=== PATIENT | male | born 1945 | race African-American/Black ===

== ENCOUNTER 2016-05-09 17:01 | Inpatient (IN) | payer MEDICARE, OTHER ==
[~2016-05-09] VITALS: Ht 180.3 cm; Wt 72.1 kg
[~2016-05-09 17:01] MED LIST: ATOR40TA68 PO; FERR325C PO; FOLI-49 PO; RISP4TAB38 PO; SYN2 PO; TAMS0.4C2 PO
[2016-05-09] MEDS ORDERED: IMIPENEM-CILAST 500MG IV (PMX) 100 ML IVPB STA (17:34)
[2016-05-09] MEDS ORDERED: SODIUM CHLORIDE 0.9% 1L BAG IV* STA (17:34)
--- NOTE | 2016-05-09 17:40 | ERA ---
ER Documentation Chief Complaint Date/Time DATE: 05/09/16 TIME: 17:35 Chief Complaint HPI Patient is a 70-year-old male who is brought here for fever and elevated [facility] count [facility]. Patient himself says he is fine and he does not know why he is here. He is more concerned about his [place] food which was left at the [facility]. He denies any chest pain, coughing, congestion, rhinorrhea, sore throat, or otalgia. He denies any abdominal pain, nausea, vomiting, diarrhea, dysuria, or hematuria. He says that he knows he had a fever because he poured sweat earlier but that he feels fine from that. He says he also had a lot of urine come out his Blackmon bag. Remainder of the systems are negative. ROS All systems reviewed and are negative except as per history of present illness. Medications Home Meds Reported Medications Acetaminophen* (Tylenol*) 325 Mg Tablet, 650 MG PO Q6H Y for MILD PAIN LEVEL 1-3 , TAB FOR FEVER>101 05/09/16 Ondansetron Hcl* (Zofran*) 4 Mg Tablet, 4 MG PO Q4H Y for NAUSEA AND OR VOMITING , TAB 05/09/16 Hydrocodone/Acetaminophen ([place] 5-325 Tablet) 1 Each Tablet, 1 EACH PO Q4H, TAB 05/09/16 Levothyroxine Sodium* (Synthroid*) 175 Mcg Tablet, 175 MCG PO BEFORE BREAKFAST, #30 TAB 05/09/16 Olanzapine* (Zyprexa*) 5 Mg Tablet, 5 MG PO BID, #30 TAB 05/09/16 Pantoprazole* (Protonix*) 40 Mg Tablet.dr, 40 MG PO QAM, TAB 05/09/16 Divalproex Sodium* (Depakote*) 500 Mg Tablet.dr, 500 MG PO BID, #60 TAB 05/09/16 Multivitamin with Minerals (Multivitamins with Minerals) 1 Each Tablet, 1 EACH PO DAILY, TAB 05/09/16 Amoxicillin/Potassium Clav (Amox-Clav 500-125 mg Tablet) 500-125 mg Tab, 1 TAB PO TID for 20 Days, TAB 05/09/16 Sulfamethoxazole-Trimethoprim* (Bactrim* DS) 800-160 Mg Tab, 1 TAB PO BID, #20 TAB 05/09/16 Tamsulosin Hcl* (Tamsulosin Hcl*) 0.4 Mg Cap.er.24h, 0.4 MG PO BID, CAP 08/19/13 Ferrous Sulfate (Iron) 325 Mg Capsr, 325 MG PO DAILY 08/19/13 Discontinued Reported Medications Levothyroxine Sodium* (Synthroid*) 200 Mcg Tablet, 200 MCG PO AC BREAKFAST, TAB 08/19/13 Risperidone* (Risperdal*) 4 Mg Tablet, 4 MG PO HS, TAB 08/19/13 Folic Acid* (Folic Acid*) 1 Mg Tablet, 1 MG PO DAILY, TAB 08/19/13 Atorvastatin* (Atorvastatin*) 40 Mg Tablet, 40 MG PO HS, TAB 08/19/13 Allergies Allergies: Coded Allergies: lithium (Unverified Allergy, Unknown, 05/09/16) PMhx/Soc History of Surgery: No Anesthesia Reaction: No Hx Neurological Disorder: No Hx Respiratory Disorders: No Hx Cardiac Disorders: No Hx Psychiatric Problems: No Hx Miscellaneous Medical Probl: No Hx Alcohol Use: No Hx Substance Use: No Hx Tobacco Use: No Physical Exam Vitals Vital Signs Date Time Temp Pulse Resp B/P Pulse Ox O2 Delivery O2 Flow Rate FiO2 05/09/16 18:10 99.7 97 17 121/58 100 Room Air 05/09/16 18:00 99.7 102 17 104/62 98 Physical Exam Const: [] Well-developed well-nourished -Samoan male sitting on the bed in no acute distress. He seems to have some tangential thinking. Head: Atraumatic normocephalic Eyes: Normal Conjunctiva ENT: Normal External Ears, Nose and Mouth. Neck: Full range of motion..~ No meningismus. Resp: Clear to auscultation bilaterally Cardio: Regular rate and rhythm, no murmurs Abd: Soft, non tender, non distended. Normal bowel sounds, no masses, rebound , or guarding Skin: No petechiae or rashes Back: No midline or flank tenderness Ext: No cyanosis, or edema Neur: Awake and alert, oriented to himself and to place but not to month or year, moves all extremities equally although generally weak, grossly nonfocal Psych: Normal Mood and Affect, very pleasant Result Diagram: 05/09/16 1803 05/09/161802 Results 24 hrs Laboratory Tests Test 05/09/16 18:03 05/09/16 18:35 White Blood Count 15.510^3/ul Red Blood Count 4.4410^6/ul Hemoglobin 10.9g/dl Hematocrit 36.5% Mean Corpuscular Volume 82.2fl Mean Corpuscular Hemoglobin 24.5pg Mean Corpuscular Hemoglobin Concent 29.9g/dl Red Cell Distribution Width 16.8% Platelet Count 43377^3/UL Mean Platelet Volume 10.5fl Neutrophils % 83.0% Lymphocytes % 10.3% Monocytes % 6.3% Eosinophils % 0.0% Basophils % 0.1% Nucleated Red Blood Cells % 0.0/100WBC Neutrophils # 12.810^3/ul Lymphocytes # 1.610^3/ul Monocytes # 1.010^3/ul Eosinophils # 0.010^3/ul Basophils # 0.010^3/ul Nucleated Red Blood Cells # 0.010^3/ul Prothrombin Time 15.8Sec Prothrombin Time Ratio 1.2 INR International Normalized Ratio 1.25 Activated Partial Thromboplast Time 34.5Sec Sodium Level 138mmol/L Potassium Level 4.3mmol/L Chloride Level 97mmol/L Carbon Dioxide Level 28mmol/L Anion Gap 17 Blood Urea Nitrogen 30mg/dl Creatinine 1.71mg/dl Glucose Level 117mg/dl Lactic Acid Level 1.4mmol/L Calcium Level 10.0mg/dl Total Bilirubin 0.2mg/dl Direct Bilirubin 0.00mg/dl Indirect Bilirubin 0.2mg/dl Aspartate Amino Transf (AST/SGOT) 38IU/L Alanine Aminotransferase (ALT/SGPT) 35IU/L Alkaline Phosphatase 117IU/L Troponin I < 0.012ng/ml Total Protein 9.5g/dl Albumin 3.9g/dl Globulin 5.60g/dl Albumin/Globulin Ratio 0.69 Urine Color LT. YELLOW Urine Clarity CLOUDY Urine pH 6.0 Urine Specific [place] 1.015 Urine Ketones NEGATIVE Urine Nitrite POSITIVE Urine Bilirubin NEGATIVE Urine Urobilinogen 0.2 E.U./dL Urine Leukocyte Esterase 2+ Urine Microscopic RBC 5-10/HPF Urine Microscopic WBC >200/HPF Urine Squamous Epithelial Cells RARE Urine Bacteria MANY Urine Hemoglobin 1+ Urine Glucose NEGATIVE% Urine Total Protein 1+ Current Medications Medications (Trade) Dose Ordered Sig/Ramirez Route PRN Reason Start Time Stop Time Status Last Admin Dose Admin Sodium Chloride 2170 ml 2,170 ml BOLUS OVER 2 HOURS STAT IV* 05/09/16 17:34 05/09/16 17:36 DC 05/09/16 18:10 Imipenem/ Cilastatin Sodium (Primaxin 500 Mg/ 100 ml (Pmx)) 100 ml @ 100 mls/hr ONCE STAT IVPB 05/09/16 17:34 05/09/16 18:33 DC 05/09/16 18:59 Procedures/MDM Differential includes but is not limited to leukocytosis of unclear etiology, urinary tract infection, sepsis, pneumonia EKG: Rate/Rhythm: Normal Sinus Rhythm at 90 bpm without any evidence of acute ischemia, arrhythmia, or ectopy noted, no old EKG available for comparison QRS, ST, T-waves: No changes consistent w/ acute ischemia Impression: No evidence of ischemia or arrhythmia Chest x-ray reveals no evidence for acute cardiopulmonary process CT of abdomen and pelvis shows right hydronephrosis and right perinephric stranding consistent with possible pyelonephritis, no other acute findings noted per the radiologist 192: Patient remains hemodynamically stable. I spoke with his primary care physician to have him admitted to the hospital for pyelonephritis. Departure Diagnosis: Primary Impression: Pyelonephritis Additional Impressions: Leukocytosis Qualified Code: D72.825 - Bandemia Urinary retention due to benign prostatic hyperplasia Condition: ANÍBAL Apodaca May 09, 2016 17:40
[2016-05-09 18:10] VITALS: TEMP 99.7
[2016-05-09 18:25] LABS: ADD SCAN DIFF NO
[2016-05-09 18:30] LABS: BASOPHILS % 0.1 % (0.0-2.0); HEMATOCRIT 36.5 % (42.0-52.0); HEMOGLOBIN 10.9 g/dl (14.0-18.0); LYMPHOCYTES # 1.6 10^3/ul (0.8-2.9); LYMPHOCYTES % 10.3 % (15.0-51.0); MEAN CORPUSCULAR HEMOGLOBIN 24.5 pg (29.0-33.0); MEAN CORPUSCULAR HGB CONC 29.9 g/dl (32.0-37.0); MEAN CORPUSCULAR VOLUME 82.2 fl (82.0-101.0); MEAN PLATELET VOLUME 10.5 fl (7.4-10.4); MONOCYTES % 6.3 % (0.0-11.0); NEUTROPHIL # 12.8 10^3/ul (1.6-7.5); PLATELET COUNT 352 10^3/UL (140-415); RED BLOOD COUNT 4.44 10^6/ul (4.70-6.10); RED CELL DISTRIBUTION WIDTH 16.8 % (11.5-14.5); WHITE BLOOD COUNT 15.5 10^3/ul (4.8-10.8)
[2016-05-09 18:40] LABS: ALBUMIN 3.9 g/dl (3.3-4.9)
[2016-05-09 18:41] LABS: CHLORIDE 97 mmol/L (97-110); POTASSIUM 4.3 mmol/L (3.5-5.1); PT RATIO 1.2; SODIUM 138 mmol/L (135-144)
[2016-05-09 18:42] LABS: PARTIAL THROMBOPLASTIN TIME 34.5 Sec (25.0-35.0)
[2016-05-09 18:43] LABS: ANION GAP 17 (8-16); ASPARTATE AMINO TRANSFERASE 38 IU/L (15-46); BILIRUBIN,INDIRECT 0.2 mg/dl (0-1.1); BILIRUBIN,TOTAL 0.2 mg/dl (0.2-1.3); CARBON DIOXIDE 28 mmol/L (21-31); CREATININE 1.71 mg/dl (0.61-1.24)
[2016-05-09 18:44] LABS: ALANINE AMINOTRANSFERASE 35 IU/L (13-69); ALBUMIN/GLOBULIN RATIO 0.69; ALKALINE PHOSPHATASE 117 IU/L (42-121); BLOOD UREA NITROGEN 30 mg/dl (7-20); GLUCOSE 117 mg/dl (70-220); TOTAL PROTEIN 9.5 g/dl (6.1-8.1)
[2016-05-09] MEDS ORDERED: AMOX1TAB9 PO (18:53)
[2016-05-09] MEDS ORDERED: BACTDS PO (18:53)
[2016-05-09] MEDS ORDERED: MULT-105 PO (18:54)
[2016-05-09] MEDS ORDERED: DIVA500T7 PO (18:55)
[2016-05-09 18:56] LABS: ADD UMIC YES; URINE BILIRUBIN (Dip) NEGATIVE (NEGATIVE); URINE BLOOD (Dip) 1+ (NEGATIVE); URINE COLOR LT. YELLOW (YELLOW); URINE GLUCOSE (Dip) NEGATIVE (NEGATIVE); URINE KETONES (Dip) NEGATIVE (NEGATIVE); URINE LEUKOCYTE ESTERASE (Dip) 2+ (NEGATIVE); URINE NITRITE (Dip) POSITIVE (NEGATIVE); URINE TOTAL PROTEIN (Dip) 1+ (NEGATIVE); URINE UROBILINOGEN (Dip) 0.2 E.U./dL (0.1-1.0)
[2016-05-09] MEDS ORDERED: PANT40TA3 PO (18:56)
[2016-05-09] MEDS ORDERED: LEVO175T2 PO (18:57)
[2016-05-09] MEDS ORDERED: OLAN5TAB5 PO (18:57)
--- NOTE | 2016-05-09 18:57 | RADRPT ---
PROCEDURE: XR Chest. CLINICAL INDICATION: Possible sepsis. TECHNIQUE: PA erect view of the chest was obtained. COMPARISON: None. FINDINGS: The cardiomediastinal silhouette is within normal limits. The lungs are clear. There is no evidenc e for pleural effusion, pneumothorax or pulmonary vascular congestion. The osseous structures are i ntact with no evidence for acute abnormality. RPTAT:HJJR IMPRESSION: No evidence for acute intrathoracic pathology. Physician Radha Date Time Electronically viewed and signed by Physician Radha on 05/09/2016 18:57 JR/
[2016-05-09] MEDS ORDERED: HYDR-906 PO (18:58)
[2016-05-09] MEDS ORDERED: ONDA4TAB8 PO (18:58)
[2016-05-09] MEDS ORDERED: ACET325T33 PO (19:00)
[2016-05-09 19:03] LABS: TROPONIN-I < 0.012 ng/ml (0.00-0.12)
[2016-05-09 19:08] LABS: BACTERIA,URINE MANY; SQUAMOUS EPITHELIAL CELL,UR RARE
--- NOTE | 2016-05-09 19:10 | RADRPT ---
PROCEDURE: CT Abdomen and Pelvis without contrast. CLINICAL INDICATION: Fever. White cell count. TECHNIQUE: CT scan of the abdomen and pelvis was performed on a multidetector slice CT scanner. No intravenous contrast material was utilized. Sagittal and coronal reformatted images were obtained fr om the axial source images. Images were reviewed on a high-resolution PACS workstation. Exam CTDlvol = 7 mGy and DLP = 391 Gy-cm. One of the following 3 dose reduction techniques were used: Automated exposure control; adjustment of the mA and/or kV according to patient size; or use of iterative zachary nstruction technique. COMPARISON: None. FINDINGS: There is asymmetric right greater left perinephric stranding. There is mild right hydronephrosis an d diffuse hydroureter without a obstructing calculus. There is no left-sided hydronephrosis, calcul us or hydroureter. There is a Blackmon catheter within urinary bladder with likely related intraluminal gas. The bladder contents are mildly dense suggesting other hemorrhage or infection/positive. Wal ls of the urinary bladder and prostate gland are not well defined. There is no obstruction or ileus. The probable appendix is visualized and is normal in appearance. There is no evidence for appendicitis.. There is proximal sigmoid colon diverticulosis without evid ence for diverticulitis. There is minimal pelvic free fluid. The liver is overall normal in size. No intrahepatic lesions are identified. The gallbladder is norm al in appearance. There is no definite biliary ductal dilation. Pancreas is normal in appearance. Th e spleen is unremarkable.. There are no adrenal masses. The aorta is normal caliber. Atheroscleroti c vascular calcifications are present.. Uterus unremarkable. The ovaries are not well characterized. Limited evaluation lung bases is unremarkable. There are degenerative changes of the lumbar spine. IMPRESSION: 1. Right perinephric stranding. Mild right hydronephrosis and diffuse hydroureter without obstructi ng calculus. No calculus within urinary bladder. Relatively hyperdense bladder contents. Findings are suggestive of a passed calculus with possible hemorrhage within urinary bladder. Other conside rations include a pyelonephritis with infection/possible in the right renal collecting system the ur inary bladder. A cystitis cannot be excluded. 2. Probable appendix normal in appearance. 3. Sigmoid colon diverticulosis without focal changes to suggest acute diverticulitis. 4. Minimal pelvic free fluid. RPTAT: HMVK .Rei Martinez MD, MD Date Time Electronically viewed and signed by .Rei Martinez MD, MD on 05/09/2016 19:09 .K/
[2016-05-09 19:26] LABS: INR 1.25; PROTIME 15.8 Sec (12.2-14.2)
[2016-05-09] MEDS ORDERED: ONDANSETRON 4 MG INJ IV PRN ×2 (19:30→23:30)
[2016-05-09] MEDS ORDERED: ACETAMINOPHEN 325 MG TAB PO PRN ×2 (19:30→23:30)
[2016-05-09 21:35] VITALS: Ht 180.3 cm; Wt 72.1 kg
[2016-05-09 21:45] VITALS: BP 118/55; RESP 18
[2016-05-09] MEDS ORDERED: GUAIFENESIN/CODEINE 5ML CUP PO PRN (22:30)
[2016-05-09] MEDS ORDERED: ZOLPIDEM 5 MG TAB PO PRN (23:30)
[2016-05-09] MEDS ORDERED: NACL 0.9% 3 ML SYG IV SCH (23:30)
[2016-05-09] MEDS ORDERED: morphine 2 MG INJ IV PRN (23:30)
[2016-05-09] MEDS ORDERED: DOCUSATE SODIUM 100 MG CAP PO PRN (23:30)
[2016-05-09] MEDS ORDERED: MAGNESIUM HYDROXIDE 30ML CUP PO PRN (23:30)
[2016-05-09] MEDS: SOD CHLORIDE 0.9% 1,000 ML IV SCH (23:44)
[2016-05-10] MEDS: IMIPENEM-CILAST 500MG IV (PMX) 100 ML IV SCH ×3 (05:21→22:15)
[2016-05-10] MEDS: PANTOPRAZOLE (EC) 40 MG TAB PO SCH (05:21)
[2016-05-10 05:52] LABS: ADD SCAN DIFF NO
[2016-05-10 06:10] LABS: BASOPHILS % 0.1 % (0.0-2.0); EOSINOPHILS % 0.2 % (0.0-7.0); HEMATOCRIT 31.1 % (42.0-52.0); HEMOGLOBIN 9.2 g/dl (14.0-18.0); LYMPHOCYTES # 1.2 10^3/ul (0.8-2.9); LYMPHOCYTES % 11.8 % (15.0-51.0); MEAN CORPUSCULAR HEMOGLOBIN 25.1 pg (29.0-33.0); MEAN CORPUSCULAR HGB CONC 29.6 g/dl (32.0-37.0); MEAN PLATELET VOLUME 11.1 fl (7.4-10.4); MONOCYTE # 0.9 10^3/ul (0.3-0.9); MONOCYTES % 8.6 % (0.0-11.0); NEUTROPHIL # 8.2 10^3/ul (1.6-7.5); NEUTROPHILS % 78.9 % (39.0-77.0); RED BLOOD COUNT 3.66 10^6/ul (4.70-6.10); RED CELL DISTRIBUTION WIDTH 17.2 % (11.5-14.5); WHITE BLOOD COUNT 10.4 10^3/ul (4.8-10.8)
[2016-05-10 06:22] LABS: PLATELET COUNT 278 10^3/UL (140-415)
[2016-05-10 06:23] LABS: ALBUMIN 2.8 g/dl (3.3-4.9)
[2016-05-10 06:24] LABS: POTASSIUM 4.3 mmol/L (3.5-5.1)
[2016-05-10 06:26] LABS: ALBUMIN/GLOBULIN RATIO 0.62; CREATININE 1.3 mg/dl (0.61-1.24); TOTAL PROTEIN 7.3 g/dl (6.1-8.1)
[2016-05-10 06:27] LABS: CALCIUM 8.5 mg/dl (8.4-10.2); MAGNESIUM 2.3 mg/dl (1.7-2.5); PHOSPHORUS 3.4 mg/dl (2.5-4.9)
[2016-05-10 06:52] LABS: THYROID STIMULATING HORMONE 0.062 MIU/L (0.465-4.680)
[2016-05-10] MEDS ORDERED: LEVOTHYROXINE 175 MCG TAB PO SCH (07:00)
[2016-05-10 08:12] VITALS: BP 117/63; RESP 18
[2016-05-10] MEDS: OLANZAPINE 5 MG TAB PO SCH ×2 (08:58→20:58)
[2016-05-10] MEDS: HEPARIN 5,000 UNIT/0.5 ML VIAL SC SCH ×2 (09:07→21:00)
[2016-05-10] MEDS: DIVALPROEX (EC) 500 MG TAB PO SCH ×2 (09:25→20:57)
[2016-05-10] MEDS: SOD CHLORIDE 0.9% 1,000 ML IV SCH ×2 (11:32→13:30)
--- NOTE | 2016-05-10 16:21 | CONS ---
DATE OF ADMISSION: 05/09/2016 DATE OF CONSULTATION: 05/10/2016 TYPE OF CONSULTATION: Infectious Disease. REASON FOR CONSULTATION: Antibiotic management. HISTORY OF PRESENT ILLNESS: Florentino Haas is a 70-year-old black male with a number of problems, w ho was brought in from the from a senior care with fever and elevated white count. He denies chest pain, coughing, congestion. Denies abdominal pain. He knows he had a fever because he had sweat e arlier. His past problems include: 1. Hypothyroidism. 2. Hyperlipidemia. 3. Blackmon catheter for urinary retention. 4. Depression. 5. ALLERGY TO LITHIUM. On admission, his white count was 15.5, H and H of 10.9 and 36.5, platelet count 352,000. BUN and c reatinine 30/1.71, glucose 117. PAST MEDICAL HISTORY: Operations as outlined. FAMILY HISTORY: Noncontributory. SOCIAL HISTORY: Does not smoke, drink or abuse drugs. ALLERGIES: NONE TO PENICILLIN, SULFA OR FOODS. MEDICATIONS: Per chart. REVIEW OF SYSTEMS: Noncontributory. PHYSICAL EXAMINATION: GENERAL: The patient is a well-developed, well-nourished black male who is awake, responsive, in no acute distress. VITAL SIGNS: Stable. He is afebrile. SKIN: Without generalized rash. HEENT: Within normal limits. NECK: Supple. LYMPH NODES: None palpable. CHEST: Decreased breath sounds at the bases. HEART: Without murmur or gallop. ABDOMEN: Soft, nontender, without organosplenomegaly or masses. EXTREMITIES: Without cyanosis, clubbing, or edema. RECTAL AND GENITAL: Deferred. NEUROLOGICAL: No focal neurological abnormalities. HOSPITAL COURSE: His white count today dropped from 15.5 to 10.4. BUN and creatinine is 25/1.3. C hest x-ray: No evidence of acute intrathoracic pathology. CT scan of the abdomen and pelvis shows right perinephric stranding, mild right hydroureter and diffuse hydroureter with obstructing calculu s, relatively hyperdense bladder contents suggestive of passed calculus. His urine grew out greater than 10 to the 5th gram-negative rods. Wound culture of the right buttock and left buttock are pen ding. IMPRESSION AND PLAN: The patient was started on imipenem for broad spectrum antibiotic therapy. Hi s MRSA screen was done and urine culture and blood cultures were done, so we will await final result s of his Gram stain and for pyelonephritis and for urinary tract infection. I will dictate my findi ngs to Dr. Tate. Dictated By: PATRICK CLEMONS MD, JD/ROLANDO Conf#: [id number] DID#: [id number]
--- NOTE | 2016-05-10 18:24 | HP ---
DATE OF ADMISSION: 05/09/2016 REASON FOR ADMISSION: Urinary tract infection, pyelonephritis, acute renal failure, dehydration, mu ltiple perirectal abscesses, early sepsis. HISTORY OF PRESENT ILLNESS: The patient is a very unfortunate 70-year-old -Mongolian male w ith a history of COPD, urinary retention, BPH, multiple perirectal abscesses, anemia, gastroesophage al reflux disease, hypothyroidism, psychiatric disorder, who currently resides at [facility]. He was previously admitted under my care to [facility] fo r almost the same. The patient was noted to have increasing leukocytosis, and he was recently start ed on antibiotics. Unfortunately, the patient also was noted to be more psychotic, with may be rel ated to the above infectious process. It was decided to send the patient for evaluation. In the E R, the patient was febrile at 99.7, white count was elevated at 15.5, and he had elevated BUN and cr eatinine of 30 and 1.71. Urine was remarkably positive at greater than 200 WBCs and positive nitrat es and leukocyte esterase was seen. He was also noted to have multiple ____ rectal abscesses. The patient has seen Dr. Jona Espinoza, the urologist, on an outpatient basis, and at that time it was recommended for him to keep the Blackmon, as the patient has been refusing prostate surgery and also, h e was recommended by Dr. Villareal, the colorectal surgeon, to follow up and [facility] for further care. In e meantime, Sitz baths were recommended and local wound care. Unfortunately, the patient still has quite a lot of problems regarding his urinary and rectal issues. The patient overall is somewhat ps ychotic, does not understand the patient's condition, refused previous surgeries or testing, not lindsey y compliant. The patient otherwise denies any chest pain or shortness of breath, denies any fever o r chills, denies any abdominal pain. He is requesting to smoke. The patient was admitted. PAST MEDICAL HISTORY: Includes: 1. COPD. 2. Perirectal abscesses. 3. Muscle weakness. 4. Hypothyroidism. 5. Anemia. 6. Nicotine dependency. 7. Psychiatric disorder. ALLERGIES: LITHIUM. MEDICATIONS: Include the followin. Flomax 0.4 ____. 2. ____daily. 3. Tylenol p.r.n. 4. Depakote 500 b.i.d. 5. [place] 5/325 q. 4 p.r.n. 6. Zyprexa 5 b.i.d. 7. Zofran p.r.n. 8. Protonix 40 mg daily. 9. Synthroid 175 mcg daily. 10. Multivitamin 1 tab daily. CODE STATUS: I reviewed his advance directive. It stated that he is DNR with selective treatment, okay to transfer to hospital if no comfort can be made. FAMILY HISTORY: Unknown. SOCIAL HISTORY: Tobacco, smokes actively. Alcohol, IV drug abuse: Denies. PHYSICAL EXAMINATION: VITAL SIGNS: Temperature 98.8, pulse is 77, respirations 18, blood pressure 117/66, oxygen saturat ion 98% on room air. GENERAL: The patient is in no acute distress, pale, decreased dentition. CARDIOVASCULAR: S1 and S2. LUNGS: Faint wheezing. ABDOMEN: Soft, nontender. EXTREMITIES: No cyanosis, clubbing or edema. : Blackmon to gravity. The patient does have multiple draining abscesses with pus draining from his perirectal area. LABORATORIES: White count 10.4, improved; hemoglobin 9.2, hematocrit 31, platelet count is 278, neut rophils 79%, lymphocytes 12%. Chemistry: Sodium 138, potassium 4.3, chloride 107, bicarbonate 22 , BUN is 75, creatinine was 0.3, glucose of 115. Albumin 2.8, TSH is low at 0.062. UA shows positi ve nitrites, positive leukocyte esterase, WBC ____ at 200. Total protein +1. Hemoglobin +1. Iron 1.25. Urine culture already shows gram negative rods, ____ 100,000. Wound culture is pending. Chest x-ray shows the following : No evidence of acute intrathoracic pathology. There is a CT scan of the abdomen and pelvis which shows the following: Right perinephric strandin g, mild right hydronephrosis and diffuse hydroureter without obstructive calculus. No calculus was seen in the urinary bladder. Relatively hypodense bladder contents. Finding is suggestive of past calculus with possible hemorrhoids within the urinary bladder. Other considerations include a pyelo nephritis with infection possible in the right renal collecting system. In the urinary bladder, cys titis cannot be excluded, with probable appendix normal in appearance. Sigmoid colon: Diverticulos is without focal changes to suggest acute diverticulitis. Minimal pelvic free fluid. EKG shows normal sinus rhythm at 87 beats per minute. ASSESSMENT AND PLAN: This is a very unfortunate 70-year-old -Mongolian male with a history of psychiatric disorder, urinary retention, benign prostatic hypertrophy, multiple microabscesses, an emia, and chronic obstructive pulmonary disease who presents with pyelonephritis, urinary tract infe ction, early sepsis, also multiple infected draining perirectal abscesses. 1. Pyelonephritis. Continue imipenem. Follow up urine culture results. White count is already im proving. I appreciate ID input. 2. Perirectal abscesses, appear to be draining pus. Follow up with cultures, adjust antibiotics as needed. Colorectal surgeon will be consulted. 3. Urinary retention. We will consult Dr. Espinoza for further recommendations as the patient wants to go in an assisted living facility, which may be difficult with the Blackmon. 4. Psychiatric disorder. Continue Depakote and Zyprexa. 5. Chronic obstructive pulmonary disease, compensated. 6. Acute renal failure. The patient will be hydrated with IV fluids. Monitor urine output. 7. Hypothyroidism, now with low TSH. Will decrease dose of Synthroid 175 to 125. Follow up TSH le guilherme in 2 to 3 weeks. 8. Anemia. This may be from blood loss, as previously he had gross hematuria. May need to limit b lood thinners. Followup H and H. Transfusion will be given as needed. 9. The patient will be placed on DVT prophylaxis with SCDs and GI prophylaxis with Protonix. We will follow. Dictated By: CHRISTINE MALDONADO/ROLANDO Conf#: [id number] DID#: [id number]
[2016-05-10 19:29] VITALS: BP 97/53; RESP 20
[2016-05-10] MEDS: TAMSULOSIN (SR) 0.4 MG CAP PO SCH (20:58)
[2016-05-10 21:00] VITALS: BP 119/57; PULSE 80; RESP 16
--- NOTE | 2016-05-10 21:47 | CONS ---
DATE OF ADMISSION: 05/09/2016 DATE OF CONSULTATION: 05/10/2016 REQUESTING PHYSICIAN: Dr. Christine Calderon Dear Christine: Thank you for asking me to see Mr. Haas in urological consultation. HISTORY OF PRESENT ILLNESS: As you know, he is a 70-year-old male who is well know n to us from his prior admission to [facility]. At that time, he was admitted with perirectal abscesses that were extending to the right hemipelvis. Also at that time, he did have an enlarged prostate with urinary retention and severe right hydronephrosis. The patient refused to h ave any surgery on his perirectal abscesses and he just only wanted it to drain by itself. Attempts were made, at the time, to remove his Blackmon catheter and see if he does void on his own and that wa s not successful. Therefore, the Blackmon catheter was put back in. He since was seen in the office 1 time. The long-term brought him to the office and I instructed them to keep the Blackmon catheter in and change it every month or earlier if it is obstructed. The patient does need to have a Blackmon catheter because of the retention, and also because if he has the retention, the urine is backing up into his right kidney. Apparently, the patient was brought here to [facility] be cause of again urinary tract infection, pyelonephritis, acute renal failure, early sepsis, and perir ectal abscesses. The patient does have psychiatric problems and he is on psychiatric medications. MEDICATIONS: Include: 1. Benzonatate 100 mg 3 times a day. 2. Benztropine 1 mg 2 times a day. 3. Depakote 250 mg 2 times a day. 4. Flomax 0.4 mg daily. 5. Levothyroxine 200 mcg every day. 6. Seroquel 25 mg 2 times a day. 7. Trazodone 50 mg daily. 8. Zyprexa 5 mg 2 times a day. SOCIAL HISTORY: He is a smoker. He denies any drug or alcohol abuse. PHYSICAL EXAMINATION: GENERAL: Reveals an elderly male. He weighs 72.1 kg. He is 71 inches tall. VITAL SIGNS: His temperature is 98.8, pulse is 87, respiration 18, blood pressure 117/63. ABDOMEN: Soft. There is no abdominal mass palpable or tenderness at the present. He does have an indwelling Blackmon catheter that is draining clear urine. GENITALIA: External genitalia are otherwise normal. Rectal. The patient lay on his side and they still have bandages on the periscrotal, perianal area and is still draining. One could see the drainage on his bed sheet from these abscesses. LABORATORY DATA: CBC shows a white count of 15.5 on admission, today is 10.4; hemoglobin 10.9, toda y is 9.2; hematocrit 31.1. The BUN is 25, creatinine 1.30, sodium 138, potassium 4.3, chloride 107, CO2 of 23. PT is 15.8, INR 1.25. Urine culture showing 100,000 colonies per mL of gram-negative r ods. The sensitivity is pending. IMPRESSION: Urinary retention and an enlarged prostate, but most likely his urinary retention is se condary to his rectal problem with abscesses, also side effect of the psychiatric medication that he does have and also the enlarged prostate. Because of the urinary retention, his urine is backing u p to his right kidney. Therefore, he will have worse pyelonephritis should he have any retention. PLAN: Therefore, recommendation is to keep the Blackmon catheter in, treat any symptomatic urinary tra ct infection, and while he is in the hospital, we may try to see if he could urinate on his own. Th erefore, I will start him on Flomax 1 capsule daily and, in a few days, we will remove the Blackmon and see if he does urinate. Dictated By: UCHE PEÑA MD BB/NTS Conf#: [id number] DID#: [id number] CC: AV CALDERON MD; CHRISTINE CALDERON MD;*[facility]*
[2016-05-11] MEDS: SOD CHLORIDE 0.9% 1,000 ML IV SCH ×2 (03:51→12:32)
[2016-05-11 05:45] LABS: ADD SCAN DIFF NO
[2016-05-11 05:57] LABS: BASOPHILS % 0.2 % (0.0-2.0); EOSINOPHILS % 0.4 % (0.0-7.0); HEMATOCRIT 30.6 % (42.0-52.0); HEMOGLOBIN 9.2 g/dl (14.0-18.0); LYMPHOCYTES # 1.7 10^3/ul (0.8-2.9); LYMPHOCYTES % 18.5 % (15.0-51.0); MEAN CORPUSCULAR HEMOGLOBIN 24.9 pg (29.0-33.0); MEAN CORPUSCULAR HGB CONC 30.1 g/dl (32.0-37.0); MEAN CORPUSCULAR VOLUME 82.9 fl (82.0-101.0); MEAN PLATELET VOLUME 9.9 fl (7.4-10.4); MONOCYTE # 0.9 10^3/ul (0.3-0.9); MONOCYTES % 9.2 % (0.0-11.0); NEUTROPHIL # 6.6 10^3/ul (1.6-7.5); NEUTROPHILS % 71.2 % (39.0-77.0); PLATELET COUNT 349 10^3/UL (140-415); RED BLOOD COUNT 3.69 10^6/ul (4.70-6.10); RED CELL DISTRIBUTION WIDTH 16.7 % (11.5-14.5); WHITE BLOOD COUNT 9.3 10^3/ul (4.8-10.8)
[2016-05-11 06:01] LABS: POTASSIUM 4.5 mmol/L (3.5-5.1)
[2016-05-11 06:04] LABS: CREATININE 1.09 mg/dl (0.61-1.24)
[2016-05-11 06:05] LABS: CALCIUM 8.8 mg/dl (8.4-10.2)
[2016-05-11 06:17] LABS: PHOSPHORUS 3.7 mg/dl (2.5-4.9)
[2016-05-11] MEDS: PANTOPRAZOLE (EC) 40 MG TAB PO SCH (06:17)
[2016-05-11] MEDS: IMIPENEM-CILAST 500MG IV (PMX) 100 ML IV SCH ×3 (06:17→21:29)
[2016-05-11] MEDS: LEVOTHYROXINE 125 MCG TAB PO SCH (06:18)
[2016-05-11 07:49] VITALS: BP 115/56; RESP 22
[2016-05-11] MEDS: OLANZAPINE 5 MG TAB PO SCH ×2 (10:02→20:57)
[2016-05-11] MEDS: DIVALPROEX (EC) 500 MG TAB PO SCH ×2 (10:02→20:57)
[2016-05-11] MEDS: HEPARIN 5,000 UNIT/0.5 ML VIAL SC SCH ×2 (10:04→20:57)
--- NOTE | 2016-05-11 14:52 | PN ---
DATE: 05/11/2016 SUBJECTIVE: Patient seen. I spoke with Dr. Villareal, the colorectal surgeon who recommended to refer the patient to [facility]. I spoke with another surgeon, who stated that for him the best would be to see a colorectal surgeon. I appreciate Dr. Espinoza's urology input noted recommendation. There is a plan to attempt to remove the Blackmon and monitor post void residual. The patient is responding to the antibiotics management. His white count now normalized. Patient overall is feeling better and he is afebrile. PHYSICAL EXAMINATION: VITAL SIGNS: Temperature 98.6, pulse 61, respirations 22, blood pressure 115/56 , saturation 97% on room air. GENERAL: The patient in no acute distress. The patient is pale, decreased dentition. CARDIOVASCULAR: S1, S2 regular rate. LUNGS: Clear. ABDOMEN: Soft, nontender. EXTREMITIES: No clubbing, cyanosis, or edema. GENITOURINARY: Blackmon to gravity. LABORATORY DATA: White count 9.3, hemoglobin 9.2, hematocrit 31, platelet count 349, neutrophils 71%, lymphocytes 19%. Chemistry: Sodium 141, potassium 4.5, chloride 108, bicarbonate 26, BUN 16, creatinine 1.09, glucose of 103. UA was remarkably positive on admission with +2 leukocyte esterase, nitrites positive, WBC greater than 200. Urine culture shows E. coli ESBL sensitive to imipenem, cefepime, amikacin and nitrofurantoin. Wound culture also shows gram- negative rods. Repeat urine culture yesterday also shows gram-negative rods, but less than 10 to the 4th. The patient is responding to the antibiotics. MEDICATIONS: 1. Synthroid 125 mcg daily dose was decreased. 2. Flomax 0.4 at bedtime. 3. Heparin 5000 q.12h. 4. Depakote 500 b.i.d. 5. Zyprexa 5 mg b.i.d. 6. Protonix 40 mg daily. 7. Imipenem 500 IV q.8h. 8. Zofran p.r.n. 9. Tylenol p.r.n. 10. Drums p.r.n. 11. Morphine p.r.n. 12. ____ 13. Milk of magnesia p.r.n. 11. Ambien p.r.n. 12. Currently on normal saline at 80 mL an hour. 13. Robitussin p.r.n. as well. ASSESSMENT AND PLAN: This is a 70-year-old -[place] male with history of psychiatric disorder, urinary retention, BPH, multiple perirectal microabscesses, anemia, COPD, who presented with pyelonephritis, UTI, early sepsis, also multiple infected draining perirectal abscesses. 1. Pyelonephritis responding with antibiotics with imipenem. Continue current antibiotics. Attempt to remove Blackmon per Dr. Espinoza. White count is now normal. 2. Perirectal abscess. Followup wound culture. Continue antibiotics. Definitely needs a colorectal surgeon. Difficulty obtaining a surgeon here. I will refer him to [facility] as an outpatient basis. 3. Urinary retention. Again attempt to remove Blackmon. Follow up post void residual. Continue Flomax. 4. Hypothyroidism with low TSH. I reduced the dose of Synthroid from 175 to 125. 5. Acute renal failure, resolved with hydration. Hep-Lock IV fluids. Encourage patient to eat more, and encourage hydration. 6. Anemia. H and H remains stable. Monitor p.r.n. transfusion. Patient's urine appears to be clear. There is no gross hematuria. 7. Continue deep vein thrombosis prophylaxis and gastrointestinal prophylaxis. 8. Psychiatric disorder. Continue Depakote and Zyprexa. Keep patient comfortable. We will follow. Will ask briefcase sewer to assist with placement as may be an issue. We will follow. Dictated By: CHRISTINE MALDONADO/ROLANDO Conf#: [id number] DID#: [id number] MTDD
--- NOTE | 2016-05-11 15:48 | PN ---
DATE: 05/11/2016 INFECTIOUS DISEASE PROGRESS NOTE SUBJECTIVE: No events overnight. The patient is awake, lying comfortably in bed. Denies pain. No fevers. WBC today 9.3. No shift, no bands. BUN 16, creatinine 1.09. MICROBIOLOGY: Urine culture growing E. coli ESBL. Bilateral wound cultures of buttocks growing gra m-negative rods. ANTIMICROBIALS: The patient is on Imipenem, day #2. PHYSICAL EXAMINATION: GENERAL: Well-developed, elderly, -[place] man, who is alert, in no distress. HEENT: Head atraumatic, normocephalic. Sclerae anicteric. Buccal mucosa dry. NECK: Supple. CHEST: Chest rise is symmetrical. Breath sounds clear. HEART: S1, S2. ABDOMEN: Soft, bowel tones present. EXTREMITIES: Without cyanosis. ASSESSMENT: 1. Acute pyelonephritis with Escherichia coli extended-spectrum beta-lactamase urinary tract infect ion. 2. Significant urinary retention, status post Blackmon catheter. 3. Hyperlipidemia. 4. Hypothyroidism. PLAN: The patient remains stable, on appropriate antimicrobials, which we are going to continue. U melissa on the case. Await final cultures. Dictated By: KAITLIN CARLOS FELT MACHINE MECHANIC for PATRICK MCLEOD/ROLANDO Conf#: [id number] DID#: [id number]
--- NOTE | 2016-05-11 17:49 | PN ---
DATE: 05/11/2016 CHIEF COMPLAINT: Urinary retention, urinary tract infection and the patient does also have perirect al abscesses. SUBJECTIVE: The patient himself has stated that he is feeling better, his pain is much less and the Blackmon catheter is draining well. OBJECTIVE VITAL SIGNS: His temperature is 98.6, his pulse is 61, the blood pressure 115/56, the respiration i s 22. ABDOMEN: Soft. There is no mass palpable. GENITOURINARY: External genitalia is normal. He does have an indwelling Blackmon catheter that is cathy ining clear urine. LABORATORY DATA: His CBC shows a white count of 9.3, hemoglobin 9.2, hematocrit 30.6; platelet coun t 349,000. BUN is 16, creatinine 1.09. Electrolytes are normal. The urine culture shows gram-nega tive rods. On admission, his urine culture also did show a urinary tract infection with ESBL E coli . The patient is on tamsulosin and on Primaxin. IMPRESSION: Urinary retention, urinary tract infection and perirectal abscess. PLAN: To give him another chance to remove the Blackmon catheter and see if he does urinate on his own . Therefore, we will remove the Blackmon catheter at 6:00 a.m. in the morning. Every time he voids, w e will do a bladder scan to check his postvoid residual and do a straight catheterization for postvo id residual over 300 or a bladder scan of over 500 if he does not urinate. In the meantime, contin ue the antibiotic and the tamsulosin. Dictated By: UCHE MCCABE/ROLANDO Conf#: [id number] DID#: [id number]
--- NOTE | 2016-05-11 20:30 | CONS ---
DATE OF ADMISSION: 05/09/2016 DATE OF CONSULTATION: TYPE OF CONSULTATION: Gastroenterology. REFERRING PHYSICIAN: Dr. Manjit Tate HISTORY OF PRESENT ILLNESS: A 70-year-old male with history of COPD, BPH, multiple perirect al abscesses, hypothyroidism, psychiatric disorder was admitted to the hospital for increasing white cell count. The patient was evaluated in the ER. His temperature was 99. WBC was 55. BUN was 30 . Diagnosis of pyelonephritis entertained and was admitted for further management. The patient als o has a rectal abscess and was seen by Dr. Villareal, the sports betting manager, and advised the patient being fol lowed at [facility]. The patient is also somewhat psychotic. He had refused prostate surgery. PAST MEDICAL HISTORY: COPD, perirectal abscess, hypothyroidism, anemia, nicotine dependency and psy chiatric disorder. ALLERGIES: LITHIUM. MEDICATIONS: All his medications reviewed. CODE STATUS: HE IS A FULL CODE. FAMILY HISTORY: Unknown. SOCIAL HISTORY: Smokes tobacco regularly. No alcohol, IV drug abuse. PHYSICAL EXAMINATION: GENERAL: Alert, awake, not in distress. VITAL SIGNS: Stable. ABDOMEN: Benign. LUNGS: Clear. EXTREMITIES: No edema. CENTRAL NERVOUS SYSTEM: Grossly within normal limits. RECTAL: Deferred at this point. The patient refused at this point, but as per the chart, he has mu ltiple draining abscesses. CAT scan of the abdomen and pelvis done suggestive of pyelonephritis, and maybe he passed a calculus . IMPRESSION: 1. Multiple perirectal abscesses. 2. Pyelonephritis. 3. Urinary retention. 4. Psychiatric disorder. 5. Chronic obstructive pulmonary disease. 6. Hypothyroidism. 7. Anemia. PLAN: Continue antibiotic. I would add Flagyl to the present regimen, and hopefully patient can go to [facility] for further workup and followup. Dictated By: KEELEY CUEVAS/ROLANDO Conf#: [id number] DID#: [id number]
[2016-05-11 20:34] VITALS: BP 97/52; RESP 20
[2016-05-11] MEDS: TAMSULOSIN (SR) 0.4 MG CAP PO SCH (20:57)
[2016-05-12] MEDS: PANTOPRAZOLE (EC) 40 MG TAB PO SCH (06:26)
[2016-05-12] MEDS: LEVOTHYROXINE 125 MCG TAB PO SCH (06:26)
[2016-05-12] MEDS: IMIPENEM-CILAST 500MG IV (PMX) 100 ML IV SCH ×3 (06:26→21:17)
[2016-05-12 07:00] VITALS: BP 91/52; RESP 20
[2016-05-12] MEDS: OLANZAPINE 5 MG TAB PO SCH ×2 (08:12→21:17)
[2016-05-12] MEDS: DIVALPROEX (EC) 500 MG TAB PO SCH ×2 (08:12→21:16)
[2016-05-12] MEDS: HEPARIN 5,000 UNIT/0.5 ML VIAL SC SCH ×2 (09:00→21:00)
[2016-05-12 10:45] LABS: ADD SCAN DIFF NO
[2016-05-12 10:56] LABS: BASOPHILS % 0.1 % (0.0-2.0); EOSINOPHILS # 0.1 10^3/ul (0.0-0.5); EOSINOPHILS % 0.8 % (0.0-7.0); HEMATOCRIT 33.5 % (42.0-52.0); HEMOGLOBIN 10.3 g/dl (14.0-18.0); LYMPHOCYTES # 2.3 10^3/ul (0.8-2.9); LYMPHOCYTES % 21.7 % (15.0-51.0); MEAN CORPUSCULAR HEMOGLOBIN 25.4 pg (29.0-33.0); MEAN CORPUSCULAR HGB CONC 30.7 g/dl (32.0-37.0); MEAN CORPUSCULAR VOLUME 82.7 fl (82.0-101.0); MONOCYTE # 0.9 10^3/ul (0.3-0.9); MONOCYTES % 8.9 % (0.0-11.0); NEUTROPHIL # 7.1 10^3/ul (1.6-7.5); PLATELET COUNT 420 10^3/UL (140-415); RED BLOOD COUNT 4.05 10^6/ul (4.70-6.10); RED CELL DISTRIBUTION WIDTH 16.7 % (11.5-14.5); WHITE BLOOD COUNT 10.4 10^3/ul (4.8-10.8)
[2016-05-12 11:09] LABS: POTASSIUM 4.1 mmol/L (3.5-5.1)
[2016-05-12 11:11] LABS: CREATININE 1.19 mg/dl (0.61-1.24); PHOSPHORUS 3.5 mg/dl (2.5-4.9)
[2016-05-12 11:12] LABS: CALCIUM 9.7 mg/dl (8.4-10.2)
--- NOTE | 2016-05-12 14:58 | CONS ---
Date/Time of Note Date/Time of Note DATE: 05/12/16 TIME: 14:56 Assessment/Plan Assessment/Plan Chief Complaint/Hosp Course SUBJECTIVE: No events overnight. The patient is awake, lying comfortably in bed. Denies pain. No fevers. MICROBIOLOGY: Urine culture growing E. coli ESBL. Bilateral wound cultures of buttocks growing E coli ESBL. ANTIMICROBIALS: The patient is on Imipenem, day #3. PHYSICAL EXAMINATION: GENERAL: Well-developed, elderly, -[place] man, who is alert, in no distress. HEENT: Head atraumatic, normocephalic. Sclerae anicteric. Buccal mucosa dry. NECK: Supple. CHEST: Chest rise is symmetrical. Breath sounds clear. HEART: S1, S2. ABDOMEN: Soft, bowel tones present. EXTREMITIES: Without cyanosis. ASSESSMENT: 1. Acute pyelonephritis with Escherichia coli extended-spectrum beta-lactamase urinary tract infection. 2. Urinary retention, status post Blackmon catheter. 3. Hyperlipidemia. 4. Hypothyroidism. PLAN: The patient remains stable, on appropriate antimicrobials, which we are going to continue. Urology on the case. DW staff Problems: Consultation Date/Type/Reason Admit Date/Time May 09, 2016 at 19:32 Initial Consult Date Type of Consultation: ID Exam/Review of Systems Vital Signs Vitals Vital Signs Date Time Temp Pulse Resp B/P Pulse Ox O2 Delivery O2 Flow Rate FiO2 05/12/16 07:00 97.8 96 20 91/52 98 05/10/16 21:00 Room Air Intake and Output 05/11/16 05/11/16 05/12/16 15:00 23:00 07:00 Intake Total 700 ml 920 ml 520 ml Output Total 1400 ml 250 ml Balance 700 ml -480 ml 270 ml Results Result Diagram: 05/12/16 1007 05/12/16 1007 Results 24 hrs Laboratory Tests Test 05/12/16 10:07 White Blood Count 10.4 Red Blood Count 4.05 L Hemoglobin 10.3 L Hematocrit 33.5 L Mean Corpuscular Volume 82.7 Mean Corpuscular Hemoglobin 25.4 L Mean Corpuscular Hemoglobin Concent 30.7 L Red Cell Distribution Width 16.7 H Platelet Count 420 #H Mean Platelet Volume 10.0 Neutrophils % 68.0 Lymphocytes % 21.7 Monocytes % 8.9 Eosinophils % 0.8 Basophils % 0.1 Nucleated Red Blood Cells % 0.0 Neutrophils # 7.1 Lymphocytes # 2.3 Monocytes # 0.9 Eosinophils # 0.1 Basophils # 0.0 Nucleated Red Blood Cells # 0.0 Sodium Level 143 Potassium Level 4.1 Chloride Level 107 Carbon Dioxide Level 27 Anion Gap 13 Blood Urea Nitrogen 15 Creatinine 1.19 Glucose Level 111 Calcium Level 9.7 Phosphorus Level 3.5 Magnesium Level 2.0 Medications Medications Current Medications Guaifenesin/ Codeine Phosphate (Robitussin Ac Liquid Cup) 5 ml Q4H PRN PO cough ; Start 05/09/16 at 22:30 Ondansetron HCl (Zofran Inj) 4 mg Q6H PRN IV NAUSEA AND/OR VOMITING; Start at 23:30 Acetaminophen (Tylenol Tab) 650 mg Q6H PRN PO PAIN LEVEL 1-3 OR FEVER; Start at 23:30 Acetaminophen/ Hydrocodone Bitart ([place] (5/325)) 1 tab Q6H PRN PO MODERATE PAIN LEVEL 4-6; Start 05/09/16 at 23:30 Morphine Sulfate (morphine) 2 mg Q4H PRN IV SEVERE PAIN LEVEL 7-10 Last administered on 05/10/16 02:45; Admin Dose 2 MG; Start 05/09/16 at 23:30 Docusate Sodium (Colace) 100 mg Q12H PRN PO CONSTIPATION; Start 05/09/16 at 23: 30 Magnesium Hydroxide (Milk Of Mag) 30 ml DAILY PRN PO CONSTIPATION; Start at 23:30 Zolpidem Tartrate (Ambien) 5 mg QHS PRN PO SLEEP; Start 05/09/16 at 23:30 Pantoprazole (Protonix Tab) 40 mg DAILY@06 PO Last administered on 05/12/16 06 :26; Admin Dose 40 MG; Start 05/10/16 at 06:00 Heparin Sodium (Porcine) 5000 unit 5,000 unit Q12 SC Last administered on 09:07; Admin Dose 5,000 UNIT; Start 05/10/16 at 09:00 Imipenem/ Cilastatin Sodium (Primaxin 500 Mg/ 100 ml (Pmx)) 100 ml @ 100 mls/ hr Q8 IV Last administered on 05/12/16 06:26; Admin Dose 100 MLS/HR; Start at 06:00 Divalproex Sodium (Depakote) 500 mg BID PO Last administered on 05/12/16 08:12 ; Admin Dose 500 MG; Start 05/10/16 at 09:00 Olanzapine (Zyprexa) 5 mg BID PO Last administered on 05/12/16 08:12; Admin Dose 5 MG; Start 05/10/16 at 09:00 Tamsulosin HCl (Flomax) 0.4 mg HS PO Last administered on 05/11/16 20:57; Admin Dose 0.4 MG; Start 05/10/16 at 21:00 KAITLIN CARLOS NP May 12, 2016 14:58
--- NOTE | 2016-05-12 15:55 | PN ---
DATE: 05/12/2016 SUBJECTIVE: The patient seen, unfortunately Blackmon was removed this morning and patient is having di fficulty voiding. Blackmon to be reinserted by Dr. Espinoza. Case discussed with director case management garth clark. The patient's cultures from the perirectal abscesses and urine culture all show ESBL E scherichia coli sensitive to imipenem. PHYSICAL EXAMINATION: VITAL SIGNS: Temperature 97.8, pulse 96, respirations 20, blood pressure 91/52, saturation 98% on r oom air. GENERAL: The patient is in no acute distress. The patient is pale. CARDIOVASCULAR: S1 and S2, regular rate. LUNGS: Clear. ABDOMEN: Soft, nontender. EXTREMITIES: No clubbing, cyanosis, or edema. LABORATORIES: White count is 10.4, normal hemoglobin 10.3, hematocrit 34, platelet count 420, neutr ophils 68%, lymphocytes 22%. Chemistry: Sodium 143, potassium 4.1, chloride 107, bicarbonate 27, B UN is 15, creatinine 1.19, glucose of 111. Again, all cultures showed ESBL Escherichia coli, both i n the urine and wound. MEDICATIONS: 1. Synthroid 125 mcg daily. 2. Flomax 0.4 at bedtime. 3. Heparin 5000 q.12h. 4. Depakote 500 b.i.d. 5. Zyprexa 5 b.i.d. 6. Protonix 40 mg daily. 7. Imipenem 500 IV q.8h. 8. Zofran p.r.n. 9. Tylenol p.r.n. 10. [place] p.r.n. 11. Morphine p.r.n. 12. Colace p.r.n. 13. Milk of magnesia p.r.n. 14. Ambien. 15. Robitussin with codeine p.r.n. ASSESSMENT AND PLAN: This is a 70-year-old -Chinese man with history of psychiatric disorde r, urinary retention, BPH, multiple perirectal microabscesses, anemia, COPD, who presented with pyel onephritis, UTI, early sepsis, and multiple infected draining perirectal abscesses. 1. Pyelonephritis with urinary retention. Blackmon to be replaced back in. In the meantime, he will need a Blackmon catheter upon discharge. 2. Perirectal abscesses infected. Continue imipenem. Outpatient followup at [facility] with colorectal s urgeon. 3. Hypothyroidism. Continue Synthroid 125 mcg daily. Followup TSH in a few weeks. 4. Acute renal failure, back to baseline. Observe. Encourage hydration. 5. Anemia. H and H remain stable. Currently no need for transfusion. Observe. 6. Psychiatric disorder. Continue Depakote and Zyprexa. 7. Continue deep vein thrombosis prophylaxis and gastrointestinal prophylaxis. 8. Appreciate GI input. Sometimes perirectal abscess may be a sign of GI problems such as Crohn's disease, etc. Flagyl was recommended to be added per Dr. [place]. We will follow. principal product manager to assist with placement. Dictated By: CHRISTINE MALDONADO/ROLANDO Conf#: [id number] DID#: [id number]
[2016-05-12] MEDS: metroNIDAZOLE 500 MG TAB PO SCH ×2 (16:29→21:16)
[2016-05-12 19:15] VITALS: BP 98/52; RESP 16
--- NOTE | 2016-05-12 19:16 | CONS ---
Date/Time of Note Date/Time of Note DATE: 05/12/16 TIME: 19:15 Assessment/Plan Assessment/Plan Additional Assessment/Plan IMPRESSION: 1. Multiple perirectal abscesses. 2. Pyelonephritis. 3. Urinary retention. 4. Psychiatric disorder. 5. Chronic obstructive pulmonary disease. 6. Hypothyroidism. 7. Anemia. Plan Continue present care Patient declined rectal examination. If he agrees we will proceed with colonoscopy to rule out IBD. Other costa I will send IBD serology and stool for calprotectin. Consultation Date/Type/Reason Admit Date/Time May 09, 2016 at 19:32 Initial Consult Date Type of Consultation: ID [id number] HR Interval Summary Free Text/Dictation Patient states his rectal pain and abscess improves with Jacuzzi Constitutional: improved, no complaints Exam/Review of Systems Vital Signs Vitals Vital Signs Date Time Temp Pulse Resp B/P Pulse Ox O2 Delivery O2 Flow Rate FiO2 05/12/16 07:00 97.8 96 20 91/52 98 05/10/16 21:00 Room Air Intake and Output 05/11/16 05/11/16 05/12/16 15:00 23:00 07:00 Intake Total 700 ml 920 ml 520 ml Output Total 1400 ml 250 ml Balance 700 ml -480 ml 270 ml Exam Constitutional: alert, oriented, well developed Psych: nl mood/affect, no complaints Head: atraumatic, normocephalic Eyes: EOMI, PERRL, nl conjunctiva, nl lids, nl sclera ENMT: nl external ears & nose, nl lips & teeth, nl nasal mucosa & septum Neck: non-tender, supple Respiratory: clear to auscultation, normal air movement Cardiovascular: nl pulses, regular rate and rhythm Gastrointestinal: nl liver, spleen, non-tender, soft Musculoskeletal: nl extremities to inspection, nl gait and stance Extremities: normal pulses Neurological: BUILDING CARPENTER II-XII intact, nl mental status, nl speech, nl strength Skin: nl turgor, No rash or lesions Lymph: nl lymph nodes Results Result Diagram: 05/12/16 1007 05/12/16 1007 Results 24 hrs Laboratory Tests Test 05/12/16 10:07 White Blood Count 10.4 Red Blood Count 4.05 L Hemoglobin 10.3 L Hematocrit 33.5 L Mean Corpuscular Volume 82.7 Mean Corpuscular Hemoglobin 25.4 L Mean Corpuscular Hemoglobin Concent 30.7 L Red Cell Distribution Width 16.7 H Platelet Count 420 #H Mean Platelet Volume 10.0 Neutrophils % 68.0 Lymphocytes % 21.7 Monocytes % 8.9 Eosinophils % 0.8 Basophils % 0.1 Nucleated Red Blood Cells % 0.0 Neutrophils # 7.1 Lymphocytes # 2.3 Monocytes # 0.9 Eosinophils # 0.1 Basophils # 0.0 Nucleated Red Blood Cells # 0.0 Sodium Level 143 Potassium Level 4.1 Chloride Level 107 Carbon Dioxide Level 27 Anion Gap 13 Blood Urea Nitrogen 15 Creatinine 1.19 Glucose Level 111 Calcium Level 9.7 Phosphorus Level 3.5 Magnesium Level 2.0 Medications Medications Current Medications Guaifenesin/ Codeine Phosphate (Robitussin Ac Liquid Cup) 5 ml Q4H PRN PO cough ; Start 05/09/16 at 22:30 Ondansetron HCl (Zofran Inj) 4 mg Q6H PRN IV NAUSEA AND/OR VOMITING; Start at 23:30 Acetaminophen (Tylenol Tab) 650 mg Q6H PRN PO PAIN LEVEL 1-3 OR FEVER; Start at 23:30 Acetaminophen/ Hydrocodone Bitart ([place] (5/325)) 1 tab Q6H PRN PO MODERATE PAIN LEVEL 4-6; Start 05/09/16 at 23:30 Morphine Sulfate (morphine) 2 mg Q4H PRN IV SEVERE PAIN LEVEL 7-10 Last administered on 05/10/16 02:45; Admin Dose 2 MG; Start 05/09/16 at 23:30 Docusate Sodium (Colace) 100 mg Q12H PRN PO CONSTIPATION; Start 05/09/16 at 23: 30 Magnesium Hydroxide (Milk Of Mag) 30 ml DAILY PRN PO CONSTIPATION; Start at 23:30 Zolpidem Tartrate (Ambien) 5 mg QHS PRN PO SLEEP; Start 05/09/16 at 23:30 Pantoprazole (Protonix Tab) 40 mg DAILY@06 PO Last administered on 05/12/16 06 :26; Admin Dose 40 MG; Start 05/10/16 at 06:00 Heparin Sodium (Porcine) 5000 unit 5,000 unit Q12 SC Last administered on 09:07; Admin Dose 5,000 UNIT; Start 05/10/16 at 09:00 Imipenem/ Cilastatin Sodium (Primaxin 500 Mg/ 100 ml (Pmx)) 100 ml @ 100 mls/ hr Q8 IV Last administered on 05/12/16 15:32; Admin Dose 100 MLS/HR; Start at 06:00 Divalproex Sodium (Depakote) 500 mg BID PO Last administered on 05/12/16 08:12 ; Admin Dose 500 MG; Start 05/10/16 at 09:00 Olanzapine (Zyprexa) 5 mg BID PO Last administered on 05/12/16 08:12; Admin Dose 5 MG; Start 05/10/16 at 09:00 Tamsulosin HCl (Flomax) 0.4 mg HS PO Last administered on 05/11/16 20:57; Admin Dose 0.4 MG; Start 05/10/16 at 21:00 Metronidazole (Flagyl) 500 mg Q8 PO Last administered on 05/12/16 16:29; Admin Dose 500 MG; Start 05/12/16 at 15:30 KEELEY GUERRA MD May 12, 2016 19:16
[2016-05-12] MEDS: TAMSULOSIN (SR) 0.4 MG CAP PO SCH (21:17)
[2016-05-13] MEDS: HYDROCODONE/APAP (5/325) TAB PO PRN (04:47)
[2016-05-13] MEDS: IMIPENEM-CILAST 500MG IV (PMX) 100 ML IV SCH ×3 (06:20→21:47)
[2016-05-13] MEDS: PANTOPRAZOLE (EC) 40 MG TAB PO SCH (06:20)
[2016-05-13] MEDS: LEVOTHYROXINE 125 MCG TAB PO SCH (06:20)
[2016-05-13] MEDS: metroNIDAZOLE 500 MG TAB PO SCH ×3 (06:46→21:47)
--- NOTE | 2016-05-13 07:50 | PN ---
DATE: 05/12/2016 SUBJECTIVE: Urinary retention. The patient had an indwelling Blackmon catheter that was removed this morning; however, patient urinated once around 9 a.m. 100 mL. His postvoid residual then was 97; ho wever, he has not voided since after that. His is comfortable. He does not feel the urge to urinat e. However, the bladder scan showed that he has over 400 mL; in fact about 500 mL of urine. OBJECTIVE VITAL SIGNS: His temperature is 98.0. Pulse is 73, respirations 16, and blood pressure is 98/52. ABDOMEN: Soft. Bladder was distended The nurse had tried to catheterize, do an in and out cath on him and met some resistance and was not be able to catheterize him or even insert the Blackmon. So, they called me back. I have seen the pat dmfrandy earlier in the day, but then I had to come back around 2:33 p.m. Then I did insert a 16-Georgian coude catheter. A regular 16 catheter would not go in and I had to insert a 16-Georgian coude cathete r and that drained the urine well and 497 mL drained. LABORATORY DATA: CBC shows a white count of 10.4, hemoglobin 10.3, hematocrit 33.5, platelet count 420,000. BUN is 15, creatinine 1.19, sodium 143, potassium 4.1, chloride 107, CO2 of 27. Urine cul ture again is showing less than 10,000 colonies per mL of E. coli ESBL. PLAN: To keep the Blackmon catheter in. He is already on Primaxin and continue that. He is also on t amsulosin. We shall continue that in case we have to try again to remove the catheter and see if he voids. Dictated By: UCHE MCCABE/ROLANDO Conf#: [id number] DID#: [id number]
[2016-05-13 08:07] VITALS: BP 96/52; RESP 20
[2016-05-13] MEDS: DIVALPROEX (EC) 500 MG TAB PO SCH ×2 (08:34→21:48)
[2016-05-13] MEDS: OLANZAPINE 5 MG TAB PO SCH ×2 (08:34→21:47)
[2016-05-13] MEDS: HEPARIN 5,000 UNIT/0.5 ML VIAL SC SCH (08:34)
--- NOTE | 2016-05-13 16:03 | PN ---
DATE: 05/13/2016 The patient is status post Blackmon placement, as the patient had urinary retention after attempt to re move the Blackmon. The patient is resting comfortably at bedside. No acute events overnight. PHYSICAL EXAMINATION: VITAL SIGNS: Temperature is 98.4, pulse ox 65, respirations 20, blood pressure 96/52, saturations 9 7%. GENERAL: The patient in no acute distress. The patient is pale. CARDIOVASCULAR: S1, S2, regular rate. LUNGS: Clear. ABDOMEN: Soft, nontender. EXTREMITIES: No clubbing, cyanosis, or edema. GENITOURINARY: Blackmon to gravity has multiple perirectal abscesses. LABORATORY: No new labs today. Labs yesterday were reviewed. White count was 10.4, hemoglobin was 10.3. Basic metabolic panel was normal. All cultures, including wound, and urine cultures all nj w ESBL Escherichia coli sensitive to the current antibiotics with imipenem. CURRENT MEDICATIONS: Include: 1. Flagyl 500 q. 8h. 2. Synthroid 125 mcg daily. 3. Flomax 0.4 at bedtime. 4. Heparin 5000 subcutaneous q.12. 5. Patient refused Depakote 500 b.i.d. 6. Zyprexa 5 mg b.i.d. 7. Protonix 40 mg daily. 8. Imipenem 500 q.8. 9. Zofran p.r.n. 10. Tylenol p.r.n. 11. [place] p.r.n. 12. Morphine p.r.n. 13. Colace p.r.n. 14. Milk of Magnesia p.r.n. 15. Ambien p.r.n. 16. Robitussin p.r.n. ASSESSMENT AND PLAN: This is a 70-year-old -Finnish male with a history of psychiatric diso rder, urinary retention, BPH, multiple terence-rectal microabscesses, anemia, and COPD, who presented w ith pyelonephritis, UTI, early sepsis and multiple infected terence-rectal abscesses. 1. Pyelonephritis with urinary retention. Blackmon is back in place. Continue imipenem. Continue Fl omax. 2. Perirectal abscesses, infected. Continue imipenem. Follow up with the colorectal surgeon at [facility]. 3. Hypothyroidism. Continue Synthroid. Follow up TSH. I did reduce the patient's Synthroid dose, as the patient had a low TSH. 4. Acute renal failure. Resolved. Observe. 5. Anemia. H and H remain stable. No need for transfusion. 6. Psychiatric disorder. Continue Depakote and Zyprexa. 7. Patient refusing heparin, so maybe will try oral Xarelto for DVT prophylaxis. 8. Appreciate GI's input, who recommended to add Flagyl to his antibiotic regimen. 9. Awaiting placement to a [facility] facility, as the patient needs a lot of care. Physical therapy as well will be consulted for strengthening and to monitor his gait. We will follow. Dictated By: CHRISTINE MALDONADO/ROLANDO Conf#: [id number] DID#: [id number]
[2016-05-13] MEDS: RIVAROXABAN 10 MG TABLET PO SCH (18:12)
--- NOTE | 2016-05-13 19:35 | CONS ---
Date/Time of Note Date/Time of Note DATE: 05/13/16 TIME: 19:34 Assessment/Plan Assessment/Plan Chief Complaint/Hosp Course SUBJECTIVE: No events overnight. No fevers. MICROBIOLOGY: Urine culture growing E. coli ESBL. Bilateral wound cultures of buttocks growing E coli ESBL. ANTIMICROBIALS: The patient is on Imipenem, day #4. PHYSICAL EXAMINATION: GENERAL: Well-developed, elderly, -Fijian man, who is alert, in no distress. HEENT: Head atraumatic, normocephalic. Sclerae anicteric. Buccal mucosa dry. NECK: Supple. CHEST: Chest rise is symmetrical. Breath sounds clear. HEART: S1, S2. ABDOMEN: Soft, bowel tones present. EXTREMITIES: Without cyanosis. ASSESSMENT: 1. Acute pyelonephritis with Escherichia coli extended-spectrum beta-lactamase urinary tract infection. 2. Urinary retention, status post Blackmon catheter. 3. Hyperlipidemia. 4. Hypothyroidism. PLAN: The patient remains stable, on appropriate antimicrobials, which we are going to continue for total of 2 weeks. Urology on the case. [facility] staff Problems: Consultation Date/Type/Reason Admit Date/Time May 09, 2016 at 19:32 Type of Consultation: ID Exam/Review of Systems Vital Signs Vitals Vital Signs Date Time Temp Pulse Resp B/P Pulse Ox O2 Delivery O2 Flow Rate FiO2 05/13/16 08:07 98.4 65 20 96/52 97 05/10/16 21:00 Room Air Intake and Output 05/12/16 05/12/16 05/13/16 15:00 23:00 07:00 Intake Total 100 ml 400 ml Output Total 100 ml 1900 ml Balance -100 ml 100 ml -1500 ml Results Result Diagram: 05/12/16 1007 05/12/16 1007 Medications Medications Current Medications Guaifenesin/ Codeine Phosphate (Robitussin Ac Liquid Cup) 5 ml Q4H PRN PO cough ; Start 05/09/16 at 22:30 Ondansetron HCl (Zofran Inj) 4 mg Q6H PRN IV NAUSEA AND/OR VOMITING; Start at 23:30 Acetaminophen (Tylenol Tab) 650 mg Q6H PRN PO PAIN LEVEL 1-3 OR FEVER; Start at 23:30 Acetaminophen/ Hydrocodone Bitart ([place] (5/325)) 1 tab Q6H PRN PO MODERATE PAIN LEVEL 4-6 Last administered on 05/13/16 04:47; Admin Dose 1 TAB; Start at 23:30 Morphine Sulfate (morphine) 2 mg Q4H PRN IV SEVERE PAIN LEVEL 7-10 Last administered on 05/10/16 02:45; Admin Dose 2 MG; Start 05/09/16 at 23:30 Docusate Sodium (Colace) 100 mg Q12H PRN PO CONSTIPATION; Start 05/09/16 at 23: 30 Magnesium Hydroxide (Milk Of Mag) 30 ml DAILY PRN PO CONSTIPATION; Start at 23:30 Zolpidem Tartrate (Ambien) 5 mg QHS PRN PO SLEEP; Start 05/09/16 at 23:30 Pantoprazole 40 mg 40 mg DAILY@06 PO Last administered on 05/13/16 06:20; Admin Dose 40 MG; Start 05/10/16 at 06:00 Imipenem/ Cilastatin Sodium (Primaxin 500 Mg/ 100 ml (Pmx)) 100 ml @ 100 mls/ hr Q8 IV Last administered on 05/13/16 14:14; Admin Dose 100 MLS/HR; Start at 06:00 Divalproex Sodium (Depakote) 500 mg BID PO Last administered on 05/13/16 08:34 ; Admin Dose 500 MG; Start 05/10/16 at 09:00 Olanzapine (Zyprexa) 5 mg BID PO Last administered on 05/13/16 08:34; Admin Dose 5 MG; Start 05/10/16 at 09:00 Tamsulosin HCl (Flomax) 0.4 mg HS PO Last administered on 05/12/16 21:17; Admin Dose 0.4 MG; Start 05/10/16 at 21:00 Metronidazole (Flagyl) 500 mg Q8 PO Last administered on 05/13/16 14:14; Admin Dose 500 MG; Start 05/12/16 at 15:30 KAITLIN CARLOS NP May 13, 2016 19:35
--- NOTE | 2016-05-13 20:00 | CONS ---
Date/Time of Note Date/Time of Note DATE: 05/13/16 TIME: 19:59 Assessment/Plan Assessment/Plan Additional Assessment/Plan IMPRESSION: 1. Multiple perirectal abscesses. 2. Pyelonephritis. 3. Urinary retention. 4. Psychiatric disorder. 5. Chronic obstructive pulmonary disease. 6. Hypothyroidism. 7. Anemia. Plan Continue present care Patient declined rectal examination. If he agrees we will proceed with colonoscopy to rule out IBD. Other costa I will send IBD serology and stool for calprotectin. Consultation Date/Type/Reason Admit Date/Time May 09, 2016 at 19:32 Type of Consultation: ID [id number] HR Interval Summary Constitutional: improved, no complaints Exam/Review of Systems Vital Signs Vitals Vital Signs Date Time Temp Pulse Resp B/P Pulse Ox O2 Delivery O2 Flow Rate FiO2 05/13/16 08:07 98.4 65 20 96/52 97 05/10/16 21:00 Room Air Intake and Output 05/12/16 05/12/16 05/13/16 15:00 23:00 07:00 Intake Total 100 ml 400 ml Output Total 100 ml 1900 ml Balance -100 ml 100 ml -1500 ml Exam Constitutional: alert, oriented, well developed Psych: nl mood/affect, no complaints Head: atraumatic, normocephalic Eyes: EOMI, PERRL, nl conjunctiva, nl lids, nl sclera ENMT: nl external ears & nose, nl lips & teeth, nl nasal mucosa & septum Neck: non-tender, supple Respiratory: clear to auscultation, normal air movement Cardiovascular: nl pulses, regular rate and rhythm Gastrointestinal: nl liver, spleen, non-tender, soft Musculoskeletal: nl extremities to inspection, nl gait and stance Extremities: normal pulses 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, nl mental status, nl speech, nl strength Skin: nl turgor, No rash or lesions Lymph: nl lymph nodes Results Result Diagram: 05/12/16 1007 05/12/16 1007 Medications Medications Current Medications Guaifenesin/ Codeine Phosphate (Robitussin Ac Liquid Cup) 5 ml Q4H PRN PO cough ; Start 05/09/16 at 22:30 Ondansetron HCl (Zofran Inj) 4 mg Q6H PRN IV NAUSEA AND/OR VOMITING; Start at 23:30 Acetaminophen (Tylenol Tab) 650 mg Q6H PRN PO PAIN LEVEL 1-3 OR FEVER; Start at 23:30 Acetaminophen/ Hydrocodone Bitart ([place] (5/325)) 1 tab Q6H PRN PO MODERATE PAIN LEVEL 4-6 Last administered on 05/13/16 04:47; Admin Dose 1 TAB; Start at 23:30 Morphine Sulfate (morphine) 2 mg Q4H PRN IV SEVERE PAIN LEVEL 7-10 Last administered on 05/10/16 02:45; Admin Dose 2 MG; Start 05/09/16 at 23:30 Docusate Sodium (Colace) 100 mg Q12H PRN PO CONSTIPATION; Start 05/09/16 at 23: 30 Magnesium Hydroxide (Milk Of Mag) 30 ml DAILY PRN PO CONSTIPATION; Start at 23:30 Zolpidem Tartrate (Ambien) 5 mg QHS PRN PO SLEEP; Start 05/09/16 at 23:30 Pantoprazole 40 mg 40 mg DAILY@06 PO Last administered on 05/13/16 06:20; Admin Dose 40 MG; Start 05/10/16 at 06:00 Imipenem/ Cilastatin Sodium (Primaxin 500 Mg/ 100 ml (Pmx)) 100 ml @ 100 mls/ hr Q8 IV Last administered on 05/13/16 14:14; Admin Dose 100 MLS/HR; Start at 06:00 Divalproex Sodium (Depakote) 500 mg BID PO Last administered on 05/13/16 08:34 ; Admin Dose 500 MG; Start 05/10/16 at 09:00 Olanzapine (Zyprexa) 5 mg BID PO Last administered on 05/13/16 08:34; Admin Dose 5 MG; Start 05/10/16 at 09:00 Tamsulosin HCl (Flomax) 0.4 mg HS PO Last administered on 05/12/16 21:17; Admin Dose 0.4 MG; Start 05/10/16 at 21:00 Metronidazole (Flagyl) 500 mg Q8 PO Last administered on 05/13/16 14:14; Admin Dose 500 MG; Start 05/12/16 at 15:30 KEELEY GUERRA MD May 13, 2016 20:00
[2016-05-13 20:09] VITALS: BP 106/55; RESP 20
[2016-05-13] MEDS: TAMSULOSIN (SR) 0.4 MG CAP PO SCH (21:47)
--- NOTE | 2016-05-14 02:40 | PN ---
DATE: 05/13/2016 SUBJECTIVE: Urinary retention. Patient unable to urinate on his own and had some hematuria yesterd ay after the nurse tried to catheterize him, so I had to put a Blackmon catheter for him myself and the patient now is comfortable. SOCIAL HISTORY: He states that he is happy that his nephew from [place] came and visited him. PHYSICAL EXAMINATION: VITAL SIGNS: Temperature is 98.4. The blood pressure 96/52. The pulse is 65, respiration 20. ABDOMEN: Soft. Blackmon catheter is draining clear urine. Urine culture showing E. coli ESBL. IMPRESSION: Urinary retention and urinary tract infection. PLAN: To keep the Blackmon catheter in and continue his antibiotic. Dictated By: UCHE MCCABE/ROLANDO Conf#: [id number] DID#: [id number]
[2016-05-14] MEDS: metroNIDAZOLE 500 MG TAB PO SCH ×3 (06:11→21:26)
[2016-05-14] MEDS: IMIPENEM-CILAST 500MG IV (PMX) 100 ML IV SCH ×3 (06:11→21:26)
[2016-05-14] MEDS: LEVOTHYROXINE 125 MCG TAB PO SCH (06:11)
[2016-05-14] MEDS: PANTOPRAZOLE (EC) 40 MG TAB PO SCH (06:11)
[2016-05-14 06:23] LABS: ADD SCAN DIFF NO
[2016-05-14 06:40] LABS: BASOPHILS % 0.2 % (0.0-2.0); EOSINOPHILS # 0.3 10^3/ul (0.0-0.5); EOSINOPHILS % 3.1 % (0.0-7.0); HEMATOCRIT 32.3 % (42.0-52.0); HEMOGLOBIN 9.5 g/dl (14.0-18.0); LYMPHOCYTES # 1.8 10^3/ul (0.8-2.9); LYMPHOCYTES % 22.4 % (15.0-51.0); MEAN CORPUSCULAR HEMOGLOBIN 24.5 pg (29.0-33.0); MEAN CORPUSCULAR HGB CONC 29.4 g/dl (32.0-37.0); MEAN CORPUSCULAR VOLUME 83.5 fl (82.0-101.0); MEAN PLATELET VOLUME 9.9 fl (7.4-10.4); MONOCYTE # 0.7 10^3/ul (0.3-0.9); MONOCYTES % 8.8 % (0.0-11.0); NEUTROPHIL # 5.3 10^3/ul (1.6-7.5); NEUTROPHILS % 65.3 % (39.0-77.0); PLATELET COUNT 446 10^3/UL (140-415); RED BLOOD COUNT 3.87 10^6/ul (4.70-6.10); WHITE BLOOD COUNT 8.2 10^3/ul (4.8-10.8)
[2016-05-14 06:54] LABS: POTASSIUM 4.2 mmol/L (3.5-5.1)
[2016-05-14 06:57] LABS: CALCIUM 9.4 mg/dl (8.4-10.2); CREATININE 1.17 mg/dl (0.61-1.24)
[2016-05-14 07:45] LABS: MAGNESIUM 1.9 mg/dl (1.7-2.5); PHOSPHORUS 3.8 mg/dl (2.5-4.9)
[2016-05-14 08:23] VITALS: BP 99/57; RESP 18
[2016-05-14] MEDS: DIVALPROEX (EC) 500 MG TAB PO SCH ×2 (09:20→21:26)
[2016-05-14] MEDS: OLANZAPINE 5 MG TAB PO SCH ×2 (09:20→21:26)
--- NOTE | 2016-05-14 15:38 | PN ---
DATE: 05/14/2016 SUBJECTIVE: Urinary retention. The patient has an indwelling Blackmon catheter that is draining clear urine. He did have hematuria yesterday and that has cleared. The patient also does have a perirec jean-claude abscess and that is draining and has had a dressing covering it. OBJECTIVE VITAL SIGNS: His temperature is 97.8, blood pressure 99/57, pulse 69, respiration 18. ABDOMEN: Soft. The Blackmon catheter again is draining clear urine today. The urine culture shows he has ESBL UTI and he is on Primaxin. LABORATORY DATA: The CBC shows a white count of 8.2, hemoglobin 9.5, hematocrit 32.3. BUN is 16, c reatinine 1.17. Electrolytes are normal. IMPRESSION: Urinary retention. PLAN: Prior attempts to remove the Blackmon catheter to see if he does urinate on his own were not suc cessful. Therefore, we shall leave the Blackmon catheter in. Dictated By: UCHE MCCABE/ROLANDO Conf#: [id number] DID#: [id number]
--- NOTE | 2016-05-14 15:47 | PN ---
DATE: 05/14/2016 Patient seen resting in bed comfortably with no complaints. PHYSICAL EXAMINATION: VITAL SIGNS: Temperature 97.8, pulse 60, respirations 18, blood pressure 99/57, saturation is 97%. GENERAL: The patient is in no acute distress. The patient is pale. HEENT: Decreased dentition. CARDIOVASCULAR: S1, S2, regular rate. LUNGS: Clear. ABDOMEN: Soft, nontender. EXTREMITIES: No clubbing, cyanosis, or edema. LABORATORY DATA: Dated today, sodium is 142, potassium 4.2, chloride 104, bicarbonate 27, BUN 16, c reatinine 1.17, glucose of 98. White count 8.2, hemoglobin 9.5, hematocrit 32, platelet count of 44 6, neutrophils 65%, 22%. UA was positive on admission for ESBL E. coli and wound culture was also positive for ESBL E. coli sensitive to imipenem. CURRENT MEDICATIONS: Include: 1. Xarelto 10 mg with dinner for DVT prophylaxis as he refused heparin. 2. Flagyl 500 p.o. q. 8 hours. 3. Synthroid 125 mcg daily. 4. Flomax 0.5 at bedtime. 5. Depakote 500 b.i.d. 6. Zyprexa 5 mg b.i.d. 7. Protonix 40 mg daily. 8. Imipenem 500 IV q.8h. 9. Zofran p.r.n. 10. Tylenol p.r.n. 11. [place] p.r.n. 12. Morphine p.r.n. 13. Colace p.r.n. 14. Milk of magnesia p.r.n. 15. Ambien p.r.n. 16. Robitussin p.r.n. ASSESSMENT AND PLAN: This is a 70-year-old -Tuvaluan male with history of psychiatric disord er, urinary retention, BPH, multiple perirectal abscesses, anemia, COPD, presented with pyelonephrit is, UTI, early sepsis, multiple infected perirectal abscesses. 1. Pyelonephritis with urinary retention responding to antibiotic management. Will repeat UA and u rine culture. Blackmon to be kept as patient has urinary retention unfortunately. 2. Benign prostatic hypertrophy. Continue Flomax. Continue Blackmon for now, patient definitely will benefit from TURP. 3. Multiple perirectal abscesses. Will need to see a colorectal surgeon. Continue antibiotic greg gement for now. Continue wound care. 4. Hypothyroidism. Continue Synthroid. Dose was reduced. Follow up TSH level in a few weeks. 5. Acute renal failure, resolved. 6. Anemia. No need for transfusion. 7. Psychiatric disorder. Continue Depakote and Zyprexa. 8. Continue Xarelto for DVT prophylaxis. Continue Protonix for gastrointestinal prophylaxis. 9. Physical therapy to evaluate gait safety. 10. Awaiting placement to senior care facility. Dictated By: CHRISTINE MALDONADO/ROLANDO Conf#: [id number] DID#: [id number]
--- NOTE | 2016-05-14 16:47 | CONS ---
Date/Time of Note Date/Time of Note DATE: 05/14/16 TIME: 16:46 Assessment/Plan Assessment/Plan Additional Assessment/Plan Assessment/Plan Assessment/Plan Additional Assessment/Plan IMPRESSION: 1. Multiple perirectal abscesses. 2. Pyelonephritis. 3. Urinary retention. 4. Psychiatric disorder. 5. Chronic obstructive pulmonary disease. 6. Hypothyroidism. 7. Anemia. Plan Continue present care Patient declined rectal examination. IBD serology Consultation Date/Type/Reason Admit Date/Time May 09, 2016 at 19:32 Type of Consultation: ID [id number] HR Interval Summary Constitutional: improved, no complaints Exam/Review of Systems Vital Signs Vitals Vital Signs Date Time Temp Pulse Resp B/P Pulse Ox O2 Delivery O2 Flow Rate FiO2 05/14/16 08:23 97.8 69 18 99/57 97 05/10/16 21:00 Room Air Intake and Output 05/13/16 05/13/16 05/14/16 15:00 23:00 07:00 Intake Total 200 ml 100 ml 900 ml Output Total 750 ml Balance 200 ml 100 ml 150 ml Exam Constitutional: alert, oriented, well developed Psych: nl mood/affect, no complaints Head: atraumatic, normocephalic Eyes: EOMI, PERRL, nl conjunctiva, nl lids, nl sclera ENMT: nl external ears & nose, nl lips & teeth, nl nasal mucosa & septum Neck: non-tender, supple Respiratory: clear to auscultation, normal air movement Cardiovascular: nl pulses, regular rate and rhythm Gastrointestinal: nl liver, spleen, non-tender, soft Musculoskeletal: nl extremities to inspection, nl gait and stance Extremities: normal pulses 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, nl mental status, nl speech, nl strength Skin: nl turgor, No rash or lesions Lymph: nl lymph nodes Results Result Diagram: 05/14/16 0455 05/14/16 0455 Results 24 hrs Laboratory Tests Test 05/14/16 04:55 White Blood Count 8.2 # Red Blood Count 3.87 L Hemoglobin 9.5 L Hematocrit 32.3 L Mean Corpuscular Volume 83.5 Mean Corpuscular Hemoglobin 24.5 L Mean Corpuscular Hemoglobin Concent 29.4 L Red Cell Distribution Width 17.0 H Platelet Count 446 H Mean Platelet Volume 9.9 Neutrophils % 65.3 Lymphocytes % 22.4 Monocytes % 8.8 Eosinophils % 3.1 Basophils % 0.2 Nucleated Red Blood Cells % 0.0 Neutrophils # 5.3 Lymphocytes # 1.8 Monocytes # 0.7 Eosinophils # 0.3 Basophils # 0.0 Nucleated Red Blood Cells # 0.0 Sodium Level 142 Potassium Level 4.2 Chloride Level 104 Carbon Dioxide Level 27 Anion Gap 15 Blood Urea Nitrogen 16 Creatinine 1.17 Glucose Level 98 Calcium Level 9.4 Phosphorus Level 3.8 Magnesium Level 1.9 Medications Medications Current Medications Guaifenesin/ Codeine Phosphate (Robitussin Ac Liquid Cup) 5 ml Q4H PRN PO cough ; Start 05/09/16 at 22:30 Ondansetron HCl (Zofran Inj) 4 mg Q6H PRN IV NAUSEA AND/OR VOMITING; Start at 23:30 Acetaminophen (Tylenol Tab) 650 mg Q6H PRN PO PAIN LEVEL 1-3 OR FEVER; Start at 23:30 Acetaminophen/ Hydrocodone Bitart ([place] (5/325)) 1 tab Q6H PRN PO MODERATE PAIN LEVEL 4-6 Last administered on 05/13/16 04:47; Admin Dose 1 TAB; Start at 23:30 Morphine Sulfate (morphine) 2 mg Q4H PRN IV SEVERE PAIN LEVEL 7-10 Last administered on 05/10/16 02:45; Admin Dose 2 MG; Start 05/09/16 at 23:30 Docusate Sodium (Colace) 100 mg Q12H PRN PO CONSTIPATION; Start 05/09/16 at 23: 30 Magnesium Hydroxide (Milk Of Mag) 30 ml DAILY PRN PO CONSTIPATION; Start at 23:30 Zolpidem Tartrate (Ambien) 5 mg QHS PRN PO SLEEP; Start 05/09/16 at 23:30 Pantoprazole 40 mg 40 mg DAILY@06 PO Last administered on 05/14/16 06:11; Admin Dose 40 MG; Start 05/10/16 at 06:00 Imipenem/ Cilastatin Sodium (Primaxin 500 Mg/ 100 ml (Pmx)) 100 ml @ 100 mls/ hr Q8 IV Last administered on 05/14/16 14:48; Admin Dose 100 MLS/HR; Start at 06:00 Divalproex Sodium (Depakote) 500 mg BID PO Last administered on 05/14/16 09:20 ; Admin Dose 500 MG; Start 05/10/16 at 09:00 Olanzapine (Zyprexa) 5 mg BID PO Last administered on 05/14/16 09:20; Admin Dose 5 MG; Start 05/10/16 at 09:00 Tamsulosin HCl (Flomax) 0.4 mg HS PO Last administered on 05/13/16 21:47; Admin Dose 0.4 MG; Start 05/10/16 at 21:00 Metronidazole (Flagyl) 500 mg Q8 PO Last administered on 05/14/16 14:48; Admin Dose 500 MG; Start 05/12/16 at 15:30 KEELEY GUERRA MD May 14, 2016 16:47
[2016-05-14] MEDS: RIVAROXABAN 10 MG TABLET PO SCH (17:23)
--- NOTE | 2016-05-14 17:30 | CONS ---
Date/Time of Note Date/Time of Note DATE: 05/14/16 TIME: 17:29 Assessment/Plan Assessment/Plan Chief Complaint/Hosp Course SUBJECTIVE: No events overnight. No fevers. MICROBIOLOGY: Urine culture growing E. coli ESBL. Bilateral wound cultures of buttocks growing E coli ESBL. ANTIMICROBIALS: The patient is on Imipenem, day #5. PHYSICAL EXAMINATION: GENERAL: Well-developed, elderly, -Lao man, who is alert, in no distress. HEENT: Head atraumatic, normocephalic. Sclerae anicteric. Buccal mucosa dry. NECK: Supple. CHEST: Chest rise is symmetrical. Breath sounds clear. HEART: S1, S2. ABDOMEN: Soft, bowel tones present. EXTREMITIES: Without cyanosis. ASSESSMENT: 1. Acute pyelonephritis with Escherichia coli extended-spectrum beta-lactamase urinary tract infection. 2. Urinary retention, status post Blackmon catheter. 3. Hyperlipidemia. 4. Hypothyroidism. PLAN: The patient remains stable, continue abx for total of 2 weeks. F/u urology rec-s. [facility] staff Problems: Consultation Date/Type/Reason Admit Date/Time May 09, 2016 at 19:32 Type of Consultation: ID Exam/Review of Systems Vital Signs Vitals Vital Signs Date Time Temp Pulse Resp B/P Pulse Ox O2 Delivery O2 Flow Rate FiO2 05/14/16 08:23 97.8 69 18 99/57 97 05/10/16 21:00 Room Air Intake and Output 05/13/16 05/13/16 05/14/16 15:00 23:00 07:00 Intake Total 200 ml 100 ml 900 ml Output Total 750 ml Balance 200 ml 100 ml 150 ml Results Result Diagram: 05/14/16 0455 05/14/16 0455 Results 24 hrs Laboratory Tests Test 05/14/16 04:55 White Blood Count 8.2 # Red Blood Count 3.87 L Hemoglobin 9.5 L Hematocrit 32.3 L Mean Corpuscular Volume 83.5 Mean Corpuscular Hemoglobin 24.5 L Mean Corpuscular Hemoglobin Concent 29.4 L Red Cell Distribution Width 17.0 H Platelet Count 446 H Mean Platelet Volume 9.9 Neutrophils % 65.3 Lymphocytes % 22.4 Monocytes % 8.8 Eosinophils % 3.1 Basophils % 0.2 Nucleated Red Blood Cells % 0.0 Neutrophils # 5.3 Lymphocytes # 1.8 Monocytes # 0.7 Eosinophils # 0.3 Basophils # 0.0 Nucleated Red Blood Cells # 0.0 Sodium Level 142 Potassium Level 4.2 Chloride Level 104 Carbon Dioxide Level 27 Anion Gap 15 Blood Urea Nitrogen 16 Creatinine 1.17 Glucose Level 98 Calcium Level 9.4 Phosphorus Level 3.8 Magnesium Level 1.9 Medications Medications Current Medications Guaifenesin/ Codeine Phosphate (Robitussin Ac Liquid Cup) 5 ml Q4H PRN PO cough ; Start 05/09/16 at 22:30 Ondansetron HCl (Zofran Inj) 4 mg Q6H PRN IV NAUSEA AND/OR VOMITING; Start at 23:30 Acetaminophen (Tylenol Tab) 650 mg Q6H PRN PO PAIN LEVEL 1-3 OR FEVER; Start at 23:30 Acetaminophen/ Hydrocodone Bitart ([place] (5/325)) 1 tab Q6H PRN PO MODERATE PAIN LEVEL 4-6 Last administered on 05/13/16 04:47; Admin Dose 1 TAB; Start at 23:30 Morphine Sulfate (morphine) 2 mg Q4H PRN IV SEVERE PAIN LEVEL 7-10 Last administered on 05/10/16 02:45; Admin Dose 2 MG; Start 05/09/16 at 23:30 Docusate Sodium (Colace) 100 mg Q12H PRN PO CONSTIPATION; Start 05/09/16 at 23: 30 Magnesium Hydroxide (Milk Of Mag) 30 ml DAILY PRN PO CONSTIPATION; Start at 23:30 Zolpidem Tartrate (Ambien) 5 mg QHS PRN PO SLEEP; Start 05/09/16 at 23:30 Pantoprazole 40 mg 40 mg DAILY@06 PO Last administered on 05/14/16 06:11; Admin Dose 40 MG; Start 05/10/16 at 06:00 Imipenem/ Cilastatin Sodium (Primaxin 500 Mg/ 100 ml (Pmx)) 100 ml @ 100 mls/ hr Q8 IV Last administered on 05/14/16 14:48; Admin Dose 100 MLS/HR; Start at 06:00 Divalproex Sodium (Depakote) 500 mg BID PO Last administered on 05/14/16 09:20 ; Admin Dose 500 MG; Start 05/10/16 at 09:00 Olanzapine (Zyprexa) 5 mg BID PO Last administered on 05/14/16 09:20; Admin Dose 5 MG; Start 05/10/16 at 09:00 Tamsulosin HCl (Flomax) 0.4 mg HS PO Last administered on 05/13/16 21:47; Admin Dose 0.4 MG; Start 05/10/16 at 21:00 Metronidazole (Flagyl) 500 mg Q8 PO Last administered on 05/14/16 14:48; Admin Dose 500 MG; Start 05/12/16 at 15:30 KAITLIN CARLOS NP May 14, 2016 17:30
[2016-05-14 20:00] VITALS: BP 93/66; RESP 20
[2016-05-14] MEDS: TAMSULOSIN (SR) 0.4 MG CAP PO SCH (21:26)
[2016-05-15] MEDS: metroNIDAZOLE 500 MG TAB PO SCH ×3 (06:03→21:51)
[2016-05-15] MEDS: IMIPENEM-CILAST 500MG IV (PMX) 100 ML IV SCH ×2 (06:03→13:54)
[2016-05-15] MEDS: PANTOPRAZOLE (EC) 40 MG TAB PO SCH (06:03)
[2016-05-15] MEDS: LEVOTHYROXINE 125 MCG TAB PO SCH (06:06)
[2016-05-15 06:44] LABS: ADD UMIC YES; URINE BILIRUBIN (Dip) NEGATIVE (NEGATIVE); URINE BLOOD (Dip) NEGATIVE (NEGATIVE); URINE COLOR LT. YELLOW (YELLOW); URINE GLUCOSE (Dip) NEGATIVE (NEGATIVE); URINE KETONES (Dip) NEGATIVE (NEGATIVE); URINE LEUKOCYTE ESTERASE (Dip) 1+ (NEGATIVE); URINE NITRITE (Dip) NEGATIVE (NEGATIVE); URINE TOTAL PROTEIN (Dip) NEGATIVE (NEGATIVE); URINE UROBILINOGEN (Dip) 1.0 E.U./dL (0.1-1.0)
[2016-05-15 07:28] LABS: BACTERIA,URINE FEW; URINE RBCS 0-2 /HPF (0)
[2016-05-15 08:01] VITALS: BP 108/53; RESP 20
[2016-05-15] MEDS: DIVALPROEX (EC) 500 MG TAB PO SCH ×2 (08:45→21:51)
[2016-05-15] MEDS: OLANZAPINE 5 MG TAB PO SCH ×2 (08:45→21:51)
--- NOTE | 2016-05-15 13:58 | CONS ---
Date/Time of Note Date/Time of Note DATE: 05/15/16 TIME: 13:57 Assessment/Plan Assessment/Plan Chief Complaint/Hosp Course SUBJECTIVE: No events overnight. No fevers. Alert, feels good, no n/v/d MICROBIOLOGY: Urine culture growing E. coli ESBL. Bilateral wound cultures of buttocks growing E coli ESBL. ANTIMICROBIALS: Imipenem, day # 6 PHYSICAL EXAMINATION: GENERAL: Well-developed, elderly, -[place]ian man, who is alert, in no distress. HEENT: Head atraumatic, normocephalic. Sclerae anicteric. Buccal mucosa dry. NECK: Supple. CHEST: Chest rise is symmetrical. Breath sounds clear. HEART: S1, S2. ABDOMEN: Soft, bowel tones present. EXTREMITIES: Without cyanosis. ASSESSMENT: 1. Acute pyelonephritis with Escherichia coli extended-spectrum beta-lactamase urinary tract infection. 2. Urinary retention, status post Blackmon catheter. 3. Hyperlipidemia. 4. Hypothyroidism. PLAN: The patient remains stable, will change Merrem to Invanz, continue abx for total of 2 weeks. F/u urology rec-s. [facility] staff Problems: Consultation Date/Type/Reason Admit Date/Time May 09, 2016 at 19:32 Type of Consultation: ID Exam/Review of Systems Vital Signs Vitals Vital Signs Date Time Temp Pulse Resp B/P Pulse Ox O2 Delivery O2 Flow Rate FiO2 05/15/16 08:01 98.8 77 20 108/53 99 Intake and Output 05/14/16 05/14/16 05/15/16 15:00 23:00 07:00 Intake Total 1040 ml 120 ml Output Total 1200 ml 900 ml Balance -160 ml -780 ml Results Result Diagram: 05/14/16 0455 05/14/16 0455 Results 24 hrs Laboratory Tests Test 05/14/16 18:24 Urine Color LT. YELLOW Urine Clarity CLEAR Urine pH 7.5 Urine Specific [place] 1.010 Urine Ketones NEGATIVE Urine Nitrite NEGATIVE Urine Bilirubin NEGATIVE Urine Urobilinogen 1.0 E.U./dL Urine Leukocyte Esterase 1+ H Urine Microscopic RBC 0-2 Urine Microscopic WBC 10-25 Urine Epithelial Cells FEW Urine Bacteria FEW Urine Hemoglobin NEGATIVE Urine Glucose NEGATIVE Urine Total Protein NEGATIVE Medications Medications Current Medications Guaifenesin/ Codeine Phosphate (Robitussin Ac Liquid Cup) 5 ml Q4H PRN PO cough ; Start 05/09/16 at 22:30 Ondansetron HCl (Zofran Inj) 4 mg Q6H PRN IV NAUSEA AND/OR VOMITING; Start at 23:30 Acetaminophen (Tylenol Tab) 650 mg Q6H PRN PO PAIN LEVEL 1-3 OR FEVER; Start at 23:30 Acetaminophen/ Hydrocodone Bitart ([place] (5/325)) 1 tab Q6H PRN PO MODERATE PAIN LEVEL 4-6 Last administered on 05/13/16 04:47; Admin Dose 1 TAB; Start at 23:30 Morphine Sulfate (morphine) 2 mg Q4H PRN IV SEVERE PAIN LEVEL 7-10 Last administered on 05/10/16 02:45; Admin Dose 2 MG; Start 05/09/16 at 23:30 Docusate Sodium (Colace) 100 mg Q12H PRN PO CONSTIPATION; Start 05/09/16 at 23: 30 Magnesium Hydroxide (Milk Of Mag) 30 ml DAILY PRN PO CONSTIPATION; Start at 23:30 Zolpidem Tartrate (Ambien) 5 mg QHS PRN PO SLEEP; Start 05/09/16 at 23:30 Pantoprazole 40 mg 40 mg DAILY@06 PO Last administered on 05/15/16 06:03; Admin Dose 40 MG; Start 05/10/16 at 06:00 Imipenem/ Cilastatin Sodium (Primaxin 500 Mg/ 100 ml (Pmx)) 100 ml @ 100 mls/ hr Q8 IV Last administered on 05/15/16 13:54; Admin Dose 100 MLS/HR; Start at 06:00 Divalproex Sodium (Depakote) 500 mg BID PO Last administered on 05/15/16 08:45 ; Admin Dose 500 MG; Start 05/10/16 at 09:00 Olanzapine (Zyprexa) 5 mg BID PO Last administered on 05/15/16 08:45; Admin Dose 5 MG; Start 05/10/16 at 09:00 Tamsulosin HCl (Flomax) 0.4 mg HS PO Last administered on 05/14/16 21:26; Admin Dose 0.4 MG; Start 05/10/16 at 21:00 Metronidazole (Flagyl) 500 mg Q8 PO Last administered on 4/3/17at 13:54; Admin Dose 500 MG; Start 05/12/16 at 15:30 KAITLIN CARLOS NP May 15, 2016 13:58
[2016-05-15] MEDS: ERTAPENEM SODIUM 1 GM in SOD CHLORIDE 0.9% 100 ML IVPB SCH (15:30)
--- NOTE | 2016-05-15 17:07 | PN ---
DATE: 05/15/2016 The patient seen, unfortunately is refusing physical therapy. He thinks that sitz baths and warm ba th will cure his perirectal abscesses. Also his appetite is not very good. I did ask the surgical consultant Dr. Daniel Rvias to see him as well to make further recommendations regarding treatment plan of his perirectal abscesses. Noted wound care recommendations as discussed with the nursing s [facility]. PHYSICAL EXAMINATION: VITAL SIGNS: Temperature 98.8, pulse is 77, respirations 20, blood pressure 108/52, saturation 99%. GENERAL: The patient is in no acute distress. HEENT: Normocephalic, atraumatic. The patient is pale. CARDIOVASCULAR: S1 and S2. Regular rate. LUNGS: Clear. ABDOMEN: Soft, nontender. EXTREMITIES: No clubbing, cyanosis or edema. GENITOURINARY: Blackmon to gravity. LABORATORY DATA: Labs on 05/14 were all reviewed. Basic metabolic panel normal. Hemoglobin was lo w at 9.5 with platelet count trending up at 446. Repeat urinalysis did show +1 leukocyte esterase w ith WBCs only 10 to 25, so UA is better. MEDICATIONS: 1. Ertapenem 1 gram q.24 hours. 2. Xarelto 10 mg with dinner for DVT prophylaxis. He is mostly in bed. 3. Flagyl 500 q.8 hours. 4. Synthroid 125 mcg with breakfast. 5. Flomax 0.4 at bedtime. 6. Depakote 500 b.i.d. 7. Zyprexa 5 mg b.i.d. 8. Protonix 40 mg daily. 9. Zofran p.r.n. 10. Tylenol p.r.n. 11. [place] p.r.n. 12. Morphine p.r.n. 13. Colace p.r.n. 14. Milk of magnesia p.r.n. 15. Ambien p.r.n. 16. Robitussin p.r.n. ASSESSMENT AND PLAN: This is a 70-year-old male with history of psychiatric disord er, urinary retention, benign prostatic hypertrophy, multiple perirectal abscesses, anemia, chronic obstructive pulmonary disease who presented with pyelonephritis, urinary tract infection, early seps is, multiple infected perirectal abscesses. 1. Pyelonephritis with urinary retention. Blackmon to gravity. Currently on antibiotics. Urine does look better. We will follow. 2. Benign prostatic hypertrophy. Continue Flomax. Blackmon to gravity. The patient would likely akiko efit from TURP. He failed attempt to remove as he continues to have retention. 3. Multiple perirectal abscesses. I consulted the surgeon, Dr. Rivas. Will follow with his zachary mmendations. Continue wound care as recommended. Continue above antibiotics. 4. Hypothyroidism, on Synthroid. Follow up TSH in a few weeks. 5. Acute renal failure, resolved. 6. Psychiatric disorder, on Depakote and Zyprexa. 7. Generalized weakness, refusing physical therapy. 8. Continue Xarelto for DVT prophylaxis at 10 mg daily. 9. Continue Protonix for GI prophylaxis. 10. Placement at a senior living facility will be needed. business analyst manager is aware. We will follow . Dictated By: CHRISTINE MALDONADO/ROLANDO Conf#: [id number] DID#: [id number]
[2016-05-15] MEDS: RIVAROXABAN 10 MG TABLET PO SCH (17:55)
[2016-05-15 19:44] VITALS: BP 137/63; RESP 16
[2016-05-15] MEDS: TAMSULOSIN (SR) 0.4 MG CAP PO SCH (21:51)
--- NOTE | 2016-05-16 04:02 | CONS ---
DATE OF ADMISSION: 05/09/2016 DATE OF CONSULTATION: 05/15/2016 TYPE OF CONSULTATION: Surgical. REFERRING PHYSICIAN: Dr. Manjit Tate. CHIEF COMPLAINT: 1. Perianal abscesses. 2. Pyelonephritis. 3. Urinary retention, BPH, status post Blackmon. HISTORY OF PRESENT ILLNESS: Florentino Haas is a 70-year-old male with multiple significant comorbid ities who is a resident at [facility] and was admitted to [facility] with increasing leukocytosis at 15.5 and fever at 99.7 and increased BUN and creat inine with positive UA and multiple rectal perianal abscesses. He also had urinary retention and a Blackmon was placed. Surgical consult is obtained for further evaluation and treatment. PAST MEDICAL HISTORY: 1. Perianal abscesses. 2. COPD. 3. Muscle weakness. 4. Hypothyroidism. 5. Anemia. 6. Pyelonephritis. 7. Nicotine dependency. 8. Psychiatric disorder. 9. Leukocytosis. 10. Possible sepsis. 11. Coagulopathy, iatrogenic. 12. Urinary retention. 13. Benign prostatic hypertrophy. 14. Acute renal failure. 15. Anemia. PAST SURGICAL HISTORY: Denies. MEDICATIONS: As per MAR. SOCIAL HISTORY: Smokes tobacco actively. Denies alcohol or drug use. FAMILY HISTORY: Noncontributory. REVIEW OF SYSTEMS: No current fevers or chills. No nausea, vomiting. No abdominal pain. No chest pain or shortness of breath. No visual or neurologic changes. Blackmon in place. The patient is ref using surgical intervention and initially was refusing rectal exam as well. PHYSICAL EXAMINATION VITAL SIGNS: Temperature 97.7, pulse 84, blood pressure 137/62, saturating 100%. GENERAL: No acute distress, pleasant, and interactive. HEENT: Pupils equal, reactive. No scleral icterus. Mucous membranes are moist appearing. DENTAL: Missing some teeth. NECK: Supple, no crepitus, no JVD. PULMONARY: Normal respiratory effort. CARDIAC: S1, S2 present. ABDOMEN: Soft, nontender. EXTREMITIES: No edema. VASCULAR: Cap refill less than 2 seconds. GENITOURINARY: Blackmon in place. RECTAL: Indurated perianal region with fluctuance and purulent discharge bilaterally. Rectal exam without any fluctuance or induration or tenderness within the canal. VASCULAR: Cap refill less than 2 seconds. NEUROLOGICAL: Alert, oriented, moves all 4 extremities grossly. SKIN: No rashes. No jaundice. Perianal induration and abscesses. LABORATORY AND RADIOGRAPHIC: As per chart. ASSESSMENT AND PLAN: Florentino Haas is a 70-year-old male with multiple significant comorbidities. 1. Perianal abscesses of unknown etiology. The patient reports that has been going on for a long t karthik and he is refusing any surgical intervention. He only wants Sitz baths at this time, which I co ncur with. Continue antibiotics and local care. The patient advised about his risks of not drainin g the abscesses sufficiently and he does not want to proceed with surgery. In the meantime, rule ou t IBD as a source per. 2. Urinary retention with benign prostatic hypertrophy, status post Blackmon and Flomax. Urology foll owing. 3. Pyelonephritis, status post antibiotics. 4. Leukocytosis with possible sepsis, improving with pyelonephritis and perianal abscesses. Treatm ent as above. 5. Anemia without evidence of acute blood loss, continue monitoring. 6. Hypoalbuminemia is multifactorial; however, will benefit from nutritional optimization. 7. Acute renal failure has improved, probably secondary to dehydration. Continue judicious fluid m anagement and avoid nephrotoxic agents. 8. Hypothyroidism. Continue medical management. 9. Psychiatric disorder, on medications. Continue medical optimization. Thank you very much for consulting me in this patient's care. Dictated By: SHARMILA NUGENT/ROLANDO Conf#: [id number] DID#: [id number]
[2016-05-16] MEDS: metroNIDAZOLE 500 MG TAB PO SCH ×3 (06:05→22:02)
[2016-05-16] MEDS: LEVOTHYROXINE 125 MCG TAB PO SCH (06:05)
[2016-05-16] MEDS: PANTOPRAZOLE (EC) 40 MG TAB PO SCH (06:05)
[2016-05-16 07:29] VITALS: BP 98/58; RESP 18
[2016-05-16] MEDS: DIVALPROEX (EC) 500 MG TAB PO SCH ×2 (10:00→22:02)
[2016-05-16] MEDS: OLANZAPINE 5 MG TAB PO SCH ×2 (10:00→22:02)
--- NOTE | 2016-05-16 12:47 | CONS ---
Date/Time of Note Date/Time of Note DATE: 05/16/16 TIME: 12:46 Assessment/Plan Assessment/Plan Chief Complaint/Hosp Course SUBJECTIVE: No events overnight. No fevers. Alert, feels good, no n/v/d MICROBIOLOGY: Urine culture growing E. coli ESBL. Bilateral wound cultures of buttocks growing E coli ESBL. ANTIMICROBIALS: Invanz==> abx day #7 PHYSICAL EXAMINATION: GENERAL: Well-developed, elderly, -[place] man, who is alert, in no distress. HEENT: Head atraumatic, normocephalic. Sclerae anicteric. Buccal mucosa dry. NECK: Supple. CHEST: Chest rise is symmetrical. Breath sounds clear. HEART: S1, S2. ABDOMEN: Soft, bowel tones present. EXTREMITIES: Without cyanosis. ASSESSMENT: 1. Acute pyelonephritis with Escherichia coli extended-spectrum beta-lactamase urinary tract infection. 2. Urinary retention, status post Blackmon catheter. 3. Hyperlipidemia. 4. Hypothyroidism. PLAN: The patient remains stable, continue Invanz for 7 more days. F/u urology rec-s. ASHLEY staff Problems: Consultation Date/Type/Reason Admit Date/Time May 09, 2016 at 19:32 Type of Consultation: ID Exam/Review of Systems Vital Signs Vitals Vital Signs Date Time Temp Pulse Resp B/P Pulse Ox O2 Delivery O2 Flow Rate FiO2 05/16/16 07:29 98.2 71 18 98/58 98 05/16/16 02:19 21 Intake and Output 05/15/16 05/15/16 05/16/16 15:00 23:00 07:00 Intake Total 110 ml 580 ml 680 ml Output Total 800 ml 700 ml Balance 110 ml -220 ml -20 ml Results Result Diagram: 05/14/16 0455 05/14/16 0455 Medications Medications Current Medications Guaifenesin/ Codeine Phosphate (Robitussin Ac Liquid Cup) 5 ml Q4H PRN PO cough ; Start 05/09/16 at 22:30 Ondansetron HCl (Zofran Inj) 4 mg Q6H PRN IV NAUSEA AND/OR VOMITING; Start at 23:30 Acetaminophen (Tylenol Tab) 650 mg Q6H PRN PO PAIN LEVEL 1-3 OR FEVER; Start at 23:30 Acetaminophen/ Hydrocodone Bitart ([place] (5/325)) 1 tab Q6H PRN PO MODERATE PAIN LEVEL 4-6 Last administered on 05/13/16 04:47; Admin Dose 1 TAB; Start at 23:30 Morphine Sulfate (morphine) 2 mg Q4H PRN IV SEVERE PAIN LEVEL 7-10 Last administered on 05/10/16 02:45; Admin Dose 2 MG; Start 05/09/16 at 23:30 Docusate Sodium (Colace) 100 mg Q12H PRN PO CONSTIPATION; Start 05/09/16 at 23: 30 Magnesium Hydroxide (Milk Of Mag) 30 ml DAILY PRN PO CONSTIPATION; Start at 23:30 Zolpidem Tartrate (Ambien) 5 mg QHS PRN PO SLEEP; Start 05/09/16 at 23:30 Pantoprazole (Protonix Tab) 40 mg DAILY@06 PO Last administered on 05/16/16 06: 05; Admin Dose 40 MG; Start 05/10/16 at 06:00 Divalproex Sodium (Depakote) 500 mg BID PO Last administered on 05/16/16 10:00 ; Admin Dose 500 MG; Start 05/10/16 at 09:00 Olanzapine (Zyprexa) 5 mg BID PO Last administered on 05/16/16 10:00; Admin Dose 5 MG; Start 05/10/16 at 09:00 Tamsulosin HCl (Flomax) 0.4 mg HS PO Last administered on 05/15/16 21:51; Admin Dose 0.4 MG; Start 05/10/16 at 21:00 Metronidazole 500 mg 500 mg Q8 PO Last administered on 05/16/16 06:05; Admin Dose 500 MG; Start 05/12/16 at 15:30 Ertapenem/Sodium Chloride (Invanz/NS) 100 ml @ 200 mls/hr Q24H IVPB Last administered on 05/15/16 15:30; Admin Dose 200 MLS/HR; Start 05/15/16 at 14:00 KAITLIN CARLOS NP May 16, 2016 12:47
[2016-05-16] MEDS: ERTAPENEM SODIUM 1 GM in SOD CHLORIDE 0.9% 100 ML IVPB SCH (13:45)
--- NOTE | 2016-05-16 17:02 | PN ---
DATE: 05/16/2016 SUBJECTIVE: Urinary tract infection with E. coli ESBL and urinary retention, failed attempt to fina ve the Blackmon before and see if he does urinate on his own. In addition, the patient does have a per irectal abscess and he is still draining from it. OBJECTIVE: VITAL SIGNS: His temperature is 98.2, pulse is 71, respirations 18, blood pressure 98/58. ABDOMEN: Soft. GENITOURINARY: The Blackmon catheter that he has is draining clear urine. LABORATORY DATA: His CBC shows a white count of 8.2, hemoglobin 9.5, hematocrit 32.3. The latest B UN is 16, creatinine 1.17. Repeated urine culture on 05/14/2016 showed no growth after 24 hours, bu t 2 prior urine cultures did show E. coli ESBL. IMPRESSION: Urinary retention and urinary tract infection. PLAN: To continue him on ertapenem and tamsulosin and also keep the Blackmon catheter in. At a later date, we may try again after the infection is resolved, maybe we will try to remove the Blackmon cathet er and see if he is able to urinate. Dictated By: UCHE MCCABE/ROLANDO Conf#: [id number] DID#: [id number]
--- NOTE | 2016-05-16 17:27 | PN ---
Date/Time of Note Date/Time of Note DATE: 05/16/16 TIME: 17:25 Assessment/Plan Lines/Catheters IV Catheter Type (from Rust): Saline Lock Blackmon in Place (from Rust): Yes Assessment/Plan Chief Complaint/Hosp Course 1. Perianal abscesses of unknown etiology. The patient reports that has been going on for a long time and he is refusing any surgical intervention. He only wants Sitz baths at this time, which I concur with. -Sitz baths -Antibiotics -Local care. -Debridement recommended but pt refusing -Needs eventual colonoscopy 2. Urinary retention with benign prostatic hypertrophy, status post Blackmon and Flomax. Urology following. 3. Pyelonephritis, status post antibiotics. 4. Leukocytosis with possible sepsis, improving with pyelonephritis and perianal abscesses. Treatment as above. 5. Anemia without evidence of acute blood loss, continue monitoring. 6. Hypoalbuminemia is multifactorial; however, will benefit from nutritional optimization. 7. Acute renal failure has improved, probably secondary to dehydration. Continue judicious fluid management and avoid nephrotoxic agents. 8. Hypothyroidism. Continue medical management. 9. Psychiatric disorder, on medications. Continue medical optimization. Thank you Problems: Subjective 24 Hr Interval Summary No fevers or chills. No nausea vomiting. Minimal buttock pain. No headache. No visual changes. No dysuria however has a Blackmon. No abdominal pain. Still refusing surgery. No cough. No seizure. No rashes. Exam/Review of Systems Vital Signs Vitals Vital Signs Date Time Temp Pulse Resp B/P Pulse Ox O2 Delivery O2 Flow Rate FiO2 05/16/16 07:29 98.2 71 18 98/58 98 05/16/16 02:19 21 Intake and Output 05/15/16 05/15/16 05/16/16 15:00 23:00 07:00 Intake Total 110 ml 580 ml 680 ml Output Total 800 ml 700 ml Balance 110 ml -220 ml -20 ml Exam Free Text/Dictation GENERAL: No acute distress, pleasant, and interactive. HEENT: Pupils equal, reactive. No scleral icterus. Mucous membranes are moist appearing. DENTAL: Missing some teeth. NECK: Supple, no crepitus, no JVD. PULMONARY: Normal respiratory effort. CARDIAC: S1, S2 present. ABDOMEN: Soft, nontender. EXTREMITIES: No edema. VASCULAR: Cap refill less than 2 seconds. GENITOURINARY: Blackmon in place. RECTAL: Indurated perianal region with fluctuance and purulent discharge bilaterally. Rectal exam without any fluctuance or induration or tenderness within the canal. VASCULAR: Cap refill less than 2 seconds. NEUROLOGICAL: Alert, oriented, moves all 4 extremities grossly. SKIN: No rashes. No jaundice. Perianal induration and abscesses. Results Result Diagram: 05/14/16 0455 05/14/16 0455 SHARMILA CANSECO MD May 16, 2016 17:27
[2016-05-16] MEDS: RIVAROXABAN 10 MG TABLET PO SCH (17:43)
--- NOTE | 2016-05-16 18:11 | PN ---
DATE: 05/16/2016 The patient was seen by Dr. Dainel Rivas, the surgical garment assembler, who recommended an incision and drainage of perirectal abscess. Unfortunately, the patient refused and requesting only Sitz baths. Otherwise, no acute events. The patient states that he wants to go back home to [place] to s ee his mother. Case discussed with case management regarding placement. The patient is refusing an y surgical options for now. In addition, he does have urinary retention and Blackmon is in place. PHYSICAL EXAMINATION: VITAL SIGNS: Blood pressure 98.2, afebrile, pulse 71, respirations 18, blood pressure 98/58, satura tion 98% on 2 liters. GENERAL: The patient is in no acute distress. HEENT: Normocephalic, atraumatic. The patient is pale. CARDIOVASCULAR: S1 and S2, regular rate. LUNGS: Clear. ABDOMEN: Soft, nontender. EXTREMITIES: No clubbing, cyanosis, or edema. GENITOURINARY: Blackmon to gravity. LABORATORY DATA: No new labs today. Repeat urine culture on 05/14/2016 is negative. MEDICATIONS: 1. Ertapenem 1 gram q.24 hours. 2. Xarelto 10 mg with dinner for DVT prophylaxis. 3. Flagyl 500 q.8 hours. 4. Synthroid 125 mcg before breakfast. 5. Flomax 0.4 at bedtime. 6. Depakote 500 b.i.d. 7. Zyprexa 5 mg ____ 8. Protonix 40 mg daily. 9. Zofran p.r.n. 10. Tylenol p.r.n. 11. [place] p.r.n. 12. Morphine p.r.n. 13. Colace p.r.n. 14. Milk of magnesia p.r.n. 15. Ambien p.r.n. 16. Robitussin p.r.n. ASSESSMENT AND PLAN: This is an unfortunate 70-year-old -[place] male with history of psych iatric disorder, urinary retention, benign prostatic hypertrophy, multiple perirectal abscesses, chr onic obstructive pulmonary disease, who presented with pyelonephritis, urinary tract infection, bev y sepsis, multiple infected perirectal abscesses. 1. Pyelonephritis with urinary retention. The infection is under control with antibiotics. Repeat cultures are negative. Would continue ertapenem and duration per ID. 2. Multiple perirectal abscesses. The patient is refusing incision and drainage. Continue wound c are and antibiotic management, Sitz baths as well. Dr. Washington, the GI specialist, is seeing the pat ient to rule out possible inflammatory bowel disease causing fistulas. Serology are pending. 3. Hypothyroidism, on Synthroid. Follow up TSH. 4. Acute renal failure, resolved with IV fluid hydration. 5. Encouraging to eat more. 6. Psychiatric disorder, extensive, on Depakote and Zyprexa. 7. Generalized weakness. Physical therapy, but unfortunately is refusing it. 8. Continue Xarelto for deep venous thrombosis prophylaxis. 9. Continue Protonix for gastrointestinal prophylaxis. 10. [facility] as he will need to continue with current antibio tics and wound care to his rectal area. We will follow. Dictated By: CHRISTINE MALDONADO/ROLANDO Conf#: [id number] DID#: [id number]
--- NOTE | 2016-05-16 19:16 | CONS ---
Date/Time of Note Date/Time of Note DATE: 05/16/16 TIME: 19:15 Assessment/Plan Assessment/Plan Additional Assessment/Plan Additional Assessment/Plan IMPRESSION: 1. Multiple perirectal abscesses. 2. Pyelonephritis. 3. Urinary retention. 4. Psychiatric disorder. 5. Chronic obstructive pulmonary disease. 6. Hypothyroidism. 7. Anemia. Plan Continue present care Patient declined rectal examination. IBD serology colonoscopy if pt agrees Consultation Date/Type/Reason Admit Date/Time May 09, 2016 at 19:32 Type of Consultation: ID [id number] HR Interval Summary Constitutional: no complaints Exam/Review of Systems Vital Signs Vitals Vital Signs Date Time Temp Pulse Resp B/P Pulse Ox O2 Delivery O2 Flow Rate FiO2 05/16/16 07:29 98.2 71 18 98/58 98 05/16/16 02:19 21 Intake and Output 05/15/16 05/15/16 05/16/16 15:00 23:00 07:00 Intake Total 110 ml 580 ml 680 ml Output Total 800 ml 700 ml Balance 110 ml -220 ml -20 ml Exam Constitutional: alert, oriented, well developed Psych: nl mood/affect, no complaints Head: atraumatic, normocephalic Eyes: EOMI, PERRL, nl conjunctiva, nl lids, nl sclera ENMT: nl external ears & nose, nl lips & teeth, nl nasal mucosa & septum Neck: non-tender, supple Respiratory: clear to auscultation, normal air movement Cardiovascular: nl pulses, regular rate and rhythm Gastrointestinal: nl liver, spleen, non-tender, soft Musculoskeletal: nl extremities to inspection, nl gait and stance Extremities: normal pulses Neurological: COATING AND BAKING OPERATOR II-XII intact, nl mental status, nl speech, nl strength Skin: nl turgor, No rash or lesions Lymph: nl lymph nodes Results Result Diagram: 05/14/16 0455 05/14/16 0455 Medications Medications Current Medications Guaifenesin/ Codeine Phosphate (Robitussin Ac Liquid Cup) 5 ml Q4H PRN PO cough ; Start 05/09/16 at 22:30 Ondansetron HCl (Zofran Inj) 4 mg Q6H PRN IV NAUSEA AND/OR VOMITING; Start at 23:30 Acetaminophen (Tylenol Tab) 650 mg Q6H PRN PO PAIN LEVEL 1-3 OR FEVER; Start at 23:30 Acetaminophen/ Hydrocodone Bitart ([place] (5/325)) 1 tab Q6H PRN PO MODERATE PAIN LEVEL 4-6 Last administered on 05/13/16 04:47; Admin Dose 1 TAB; Start at 23:30 Morphine Sulfate (morphine) 2 mg Q4H PRN IV SEVERE PAIN LEVEL 7-10 Last administered on 05/10/16 02:45; Admin Dose 2 MG; Start 05/09/16 at 23:30 Docusate Sodium (Colace) 100 mg Q12H PRN PO CONSTIPATION; Start 05/09/16 at 23: 30 Magnesium Hydroxide (Milk Of Mag) 30 ml DAILY PRN PO CONSTIPATION; Start at 23:30 Zolpidem Tartrate (Ambien) 5 mg QHS PRN PO SLEEP; Start 05/09/16 at 23:30 Pantoprazole (Protonix Tab) 40 mg DAILY@06 PO Last administered on 05/16/16 06: 05; Admin Dose 40 MG; Start 05/10/16 at 06:00 Divalproex Sodium (Depakote) 500 mg BID PO Last administered on 05/16/16 10:00 ; Admin Dose 500 MG; Start 05/10/16 at 09:00 Olanzapine (Zyprexa) 5 mg BID PO Last administered on 05/16/16 10:00; Admin Dose 5 MG; Start 05/10/16 at 09:00 Tamsulosin HCl (Flomax) 0.4 mg HS PO Last administered on 05/15/16 21:51; Admin Dose 0.4 MG; Start 05/10/16 at 21:00 Metronidazole 500 mg 500 mg Q8 PO Last administered on 05/16/16 14:59; Admin Dose 500 MG; Start 05/12/16 at 15:30 Ertapenem/Sodium Chloride (Invanz/NS) 100 ml @ 200 mls/hr Q24H IVPB Last administered on 05/16/16 13:45; Admin Dose 200 MLS/HR; Start 05/15/16 at 14:00 KEELEY GUERRA MD May 16, 2016 19:16
[2016-05-16 20:52] VITALS: BP 143/64; RESP 18
[2016-05-16] MEDS: TAMSULOSIN (SR) 0.4 MG CAP PO SCH (22:02)
[2016-05-17 06:18] LABS: ADD SCAN DIFF NO
[2016-05-17] MEDS: PANTOPRAZOLE (EC) 40 MG TAB PO SCH (06:22)
[2016-05-17] MEDS: metroNIDAZOLE 500 MG TAB PO SCH ×3 (06:22→21:48)
[2016-05-17] MEDS: LEVOTHYROXINE 125 MCG TAB PO SCH (06:22)
[2016-05-17 06:25] LABS: BASOPHILS % 0.5 % (0.0-2.0); EOSINOPHILS # 0.5 10^3/ul (0.0-0.5); EOSINOPHILS % 6.2 % (0.0-7.0); HEMATOCRIT 33.2 % (42.0-52.0); HEMOGLOBIN 10.3 g/dl (14.0-18.0); LYMPHOCYTES % 37.7 % (15.0-51.0); MEAN CORPUSCULAR HEMOGLOBIN 25.6 pg (29.0-33.0); MEAN CORPUSCULAR VOLUME 82.6 fl (82.0-101.0); MEAN PLATELET VOLUME 9.1 fl (7.4-10.4); MONOCYTE # 0.8 10^3/ul (0.3-0.9); MONOCYTES % 10.2 % (0.0-11.0); NEUTROPHIL # 3.6 10^3/ul (1.6-7.5); NEUTROPHILS % 45.1 % (39.0-77.0); PLATELET COUNT 470 10^3/UL (140-415); RED BLOOD COUNT 4.02 10^6/ul (4.70-6.10); RED CELL DISTRIBUTION WIDTH 16.9 % (11.5-14.5); WHITE BLOOD COUNT 7.9 10^3/ul (4.8-10.8)
[2016-05-17 06:37] LABS: POTASSIUM 4.5 mmol/L (3.5-5.1)
[2016-05-17 06:40] LABS: CALCIUM 9.6 mg/dl (8.4-10.2); CREATININE 1.21 mg/dl (0.61-1.24)
[2016-05-17 06:41] LABS: MAGNESIUM 1.9 mg/dl (1.7-2.5); PHOSPHORUS 3.7 mg/dl (2.5-4.9)
[2016-05-17 08:02] VITALS: RESP 18
[2016-05-17 10:11] VITALS: BP 92/50; PULSE 66; RESP 16
[2016-05-17] MEDS: DIVALPROEX (EC) 500 MG TAB PO SCH ×2 (10:11→21:48)
[2016-05-17] MEDS: OLANZAPINE 5 MG TAB PO SCH ×2 (10:11→21:48)
--- NOTE | 2016-05-17 13:23 | PN ---
DATE: 05/17/2016 SUBJECTIVE: Urinary retention, urinary tract infection, and perirectal abscess. Initially patient also has had bilateral hydronephrosis because of urinary retention Patient states that he is feel ing uncomfortable and he still has some drainage from the perirectal abscess. OBJECTIVE: VITAL SIGNS: Temperature is 97.8, the blood pressure 92/50, pulse is 66, respirations 16. ABDOMEN: Soft. The Blackmon catheter is draining clear urine. LABORATORY DATA: CBC shows a white count of 7.9, hemoglobin 10.3, hematocrit 33.2. BUN is 23, crea tinine 1.21. Electrolytes are normal. The urine culture from 2 days ago is no growth after 48 hour s. IMPRESSION: 1. Urinary retention. 2. Perirectal abscesses which are draining, but the patient has not had any surgery for it. He did have a urinary tract infection, was Extended Spectrum Beta Lactamase coli, but that with the treatm ent has cleared, as the last urine culture from May 14 showed no growth. RECOMMENDATION: To continue the present treatment and depending on what is going to happen to his p erirectal abscesses, then one could decide on his urinary problem. In fact, I may have him discont inued the Blackmon catheter tomorrow morning and see if he does urinate. Previous attempts to remove t he Blackmon catheter were not successful, but we will try again since now the infection has cleared. Dictated By: UCHE MCCABE/ROLANDO Conf#: [id number] DID#: [id number]
[2016-05-17] MEDS: ERTAPENEM SODIUM 1 GM in SOD CHLORIDE 0.9% 100 ML IVPB SCH (14:15)
--- NOTE | 2016-05-17 15:00 | CONS ---
Date/Time of Note Date/Time of Note DATE: 05/17/16 TIME: 14:59 Assessment/Plan Assessment/Plan Chief Complaint/Hosp Course SUBJECTIVE: No events overnight. No fevers. MICROBIOLOGY: Urine culture growing E. coli ESBL. Bilateral wound cultures of buttocks growing E coli ESBL. ANTIMICROBIALS: Invanz==> abx day #8 PHYSICAL EXAMINATION: GENERAL: Well-developed, elderly, -Stateless man, who is alert, in no distress. HEENT: Head atraumatic, normocephalic. Sclerae anicteric. Buccal mucosa dry. NECK: Supple. CHEST: Chest rise is symmetrical. Breath sounds clear. HEART: S1, S2. ABDOMEN: Soft, bowel tones present. EXTREMITIES: Without cyanosis. ASSESSMENT: 1. Acute pyelonephritis with Escherichia coli extended-spectrum beta-lactamase urinary tract infection. 2. Urinary retention, status post Blackmon catheter. 3. Hyperlipidemia. 4. Hypothyroidism. PLAN: The patient remains stable, continue Invanz for 6 more days. DW staff Problems: Consultation Date/Type/Reason Admit Date/Time May 09, 2016 at 19:32 Type of Consultation: ID Exam/Review of Systems Vital Signs Vitals Vital Signs Date Time Temp Pulse Resp B/P Pulse Ox O2 Delivery O2 Flow Rate FiO2 05/17/16 13:31 21 05/17/16 10:11 66 16 92/50 Room Air 05/17/16 08:02 97.8 98 Intake and Output 05/16/16 05/16/16 05/17/16 15:00 23:00 07:00 Intake Total 560 ml 800 ml Output Total 650 ml 500 ml Balance -90 ml 300 ml Results Result Diagram: 05/17/16 0605 05/17/16 0605 Results 24 hrs Laboratory Tests Test 05/17/16 06:05 White Blood Count 7.9 Red Blood Count 4.02 L Hemoglobin 10.3 L Hematocrit 33.2 L Mean Corpuscular Volume 82.6 Mean Corpuscular Hemoglobin 25.6 L Mean Corpuscular Hemoglobin Concent 31.0 L Red Cell Distribution Width 16.9 H Platelet Count 470 H Mean Platelet Volume 9.1 Neutrophils % 45.1 Lymphocytes % 37.7 Monocytes % 10.2 Eosinophils % 6.2 Basophils % 0.5 Nucleated Red Blood Cells % 0.0 Neutrophils # 3.6 Lymphocytes # 3.0 H Monocytes # 0.8 Eosinophils # 0.5 Basophils # 0.0 Nucleated Red Blood Cells # 0.0 Sodium Level 144 Potassium Level 4.5 Chloride Level 106 Carbon Dioxide Level 25 Anion Gap 18 H Blood Urea Nitrogen 23 H Creatinine 1.21 Glucose Level 104 Calcium Level 9.6 Phosphorus Level 3.7 Magnesium Level 1.9 Medications Medications Current Medications Guaifenesin/ Codeine Phosphate (Robitussin Ac Liquid Cup) 5 ml Q4H PRN PO cough ; Start 05/09/16 at 22:30 Ondansetron HCl (Zofran Inj) 4 mg Q6H PRN IV NAUSEA AND/OR VOMITING; Start at 23:30 Acetaminophen (Tylenol Tab) 650 mg Q6H PRN PO PAIN LEVEL 1-3 OR FEVER; Start at 23:30 Acetaminophen/ Hydrocodone Bitart ([place] (5/325)) 1 tab Q6H PRN PO MODERATE PAIN LEVEL 4-6 Last administered on 05/13/16 04:47; Admin Dose 1 TAB; Start at 23:30 Morphine Sulfate (morphine) 2 mg Q4H PRN IV SEVERE PAIN LEVEL 7-10 Last administered on 05/10/16 02:45; Admin Dose 2 MG; Start 05/09/16 at 23:30 Docusate Sodium (Colace) 100 mg Q12H PRN PO CONSTIPATION; Start 05/09/16 at 23: 30 Magnesium Hydroxide (Milk Of Mag) 30 ml DAILY PRN PO CONSTIPATION; Start at 23:30 Zolpidem Tartrate (Ambien) 5 mg QHS PRN PO SLEEP; Start 05/09/16 at 23:30 Pantoprazole (Protonix Tab) 40 mg DAILY@06 PO Last administered on 05/17/16 06: 22; Admin Dose 40 MG; Start 05/10/16 at 06:00 Divalproex Sodium (Depakote) 500 mg BID PO Last administered on 05/17/16 10:11 ; Admin Dose 500 MG; Start 05/10/16 at 09:00 Olanzapine (Zyprexa) 5 mg BID PO Last administered on 05/17/16 10:11; Admin Dose 5 MG; Start 05/10/16 at 09:00 Tamsulosin HCl (Flomax) 0.4 mg HS PO Last administered on 05/16/16 22:02; Admin Dose 0.4 MG; Start 05/10/16 at 21:00 Metronidazole 500 mg 500 mg Q8 PO Last administered on 05/17/16 14:15; Admin Dose 500 MG; Start 05/12/16 at 15:30 Ertapenem/Sodium Chloride (Invanz/NS) 100 ml @ 200 mls/hr Q24H IVPB Last administered on 05/17/16 14:15; Admin Dose 200 MLS/HR; Start 05/15/16 at 14:00 KAILTIN CARLOS NP May 17, 2016 15:00
[2016-05-17] MEDS: RIVAROXABAN 10 MG TABLET PO SCH (17:44)
--- NOTE | 2016-05-17 18:46 | PN ---
DATE: 05/17/2016 SUBJECTIVE: The patient seen. Unfortunately, he is refusing the Sitz bath. He has been refusing s urgery to I and D his perirectal abscesses. He is also refusing colonoscopy. I appreciate all the above doctors who are seeing the patient in consultation. The patient remains on broad spectrum ant ibiotics, on ertapenem for both UTI and his perirectal abscesses. PHYSICAL EXAMINATION: VITAL SIGNS: Temperature 97.8, pulse 66, respirations 16, blood pressure 92/50, saturation 98% on r oom air. GENERAL: The patient is no acute distress. HEENT: Normocephalic, atraumatic. The patient is pale. CARDIOVASCULAR: S1, S2, regular rate. LUNGS: Clear. ABDOMEN: Soft, nontender. EXTREMITIES: No clubbing, cyanosis, or edema. GENITOURINARY: Blackmon to gravity. Has perirectal abscesses. He is refusing this to be examined at the rectum area. MEDICATIONS: The patient is on: 1. Ertapenem 1 gram q.24 hours. 2. Xarelto 10 mg with dinner. 3. Flagyl 500 q.8h. 4. Synthroid 125 mcg daily breakfast. 5. Flomax 0.4 at bedtime. 6. Depakote 500 b.i.d. 7. Zyprexa 5 b.i.d. 8. Protonix 40 mg daily. 9. Zofran p.r.n. 10. Tylenol p.r.n. 11. [place] p.r.n. 12. Morphine p.r.n. 13. Colace p.r.n. 14. Milk of magnesia. 15. Ambien. 16. Robitussin p.r.n. ASSESSMENT AND PLAN: This is a very unfortunate 70-year-old male with history of p sychiatric disorder, urinary retention, benign prostatic hypertrophy, multiple perirectal abscesses, chronic obstructive pulmonary disease who presented with pyelonephritis, urinary tract infection, u rinary retention, sepsis, and multiple infected perirectal abscesses. 1. Pyelonephritis with urinary retention. Blackmon to gravity. Currently being treated, so we may be able to remove the Blackmon now that the infection is under control. Urology is following closely. 2. Multiple perirectal abscesses. Continue above antibiotics. Recommend Sitz baths and incision a nd drainage. The patient is not very cooperative. Serology for inflammatory bowel disease was sent . The patient also would benefit from a colonoscopy to rule out any inflammatory bowel disease, but the patient is currently refusing any procedures. 3. Hypothyroidism. Continue Synthroid. Follow up TSH level. 4. Acute renal failure. Observe. The patient's p.o. intake is not very good, may need more fluid challenges. Kidney function is slightly worsened. 5. Encourage patient to eat more. 6. Psychiatric disorder. Remains on Depakote and Zyprexa. Generalized weakness. Physical therapy as tolerated. Unfortunately, he is refusing even to participate with physical therapy. 7. Continue Xarelto for deep vein thrombosis prophylaxis and Protonix for gastrointestinal prophyla xis. 8. Disposition. As the patient is quite a lot of care, to custodial facility, if we remove the Blackmon, maybe we can put him in an assisted living. We will follow. Dictated By: CHRISTINE MALDONADO/ROLANDO Conf#: [id number] DID#: [id number] CC: AV CALDERON MD;*EndCC*
[2016-05-17 19:49] VITALS: BP 95/53; RESP 20
[2016-05-17] MEDS: TAMSULOSIN (SR) 0.4 MG CAP PO SCH (21:48)
--- NOTE | 2016-05-17 23:53 | PN ---
Date/Time of Note Date/Time of Note DATE: 05/17/16 TIME: 23:52 Assessment/Plan Lines/Catheters IV Catheter Type (from [facility]): Saline Lock Blackmon in Place (from [facility]): Yes Assessment/Plan Chief Complaint/Hosp Course 1. Perianal abscesses of unknown etiology. The patient reports that has been going on for a long time and he is refusing any surgical intervention. He only wants Sitz baths at this time, which I concur with. -Sitz baths -Antibiotics -Local care. -Debridement recommended but pt refusing -Needs eventual colonoscopy 2. Urinary retention with benign prostatic hypertrophy, status post Blackmon and Flomax. Urology following. 3. Pyelonephritis, status post antibiotics. 4. Leukocytosis with possible sepsis, improving with pyelonephritis and perianal abscesses. Treatment as above. 5. Anemia without evidence of acute blood loss, continue monitoring. 6. Hypoalbuminemia is multifactorial; however, will benefit from nutritional optimization. 7. Acute renal failure has improved, probably secondary to dehydration. Continue judicious fluid management and avoid nephrotoxic agents. 8. Hypothyroidism. Continue medical management. 9. Psychiatric disorder, on medications. Continue medical optimization. Thank you Problems: Subjective 24 Hr Interval Summary No fevers or chills. No nausea vomiting. Minimal buttock pain. No headache. No visual changes. No dysuria however has a Blackmon. No abdominal pain. Still refusing surgery. No cough. No seizure. No rashes. Exam/Review of Systems Vital Signs Vitals Vital Signs Date Time Temp Pulse Resp B/P Pulse Ox O2 Delivery O2 Flow Rate FiO2 05/17/16 19:49 98.1 80 20 95/53 99 05/17/16 17:11 21 05/17/16 10:11 Room Air Intake and Output 05/16/16 05/16/16 05/17/16 15:00 23:00 07:00 Intake Total 560 ml 800 ml Output Total 650 ml 500 ml Balance -90 ml 300 ml Exam Free Text/Dictation GENERAL: No acute distress, pleasant, and interactive. HEENT: Pupils equal, reactive. No scleral icterus. Mucous membranes are moist appearing. DENTAL: Missing some teeth. NECK: Supple, no crepitus, no JVD. PULMONARY: Normal respiratory effort. CARDIAC: S1, S2 present. ABDOMEN: Soft, nontender. EXTREMITIES: No edema. VASCULAR: Cap refill less than 2 seconds. GENITOURINARY: Blackmon in place. RECTAL: Indurated perianal region with fluctuance and purulent discharge bilaterally. Rectal exam without any fluctuance or induration or tenderness within the canal. VASCULAR: Cap refill less than 2 seconds. NEUROLOGICAL: Alert, oriented, moves all 4 extremities grossly. SKIN: No rashes. No jaundice. Perianal induration and abscesses. Results Result Diagram: 05/17/16 0605 05/17/16 0605 SHARMILA CANSECO MD May 17, 2016 23:53
[2016-05-18] MEDS: PANTOPRAZOLE (EC) 40 MG TAB PO SCH (06:00)
[2016-05-18] MEDS: metroNIDAZOLE 500 MG TAB PO SCH ×3 (06:00→21:06)
[2016-05-18] MEDS: LEVOTHYROXINE 125 MCG TAB PO SCH (07:00)
[2016-05-18] MEDS: DIVALPROEX (EC) 500 MG TAB PO SCH ×2 (08:38→21:06)
[2016-05-18] MEDS: OLANZAPINE 5 MG TAB PO SCH ×2 (08:38→21:06)
--- NOTE | 2016-05-18 09:16 | PN ---
DATE: 05/18/2016 SUBJECTIVE: Urinary retention. I put an order yesterday to remove the Blackmon catheter at 6:00 a.m. t his morning; however, the catheter was removed yesterday afternoon. The patient did not void all nig ht and he denies having any pain and he appears to be comfortable. OBJECTIVE VITAL SIGNS: His temperature is 98.1, pulse is 80, respiration 20, blood pressure 95/53. ABDOMEN: Soft. The bladder is distended. External genitalia are normal. LABORATORY DATA: From yesterday, a CBC shows a white count of 7.9, hemoglobin 10.3, hematocrit 33.2 . BUN is 23, creatinine 1.2. Electrolytes are normal, urine culture from 4 to 17, is no growth aft er 48 hours. IMPRESSION: 1. Urinary retention. 2. Perirectal abscess that patient has had no treatment except let it drained by itself. PLAN: I did go ahead and insert the Blackmon catheter for him, 16-Spanish coude catheter and over 800 m L of urine drained out. We shall keep the Blackmon catheter in. Dictated By: UCHE MCCABE/ROLANDO Conf#: [id number] DID#: [id number]
[2016-05-18] MEDS: ERTAPENEM SODIUM 1 GM in SOD CHLORIDE 0.9% 100 ML IVPB SCH (13:33)
--- NOTE | 2016-05-18 14:51 | CONS ---
Date/Time of Note Date/Time of Note DATE: 05/18/16 TIME: 14:50 Assessment/Plan Assessment/Plan Chief Complaint/Hosp Course SUBJECTIVE: No events overnight. No fevers. S/p Blackmon insertion ANTIMICROBIALS: Invanz==> abx day #9 PHYSICAL EXAMINATION: GENERAL: Well-developed, elderly, -Indian man, who is alert, in no distress. HEENT: Head atraumatic, normocephalic. Sclerae anicteric. Buccal mucosa dry. NECK: Supple. CHEST: Chest rise is symmetrical. Breath sounds clear. HEART: S1, S2. ABDOMEN: Soft, bowel tones present. EXTREMITIES: Without cyanosis. ASSESSMENT: 1. Acute pyelonephritis with Escherichia coli extended-spectrum beta-lactamase urinary tract infection. 2. Urinary retention, status post Blackmon catheter. 3. Hyperlipidemia. 4. Hypothyroidism. PLAN: The patient remains stable, continue Invanz for 5 more days, urology rec- s noted. DW staff Problems: Consultation Date/Type/Reason Admit Date/Time May 09, 2016 at 19:32 Type of Consultation: ID Exam/Review of Systems Vital Signs Vitals Vital Signs Date Time Temp Pulse Resp B/P Pulse Ox O2 Delivery O2 Flow Rate FiO2 05/17/16 19:49 98.1 80 20 95/53 99 05/17/16 17:11 21 05/17/16 10:11 Room Air Intake and Output 05/17/16 05/17/16 05/18/16 15:00 23:00 07:00 Intake Total 820 ml 200 ml Balance 820 ml 200 ml Results Result Diagram: 05/17/16 0605 05/17/16 0605 Medications Medications Current Medications Guaifenesin/ Codeine Phosphate (Robitussin Ac Liquid Cup) 5 ml Q4H PRN PO cough ; Start 05/09/16 at 22:30 Ondansetron HCl (Zofran Inj) 4 mg Q6H PRN IV NAUSEA AND/OR VOMITING; Start at 23:30 Acetaminophen (Tylenol Tab) 650 mg Q6H PRN PO PAIN LEVEL 1-3 OR FEVER; Start at 23:30 Acetaminophen/ Hydrocodone Bitart ([place] (5/325)) 1 tab Q6H PRN PO MODERATE PAIN LEVEL 4-6 Last administered on 05/13/16t 04:47; Admin Dose 1 TAB; Start at 23:30 Morphine Sulfate (morphine) 2 mg Q4H PRN IV SEVERE PAIN LEVEL 7-10 Last administered on 05/10/16 02:45; Admin Dose 2 MG; Start 05/09/16 at 23:30 Docusate Sodium (Colace) 100 mg Q12H PRN PO CONSTIPATION; Start 05/09/16 at 23: 30 Magnesium Hydroxide (Milk Of Mag) 30 ml DAILY PRN PO CONSTIPATION; Start at 23:30 Zolpidem Tartrate (Ambien) 5 mg QHS PRN PO SLEEP; Start 05/09/16 at 23:30 Pantoprazole (Protonix Tab) 40 mg DAILY@06 PO Last administered on 05/17/16 06: 22; Admin Dose 40 MG; Start 05/10/16 at 06:00 Divalproex Sodium (Depakote) 500 mg BID PO Last administered on 05/18/16 08:38 ; Admin Dose 500 MG; Start 05/10/16 at 09:00 Olanzapine (Zyprexa) 5 mg BID PO Last administered on 05/18/16 08:38; Admin Dose 5 MG; Start 05/10/16 at 09:00 Tamsulosin HCl (Flomax) 0.4 mg HS PO Last administered on 05/17/16 21:48; Admin Dose 0.4 MG; Start 05/10/16 at 21:00 Metronidazole 500 mg 500 mg Q8 PO Last administered on 05/18/16 13:33; Admin Dose 500 MG; Start 05/12/16 at 15:30 Ertapenem/Sodium Chloride (Invanz/NS) 100 ml @ 200 mls/hr Q24H IVPB Last administered on 05/18/16 13:33; Admin Dose 200 MLS/HR; Start 05/15/16 at 14:00 KAITLIN CARLOS NP May 18, 2016 14:51
[2016-05-18] MEDS: RIVAROXABAN 10 MG TABLET PO SCH (17:50)
[2016-05-18 19:45] VITALS: BP 100/56; RESP 20
--- NOTE | 2016-05-18 20:04 | PN ---
DATE: 05/18/2016 SUBJECTIVE: Patient seen, case discussed with nursing staff, case discussed with Dr. Espinoza. Unfo rtunately, the patient removed his Blackmon at night and he had problems urinating. Blackmon was then chas ricardo back in by the urologist. In addition, the patient continues to refuse wound care to the perire ctal abscesses area, but the patient overall says he is feeling better as he does not have any more perirectal pain. PHYSICAL EXAMINATION: VITAL SIGNS: Temperature 98.1, pulse 80, respirations 20, blood pressure 95/53, saturation 99% on r oom air. GENERAL: No acute distress. HEENT: Normocephalic, atraumatic. The patient is pale. Decreased dentition. CARDIOVASCULAR: S1, S2, regular rate. LUNGS: Clear. ABDOMEN: Soft, nontender. EXTREMITIES: No clubbing, cyanosis or edema. GENITOURINARY: Blackmon to gravity. LABORATORY DATA: White count is 7.9, hemoglobin 10.3. This was yesterday. Creatinine was 23/1.21 yesterday. MEDICATIONS: Reviewed and include: 1. Ertapenem 1 gram q.24 hours. 2. Xarelto 10 mg with dinner. 3. Flagyl 500 . 4. Synthroid 125 mcg daily. 5. Flomax 0.4 at bedtime. 6. Depakote 500 b.i.d. 7. Zyprexa 5 b.i.d. 8. Protonix 20 mg daily. 9. Zofran p.r.n. 10. Tylenol p.r.n. 11. [place] p.r.n. 12. Morphine p.r.n. 13. Colace. 14. Milk of magnesia. 15. Ambien. 16. Robitussin p.r.n. ASSESSMENT AND PLAN: This is an unfortunate 70-year-old -[place] male with history of psych iatric disorder, urinary retention, benign prostatic hypertrophy, multiple perirectal abscesses, chr onic obstructive pulmonary disease, who presented with pyelonephritis, urinary tract infection, urin hector retention, sepsis and multiple infected perirectal abscesses. 1. Pyelonephritis and urinary tract infection with urinary retention. Finishing course of antibiot ics. Unfortunately, has urinary retention and likely will need TURP. In the meantime, Blackmon will b e kept in until further instructed 2. Multiple perirectal abscesses. The patient refusing ID, refusing , refusing wound care. C ontinue above antibiotics and supportive care. 3. Generalized debilitated state. Awaiting SNF placement. 4. Hypothyroidism on Synthroid. 5. Acute renal failure. Kidney function is at baseline now. 6. Patient ate more today. Continue to monitor. Encourage him to eat his meals. 7. Psychiatric disorder. Continue Depakote and Zyprexa. 8. Patient refuses physical therapy. 9. Continue Xarelto for deep venous thrombosis prophylaxis. The patient is basically in bed all th e time. DISPOSITION: Soon. We will follow. Dictated By: CHRISTINE MALDONADO/ROLANDO Conf#: [id number] DID#: [id number]
[2016-05-18] MEDS: TAMSULOSIN (SR) 0.4 MG CAP PO SCH (21:05)
[2016-05-19] MEDS: metroNIDAZOLE 500 MG TAB PO SCH ×3 (06:24→21:04)
[2016-05-19] MEDS: PANTOPRAZOLE (EC) 40 MG TAB PO SCH (06:24)
[2016-05-19] MEDS: LEVOTHYROXINE 125 MCG TAB PO SCH (06:24)
[2016-05-19 08:47] VITALS: BP 102/58; RESP 16
[2016-05-19] MEDS: DIVALPROEX (EC) 500 MG TAB PO SCH ×2 (11:07→21:04)
[2016-05-19] MEDS: OLANZAPINE 5 MG TAB PO SCH ×2 (11:07→21:04)
[2016-05-19] MEDS: ERTAPENEM SODIUM 1 GM in SOD CHLORIDE 0.9% 100 ML IVPB SCH (15:07)
--- NOTE | 2016-05-19 15:35 | PN ---
Date/Time of Note Date/Time of Note DATE: 05/18/16 TIME: 21:33 Assessment/Plan Lines/Catheters IV Catheter Type (from [facility]): Saline Lock Blackmon in Place (from [facility]): Yes Assessment/Plan Chief Complaint/Hosp Course 1. Perianal abscesses of unknown etiology. The patient reports that has been going on for a long time and he is refusing any surgical intervention. He only wants Sitz baths. -Sitz baths -Antibiotics -Local care. -Debridement recommended but pt refusing -Needs eventual colonoscopy 2. Urinary retention with benign prostatic hypertrophy, status post Blackmon and Flomax. Urology following. 3. Pyelonephritis, status post antibiotics. 4. Leukocytosis with possible sepsis, improving with pyelonephritis and perianal abscesses. Treatment as above. 5. Anemia without evidence of acute blood loss, continue monitoring. 6. Hypoalbuminemia is multifactorial; however, will benefit from nutritional optimization. 7. Acute renal failure has improved, probably secondary to dehydration. Continue judicious fluid management and avoid nephrotoxic agents. 8. Hypothyroidism. Continue medical management. 9. Psychiatric disorder, on medications. Continue medical optimization. Thank you Late entry 05/18 Problems: Subjective 24 Hr Interval Summary No fevers or chills. No nausea vomiting. Minimal buttock pain. No headache. No visual changes. No dysuria however has a Blackmon. No abdominal pain. Still refusing surgery. No cough. No seizure. No rashes. Exam/Review of Systems Vital Signs Vitals Vital Signs Date Time Temp Pulse Resp B/P Pulse Ox O2 Delivery O2 Flow Rate FiO2 05/19/16 08:47 98.7 63 16 102/58 99 05/17/16 17:11 21 05/17/16 10:11 Room Air Intake and Output 05/18/16 05/18/16 05/19/16 14:59 22:59 06:59 Intake Total 1180 ml 720 ml Output Total 1300 ml 720 ml Balance -120 ml 0 ml Exam Free Text/Dictation GENERAL: No acute distress, pleasant, and interactive. HEENT: Pupils equal, reactive. No scleral icterus. Mucous membranes are moist appearing. DENTAL: Missing some teeth. NECK: Supple, no crepitus, no JVD. PULMONARY: Normal respiratory effort. CARDIAC: S1, S2 present. ABDOMEN: Soft, nontender. EXTREMITIES: No edema. VASCULAR: Cap refill less than 2 seconds. GENITOURINARY: Blackmon in place. RECTAL: Indurated perianal region with fluctuance and purulent discharge bilaterally. Rectal exam without any fluctuance or induration or tenderness within the canal. VASCULAR: Cap refill less than 2 seconds. NEUROLOGICAL: Alert, oriented, moves all 4 extremities grossly. SKIN: No rashes. No jaundice. Perianal induration and abscesses. Results Result Diagram: 05/17/16 0605 05/17/16 0605 SHARMILA CANSECO MD May 19, 2016 15:35
--- NOTE | 2016-05-19 15:36 | PN ---
Date/Time of Note Date/Time of Note DATE: 05/19/16 TIME: 15:35 Assessment/Plan Lines/Catheters IV Catheter Type (from [facility]): Saline Lock Blackmon in Place (from [facility]): Yes Assessment/Plan Chief Complaint/Hosp Course 1. Perianal abscesses of unknown etiology. The patient reports that has been going on for a long time and he is refusing any surgical intervention. He only wants Sitz baths. -Sitz baths -Antibiotics -Local care. -Debridement recommended but pt refusing -Needs eventual colonoscopy 2. Urinary retention with benign prostatic hypertrophy, status post Blackmon and Flomax. Urology following. 3. Pyelonephritis, status post antibiotics. 4. Leukocytosis with possible sepsis, improving with pyelonephritis and perianal abscesses. Treatment as above. 5. Anemia without evidence of acute blood loss, continue monitoring. 6. Hypoalbuminemia is multifactorial; however, will benefit from nutritional optimization. 7. Acute renal failure has improved, probably secondary to dehydration. Continue judicious fluid management and avoid nephrotoxic agents. 8. Hypothyroidism. Continue medical management. 9. Psychiatric disorder, on medications. Continue medical optimization. Thank you Problems: Subjective 24 Hr Interval Summary No fevers or chills. No nausea vomiting. Minimal buttock pain. No headache. No visual changes. No dysuria however has a Blackmon. No abdominal pain. Still refusing surgery. No cough. No seizure. No rashes. Exam/Review of Systems Vital Signs Vitals Vital Signs Date Time Temp Pulse Resp B/P Pulse Ox O2 Delivery O2 Flow Rate FiO2 05/19/16 08:47 98.7 63 16 102/58 99 05/17/16 17:11 21 05/17/16 10:11 Room Air Intake and Output 05/18/16 05/18/16 05/19/16 14:59 22:59 06:59 Intake Total 1180 ml 720 ml Output Total 1300 ml 720 ml Balance -120 ml 0 ml Exam Free Text/Dictation GENERAL: No acute distress, pleasant, and interactive. HEENT: Pupils equal, reactive. No scleral icterus. Mucous membranes are moist appearing. DENTAL: Missing some teeth. NECK: Supple, no crepitus, no JVD. PULMONARY: Normal respiratory effort. CARDIAC: S1, S2 present. ABDOMEN: Soft, nontender. EXTREMITIES: No edema. VASCULAR: Cap refill less than 2 seconds. GENITOURINARY: Blackmon in place. RECTAL: Indurated perianal region with fluctuance and purulent discharge bilaterally. Rectal exam without any fluctuance or induration or tenderness within the canal. VASCULAR: Cap refill less than 2 seconds. NEUROLOGICAL: Alert, oriented, moves all 4 extremities grossly. SKIN: No rashes. No jaundice. Perianal induration and abscesses Results Result Diagram: 05/17/16 0605 05/17/16 0605 SHARMILA CANSECO MD May 19, 2016 15:36
--- NOTE | 2016-05-19 16:19 | PN ---
DATE: 05/19/2016 SUBJECTIVE: Patient seen. The patient with no complaints. The patient is ambulating. Case discus sed with pillowcase cutter regarding placement. Unfortunately, the patient needs to have Blackmon catheter placed. He also has been refusing I and D of his multiple perirectal abscesses. This is quite chal lenging to care for him. I am concerned that without a debridement the infection will recur. PHYSICAL EXAMINATION: VITAL SIGNS: Blood pressure is 102/58, pulse is 62, respirations 16, temperature 98, saturation 99% on room air. GENERAL: The patient is in no acute distress. The patient is pale. HEENT: Decreased dentition. CARDIOVASCULAR: S1, S2, regular rate. LUNGS: Clear. ABDOMEN: Soft, nontender. EXTREMITIES: No clubbing, cyanosis, or edema. LABORATORY DATA: No new labs today. Labs 05/17/2016 was all reviewed. Hemoglobin was 10.3, white count was normal at 7.9. BUN and creatinine were 23/1.21. Repeat urine culture dated 05/2016 is king aceves. MEDICATIONS: Reviewed including the followin. Ertapenem 1 gram q.24h. 2. Xarelto 10 mg with dinner for DVT prophylaxis. 3. Flagyl 500 q. 8h. 4. Synthroid 125 mcg daily. 5. Flomax 0.4 at bedtime. 6. Depakote 500 b.i.d. 7. Zyprexa 5 mg b.i.d. 8. Protonix 40 mg daily. 9. Zofran p.r.n. 10. Tylenol p.r.n. 11. [place] p.r.n. 12. Morphine p.r.n. 13. Colace p.r.n. 14. Milk of magnesia p.r.n. 15. Ambien p.r.n. ASSESSMENT AND PLAN: This is a 70-year-old -[place] male with history of psychiatric disord er, urinary retention, benign prostatic hypertrophy, multiple perirectal abscesses, chronic obstruct rose pulmonary disease, who presented with pyelonephritis, urinary tract infection, urinary retention , sepsis and multiple infected perirectal abscess. 1. Urinary tract infection and pyelonephritis. Remains on ertapenem. Possible need for antibiotic s 4 more days. The patient's Blackmon was removed on at least 2 occasions and he unfortunately continu es to have urinary retention despite treatment of his urinary tract infection. Blackmon to remain in pl an. Definitely will likely need a transurethral resection of prostate. The patient is in the mean time refusing all the procedures. 2. Multiple perirectal abscess. Again refusing incision and drainage. Continue antibiotic managem ent. Plan for about 4 more days of IV antibiotics. Continue supportive care and wound care if the patient will allow. 3. Activity as tolerated. 4. Hypothyroidism on Synthroid. Follow up TSH in a few weeks. 5. Renal insufficiency. Remains stable. Follow up kidney function in the a.m. 6. Psychiatric disorder. Continue Depakote and Zyprexa. 7. Continue Xarelto for deep venous thrombosis prophylaxis. 8. Awaiting placement. Plan to follow up a.m. labs and the patient can be discharged once bed is a vailable at the retirement facility. Dictated By: CHRISTINE MALDONADO/ROLANDO Conf#: [id number] DID#: [id number]
--- NOTE | 2016-05-19 17:52 | CONS ---
Date/Time of Note Date/Time of Note DATE: 05/19/16 TIME: 17:50 Assessment/Plan Assessment/Plan Additional Assessment/Plan Additional Assessment/Plan Additional Assessment/Plan IMPRESSION: 1. Multiple perirectal abscesses. 2. Pyelonephritis. 3. Urinary retention. 4. Psychiatric disorder. 5. Chronic obstructive pulmonary disease. 6. Hypothyroidism. 7. Anemia. Plan Continue present care Patient declined rectal examination. IBD serology came positive for Crohn's disease colonoscopy if pt agrees if patient does not agree for colonoscopy he definitely needs MR enterography. If MR enterography is positive for Crohn's disease then we should start this patient on biological agent Consultation Date/Type/Reason Admit Date/Time May 09, 2016 at 19:32 Type of Consultation: ID [id number] HR Interval Summary Constitutional: no complaints Exam/Review of Systems Vital Signs Vitals Vital Signs Date Time Temp Pulse Resp B/P Pulse Ox O2 Delivery O2 Flow Rate FiO2 05/19/16 08:47 98.7 63 16 102/58 99 05/17/16 17:11 21 05/17/16 10:11 Room Air Intake and Output 05/18/16 05/18/16 05/19/16 15:00 23:00 07:00 Intake Total 1180 ml 720 ml Output Total 1300 ml 720 ml Balance -120 ml 0 ml Exam Constitutional: alert, oriented, well developed Psych: nl mood/affect, no complaints Head: atraumatic, normocephalic Eyes: EOMI, PERRL, nl conjunctiva, nl lids, nl sclera ENMT: nl external ears & nose, nl lips & teeth, nl nasal mucosa & septum Neck: non-tender, supple Respiratory: clear to auscultation, normal air movement Cardiovascular: nl pulses, regular rate and rhythm Gastrointestinal: nl liver, spleen, non-tender, soft Musculoskeletal: nl extremities to inspection, nl gait and stance Extremities: normal pulses Neurological: WASHROOM OPERATOR II-XII intact, nl mental status, nl speech, nl strength Skin: nl turgor, No rash or lesions Lymph: nl lymph nodes Results Result Diagram: 05/17/1660405/17/16604 Medications Medications Current Medications Guaifenesin/ Codeine Phosphate (Robitussin Ac Liquid Cup) 5 ml Q4H PRN PO cough ; Start 05/09/16 at 22:30 Ondansetron HCl (Zofran Inj) 4 mg Q6H PRN IV NAUSEA AND/OR VOMITING; Start at 23:30 Acetaminophen (Tylenol Tab) 650 mg Q6H PRN PO PAIN LEVEL 1-3 OR FEVER; Start at 23:30 Acetaminophen/ Hydrocodone Bitart (Covel (5/325)) 1 tab Q6H PRN PO MODERATE PAIN LEVEL 4-6 Last administered on 05/13/16 04:47; Admin Dose 1 TAB; Start at 23:30 Morphine Sulfate (morphine) 2 mg Q4H PRN IV SEVERE PAIN LEVEL 7-10 Last administered on 05/10/16 02:45; Admin Dose 2 MG; Start 05/09/16 at 23:30 Docusate Sodium (Colace) 100 mg Q12H PRN PO CONSTIPATION; Start 05/09/16 at 23: 30 Magnesium Hydroxide (Milk Of Mag) 30 ml DAILY PRN PO CONSTIPATION; Start at 23:30 Zolpidem Tartrate (Ambien) 5 mg QHS PRN PO SLEEP; Start 05/09/16 at 23:30 Pantoprazole (Protonix Tab) 40 mg DAILY@06 PO Last administered on 05/19/16 06: 24; Admin Dose 40 MG; Start 05/10/16 at 06:00 Divalproex Sodium (Depakote) 500 mg BID PO Last administered on 05/19/16 11:07 ; Admin Dose 500 MG; Start 05/10/16 at 09:00 Olanzapine (Zyprexa) 5 mg BID PO Last administered on 05/19/16 11:07; Admin Dose 5 MG; Start 05/10/16 at 09:00 Tamsulosin HCl (Flomax) 0.4 mg HS PO Last administered on 05/18/16 21:05; Admin Dose 0.4 MG; Start 05/10/16 at 21:00 Metronidazole 500 mg 500 mg Q8 PO Last administered on 05/19/16 15:07; Admin Dose 500 MG; Start 05/12/16 at 15:30 Ertapenem/Sodium Chloride (Invanz/NS) 100 ml @ 200 mls/hr Q24H IVPB Last administered on 05/19/16 15:07; Admin Dose 200 MLS/HR; Start 05/15/16 at 14:00 KEELEY GUERRA MD May 19, 2016 17:51
[2016-05-19] MEDS: RIVAROXABAN 10 MG TABLET PO SCH (17:59)
[2016-05-19 20:11] VITALS: BP 92/53; RESP 20
[2016-05-19] MEDS: TAMSULOSIN (SR) 0.4 MG CAP PO SCH (21:04)
[2016-05-19] MEDS: HYDROCODONE/APAP (5/325) TAB PO PRN (22:31)
--- NOTE | 2016-05-20 04:34 | PN ---
DATE: 05/19/2016 SUBJECTIVE: Urinary retention, urinary tract infection, perirectal abscesses. The patient states t hat he is doing well and he wants to go to the assisted living place. OBJECTIVE VITAL SIGNS: His temperature is 98.7, blood pressure 102/58, pulse 63, respirations 16. ABDOMEN: Soft. LABORATORY DATA: Last CBC shows a white count of 7.9, hemoglobin 10.3, hematocrit 33.2. BUN is 23, creatinine 1.21. The urine culture showing Escherichia coli extended-spectrum beta-lactamase before but the latest urine culture from 05/14/2016 showed no growth after 48 hours. IMPRESSION: Urinary retention. RECOMMENDATIONS: The patient has a urinary tract infection which has resolved. However, removing th e Blackmon catheter for an attempt to see if he does void on more than one occasions were not successfu l and ended up needing the Blackmon catheter back in. Therefore, recommendation is to keep the Blackmon catheter in and change it as needed or at least once a month. Dictated By: UCHE MCCABE/ROLANDO Conf#: [id number] DID#: [id number]
[2016-05-20 06:24] LABS: ADD SCAN DIFF NO
[2016-05-20] MEDS: PANTOPRAZOLE (EC) 40 MG TAB PO SCH (06:26)
[2016-05-20] MEDS: LEVOTHYROXINE 125 MCG TAB PO SCH (06:26)
[2016-05-20] MEDS: metroNIDAZOLE 500 MG TAB PO SCH ×3 (06:26→21:05)
[2016-05-20 06:36] LABS: POTASSIUM 4.3 mmol/L (3.5-5.1)
[2016-05-20 06:39] LABS: CREATININE 1.23 mg/dl (0.61-1.24)
[2016-05-20 06:40] LABS: CALCIUM 9.1 mg/dl (8.4-10.2)
[2016-05-20 07:10] LABS: PHOSPHORUS 3.8 mg/dl (2.5-4.9)
[2016-05-20 07:11] LABS: MAGNESIUM 1.7 mg/dl (1.7-2.5)
[2016-05-20 07:21] LABS: BASOPHILS % 0.6 % (0.0-2.0); EOSINOPHILS # 0.3 10^3/ul (0.0-0.5); EOSINOPHILS % 3.7 % (0.0-7.0); HEMATOCRIT 32.3 % (42.0-52.0); HEMOGLOBIN 9.6 g/dl (14.0-18.0); LYMPHOCYTES # 2.8 10^3/ul (0.8-2.9); LYMPHOCYTES % 38.3 % (15.0-51.0); MEAN CORPUSCULAR HEMOGLOBIN 25.1 pg (29.0-33.0); MEAN CORPUSCULAR HGB CONC 29.7 g/dl (32.0-37.0); MEAN CORPUSCULAR VOLUME 84.6 fl (82.0-101.0); MEAN PLATELET VOLUME 9.5 fl (7.4-10.4); MONOCYTE # 0.4 10^3/ul (0.3-0.9); MONOCYTES % 5.2 % (0.0-11.0); NEUTROPHIL # 3.8 10^3/ul (1.6-7.5); NEUTROPHILS % 51.9 % (39.0-77.0); PLATELET COUNT 431 10^3/UL (140-415); RED BLOOD COUNT 3.82 10^6/ul (4.70-6.10); WHITE BLOOD COUNT 7.2 10^3/ul (4.8-10.8)
[2016-05-20 08:15] VITALS: BP 102/54; RESP 22
[2016-05-20] MEDS: DIVALPROEX (EC) 500 MG TAB PO SCH ×2 (10:43→21:05)
[2016-05-20] MEDS: OLANZAPINE 5 MG TAB PO SCH ×2 (10:43→21:05)
--- NOTE | 2016-05-20 15:19 | PN ---
DATE: 05/20/2016 The patient was seen. No complaints. The patient is awaiting placement. PHYSICAL EXAMINATION: VITAL SIGNS: Temperature 98, pulse 60, respirations 22, blood pressure 102/54, saturations 98%. GENERAL: In no acute distress. The patient is pale. Decreased . CARDIOVASCULAR: Positive S1, S2, regular rate and rhythm. LUNGS: Clear bilaterally. ABDOMEN: Soft, nontender. EXTREMITIES: No clubbing, cyanosis, or edema. Blackmon to gravity. LABORATORY: White count 7.2, hemoglobin 9.6, hematocrit 32, platelet count 431, neutrophils 62%, ly mphocytes 38%. Chemistry: Sodium is 142, potassium 4.3, chloride 105, bicarbonate 25, BUN is 25, c reatinine 1.23, glucose of 105. MEDICATIONS: Includes: 1. Ertapenem 1 gram q.24 hours. 2. Xarelto 10 mg with dinner. 3. Flagyl 500 q.8. 4. Synthroid mcg 125 daily. 5. Flomax 0.4 at bedtime. 6. Depakote 500 b.i.d. 7. Zyprexa 5 b.i.d. 8. Protonix 40 mg daily. 9. Zofran p.r.n. 10. Tylenol p.r.n. 11. [place] p.r.n. 12. Morphine p.r.n. 13. Colace p.r.n. 14. Milk of Magnesia p.r.n. 15. Ambien p.r.n. 16. Robitussin p.r.n. ASSESSMENT AND PLAN: This is an unfortunate 70-year-old -[place] male with a history of psy chiatric disorder, urinary retention, BPH, multiple perirectal abscesses and COPD, who presented wit h pyelonephritis, UTI, urinary retention, sepsis and multiple infected perirectal abscesses. 1. Urinary tract infection. On ertapenem. Repeat urine culture is negative. 2. Multiple perirectal abscesses. Again, also on the above antibiotics, to complete the course of a ntibiotics soon. The patient has been refusing incision and drainage, and sometimes wound care. 3. Urinary retention. Continue Blackmon to gravity. 4. Hypothyroidism. I decreased the dose of Synthroid. Follow up TSH. 5. Renal insufficiency. Stable. Monitor electrolytes. 6. Psychiatric disorder. Continue Depakote and Zyprexa. 7. Continue Xarelto for DVT prophylaxis. No active bleeding. 8. Awaiting placement at the senior care facility, as the patient needs wound care to the recta l area and he currently has a Blackmon which needs to be monitored. 9. Workup for Crohn's disease is in progress. The patient not very compliant with procedures. Overall the patient is stable for discharge to a senior care facility when a bed is available. Dictated By: CHRISTINE MALDONADO/ROLANDO Conf#: [id number] DID#: [id number]
--- NOTE | 2016-05-20 15:35 | PN ---
DATE: 05/20/2016 SUBJECTIVE: Urinary retention and urinary tract infection. Perirectal abscess. The patient states that he is feeling better and he has no pain. OBJECTIVE VITAL SIGNS: His temperature is 98.0, blood pressure 102/54, respiration is 22, pulse is 60. ABDOMEN: Soft. There is no abdominal tenderness. The Blackmon catheter that he has is draining clear urine. LABORATORY DATA: CBC shows a white count of 7.2, hemoglobin 9.6, hematocrit 32.3. The platelet cou nt 431,000. BUN is 25, creatinine 1.23. Electrolytes are normal. Last urine culture from 05/15/19 17 showed no growth after 48 hours. Aeration of urine culture did show E. coli ESBL and that is why he has been treated with antibiotic. Prior attempts to remove the Blackmon catheter and see if he can u rinate were done and were not successful; therefore him requiring to have the Blackmon catheter back. RECOMMENDATION: Keep the Blackmon catheter in and change it as needed or at least once a month. Dictated By: UCHE MCCABE/ROLANDO Conf#: [id number] DID#: [id number]
[2016-05-20] MEDS: ERTAPENEM SODIUM 1 GM in SOD CHLORIDE 0.9% 100 ML IVPB SCH (15:38)
[2016-05-20] MEDS: RIVAROXABAN 10 MG TABLET PO SCH (18:05)
[2016-05-20 20:00] VITALS: BP 109/64; RESP 20
[2016-05-20] MEDS: TAMSULOSIN (SR) 0.4 MG CAP PO SCH (21:05)
[2016-05-21] MEDS: PANTOPRAZOLE (EC) 40 MG TAB PO SCH (06:24)
[2016-05-21] MEDS: LEVOTHYROXINE 125 MCG TAB PO SCH (06:24)
[2016-05-21] MEDS: metroNIDAZOLE 500 MG TAB PO SCH ×3 (06:24→21:49)
[2016-05-21 07:40] VITALS: BP 91/51; RESP 18
[2016-05-21] MEDS: DIVALPROEX (EC) 500 MG TAB PO SCH ×2 (08:51→21:49)
[2016-05-21] MEDS: OLANZAPINE 5 MG TAB PO SCH ×2 (08:51→21:49)
[2016-05-21] MEDS: ERTAPENEM SODIUM 1 GM in SOD CHLORIDE 0.9% 100 ML IVPB SCH (14:32)
--- NOTE | 2016-05-21 15:01 | PN ---
DATE: 05/21/2016 SUBJECTIVE: The patient seen. The patient with no complaints, lying in bed comfortably. The patie nt overall appetite is adequate. PHYSICAL EXAMINATION: VITAL SIGNS: Temperature 98.5, pulse 73, respirations 18, blood pressure 91/51, saturation 96% on r oom air. GENERAL: The patient is in no acute distress. The patient is pale. CARDIOVASCULAR: S1, S2. Regular rate. LUNGS: Clear. ABDOMEN: Soft, nontender. EXTREMITIES: No clubbing, cyanosis, or edema. He does have a Blackmon to gravity. LABORATORY DATA: White count 7.2, hemoglobin 9.6, hematocrit 32, platelet count of 431 with normal differential. This was from yesterday. BUN and creatinine yesterday was 25 and 1.23. MEDICATIONS: The patient's medications include the following 1. Ertapenem 1 g q.24 hours. 2. Xarelto 10 mg with dinner. 3. Flagyl 500 q.8h. 4. Synthroid 125 mcg daily. 5. Flomax 0.4 at bedtime. 6. Depakote 500 b.i.d. 7. Zyprexa 5 mg b.i.d. 8. Protonix 40 mg daily. 9. Zofran p.r.n. 10. Tylenol p.r.n. 11. [place] p.r.n. 12. Morphine p.r.n. 13. Colace p.r.n. 14. Milk of magnesia p.r.n. 15. Ambien p.r.n. ASSESSMENT AND PLAN: This is a very unfortunate 70-year-old -[place] male with history of psychiatric disorder, u rinary retention, BPH, multiple perirectal abscesses and COPD, who presented with pyelonephritis, UT I, urinary retention, sepsis and multiple infected perirectal abscesses. 1. Urinary tract infection. Finish treatment as he is on ertapenem. Repeat urine culture is negat rose. 2. Multiple perirectal abscesses again on ertapenem. The patient is to complete a course of antibi otics soon. ID is following. The patient has refused I and D, refused wound changes at times. 3. Urinary retention. Unfortunately, we were unable to remove the Blackmon as he continues to have re tention. Change Blackmon catheter q. monthly. I appreciate Dr. Espinoza's input. 4. Renal insufficiency, stable. Monitor electrolytes periodically. 5. Psychiatric disorder. Continue Depakote and Zyprexa. 6. Xarelto for DVT prophylaxis as I see him mostly in bed. 7. Awaiting placement at the [facility] facility. manager medical device is assisting. 8. Workup for Crohn's disease is in progress. Overall, we do recommend a colonoscopy. Dr. Washington i s following. The patient overall is noncompliant with recommendation or procedures. We will contin ue to monitor him closely. 9. The patient is on Protonix for GI prophylaxis and Xarelto for deep venous thrombosis prophylaxis . Dictated By: CHRISTINE MALDONADO/ROLANDO Conf#: [id number] DID#: [id number]
[2016-05-21] MEDS: RIVAROXABAN 10 MG TABLET PO SCH (17:39)
--- NOTE | 2016-05-21 19:53 | PN ---
Date/Time of Note Date/Time of Note DATE: 05/20/16 TIME: 19:51 Assessment/Plan Lines/Catheters IV Catheter Type (from [facility]): Saline Lock Blackmon in Place (from [facility]): Yes Assessment/Plan Chief Complaint/Hosp Course 1. Perianal abscesses of unknown etiology. The patient reports that has been going on for a long time and he is refusing any surgical intervention. He only wants Sitz baths. -Sitz baths -Antibiotics -Local care. -Debridement recommended but pt refusing -Needs eventual colonoscopy 2. Urinary retention with benign prostatic hypertrophy, status post Blackmon and Flomax. Urology following. 3. Pyelonephritis, status post antibiotics. 4. Leukocytosis with possible sepsis, improving with pyelonephritis and perianal abscesses. Treatment as above. 5. Anemia without evidence of acute blood loss, continue monitoring. 6. Hypoalbuminemia is multifactorial; however, will benefit from nutritional optimization. 7. Acute renal failure has improved, probably secondary to dehydration. Continue judicious fluid management and avoid nephrotoxic agents. 8. Hypothyroidism. Continue medical management. 9. Psychiatric disorder, on medications. Continue medical optimization. Thank you Late entry 05/20 Problems: Subjective 24 Hr Interval Summary No fevers or chills. No nausea vomiting. Minimal buttock pain. No headache. No visual changes. No dysuria however has a Blackmon. No abdominal pain. Still refusing surgery. No cough. No seizure. No rashes. Exam/Review of Systems Vital Signs Vitals Vital Signs Date Time Temp Pulse Resp B/P Pulse Ox O2 Delivery O2 Flow Rate FiO2 05/21/16 07:40 98.5 73 18 91/51 96 05/17/16 17:11 21 05/17/16 10:11 Room Air Intake and Output 05/20/16 05/20/16 05/21/16 15:00 23:00 07:00 Intake Total 940 ml Output Total 1100 ml Balance -160 ml Exam Free Text/Dictation GENERAL: No acute distress, pleasant, and interactive. HEENT: Pupils equal, reactive. No scleral icterus. Mucous membranes are moist appearing. Missing teeth. NECK: Supple, no crepitus, no JVD. PULMONARY: Normal respiratory effort. CARDIAC: S1, S2 present. ABDOMEN: Soft, nontender. EXTREMITIES: No edema. VASCULAR: Cap refill less than 2 seconds. GENITOURINARY: Blackmon in place. RECTAL: Indurated perianal region with fluctuance and purulent discharge bilaterally. Rectal exam without any fluctuance or induration or tenderness within the canal. VASCULAR: Cap refill less than 2 seconds. NEUROLOGICAL: Alert, oriented, moves all 4 extremities grossly. SKIN: No rashes. No jaundice. Perianal induration and abscesses Results Result Diagram: 05/20/16 0548 05/20/16 0548 SHARMILA CANSECO MD May 21, 2016 19:53
--- NOTE | 2016-05-21 19:55 | PN ---
Date/Time of Note Date/Time of Note DATE: 05/21/16 TIME: 19:55 Assessment/Plan Lines/Catheters IV Catheter Type (from [facility]): Saline Lock Blackmon in Place (from [facility]): Yes Assessment/Plan Chief Complaint/Hosp Course 1. Perianal abscesses of unknown etiology. The patient reports that has been going on for a long time and he is refusing any surgical intervention. He only wants Sitz baths. -Sitz baths -Antibiotics -Local care. -Debridement recommended but pt refusing -Needs eventual colonoscopy 2. Urinary retention with benign prostatic hypertrophy, status post Blackmon and Flomax. Urology following. 3. Pyelonephritis, status post antibiotics. 4. Leukocytosis with possible sepsis, improving with pyelonephritis and perianal abscesses. Treatment as above. 5. Anemia without evidence of acute blood loss, continue monitoring. 6. Hypoalbuminemia is multifactorial; however, will benefit from nutritional optimization. 7. Acute renal failure has improved, probably secondary to dehydration. Continue judicious fluid management and avoid nephrotoxic agents. 8. Hypothyroidism. Continue medical management. 9. Psychiatric disorder, on medications. Continue medical optimization. Thank you Problems: Subjective 24 Hr Interval Summary No fevers or chills. No nausea vomiting. Minimal buttock pain. No headache. No visual changes. No dysuria however has a Blackmon. No abdominal pain. Still refusing surgery. No cough. No seizure. No rashes. Exam/Review of Systems Vital Signs Vitals Vital Signs Date Time Temp Pulse Resp B/P Pulse Ox O2 Delivery O2 Flow Rate FiO2 05/21/16 07:40 98.5 73 18 91/51 96 05/17/16 17:11 21 05/17/16 10:11 Room Air Intake and Output 05/20/16 05/20/16 05/21/16 15:00 23:00 07:00 Intake Total 940 ml Output Total 1100 ml Balance -160 ml Exam Free Text/Dictation GENERAL: No acute distress, pleasant, and interactive. HEENT: Pupils equal, reactive. No scleral icterus. Mucous membranes are moist appearing. Missing teeth. NECK: Supple, no crepitus, no JVD. PULMONARY: Normal respiratory effort. CARDIAC: S1, S2 present. ABDOMEN: Soft, nontender. EXTREMITIES: No edema. VASCULAR: Cap refill less than 2 seconds. GENITOURINARY: Blackmon in place. RECTAL: Indurated perianal region with fluctuance and purulent discharge bilaterally. Rectal exam without any fluctuance or induration or tenderness within the canal. VASCULAR: Cap refill less than 2 seconds. NEUROLOGICAL: Alert, oriented, moves all 4 extremities grossly. SKIN: No rashes. No jaundice. Perianal induration and abscesses Results Result Diagram: 05/20/16 0548 05/20/16 0548 SHARMILA CANSECO MD May 21, 2016 19:55
[2016-05-21 20:00] VITALS: BP 137/62; RESP 20
[2016-05-21] MEDS: TAMSULOSIN (SR) 0.4 MG CAP PO SCH (21:49)
[2016-05-22] MEDS: LEVOTHYROXINE 125 MCG TAB PO SCH (06:47)
[2016-05-22] MEDS: metroNIDAZOLE 500 MG TAB PO SCH ×3 (06:47→23:06)
[2016-05-22] MEDS: PANTOPRAZOLE (EC) 40 MG TAB PO SCH (06:47)
[2016-05-22 07:37] VITALS: BP 111/51; RESP 20
[2016-05-22] MEDS: OLANZAPINE 5 MG TAB PO SCH ×2 (08:30→23:05)
[2016-05-22] MEDS: DIVALPROEX (EC) 500 MG TAB PO SCH ×2 (08:30→23:06)
--- NOTE | 2016-05-22 13:15 | PN ---
DATE: 05/22/2016 SUBJECTIVE: Patient seen. Overall appears to be comfortable. Patient with no complaints. Case di scussed with watch case polisher regarding placement. This patient will need a senior care facility as he has a Blackmon and extensive perirectal wound because of his microabscesses, etc. PHYSICAL EXAMINATION: VITAL SIGNS: Temperature 98.1, pulse 60, respirations 20, blood pressure 111/51, saturation 98%. GENERAL: The patient is in no acute distress. The patient is pale. CARDIOVASCULAR: S1, S2, regular rate. LUNGS: Clear. ABDOMEN: Soft, nontender. EXTREMITIES: No clubbing, cyanosis, or edema. LABORATORY DATA: No new labs today. Last labs on 05/20/2016 reviewed. MEDICATIONS: Reviewed include: 1. Ertapenem 1 gram every 24 hours. 2. Xarelto 10 mg with dinner. 3. Flagyl 500 at bedtime. 4. Synthroid 125 mcg daily. 5. Flomax 0.4 at bedtime. 6. Depakote 500 b.i.d. 7. Depakote 5 b.i.d. 8. Protonix 40 mg daily. 9. Zofran p.r.n. 10. Tylenol p.r.n. 11. [place] p.r.n. 12. Morphine p.r.n. 13. Colace. 14. Milk of magnesia p.r.n. 15. Ambien p.r.n. 16. Robitussin p.r.n. ASSESSMENT AND PLAN: This is a 70-year-old male with history of psychiatric disord er, urinary retention, BPH, multiple perirectal abscess and COPD who presented with UTI, urinary ret ention, sepsis, multiple infected perirectal abscesses. 1. Urinary tract infection. Finish the course for antibiotics. Repeat urine culture is negative. 2. Urinary retention. Blackmon is in place. The patient refusing TURP will change the Blackmon every mo nth. Urology is following. 3. Multiple perirectal abscesses. Refusing I and D on antibiotic management. Continue to observe, wound care to be provided. 4. Psychiatric disorder on Depakote and Zyprexa. 5. On Xarelto 10 mg daily for DVT prophylaxis as he is refusing injections of heparin or Lovenox. 6. Awaiting placement at the senior care facility. talent acquisition operations manager is following. 7. Workup for Crohn's disease will be recommended including a colonoscopy. The patient overall not very compliant with recommendation. Dr. Washington is following. IBD serologies were sent, awaiting r esults. We will follow closely. Dictated By: CHRISTINE MALDONADO/ROLANDO Conf#: [id number] DID#: [id number]
--- NOTE | 2016-05-22 13:36 | PN ---
DATE: 05/22/2016 SUBJECTIVE: No acute changes. Patient is alert, lying comfortably in bed. Denies pain. No fevers . ANTIMICROBIALS: He is on: 1. Invanz 2. Flagyl. PHYSICAL EXAMINATION: GENERAL: Well-developed, elderly man who is in no distress. HEENT: Head atraumatic, normocephalic. Sclerae anicteric. Buccal mucosa dry. NECK: Supple. CHEST: Rise symmetrical. Breath sounds clear. HEART: S1, S2. ABDOMEN: Soft, bowel tones present. EXTREMITIES: No cyanosis. ASSESSMENT: 1. Status post urinary tract infection, acute pyelonephritis. 2. Urinary retention. 3. Perianal abscess refused surgical intervention. 4. History of psych. 5. Status post-acute renal failure. PLAN: The patient remains stable. Completing antibiotics for pyelonephritis, surgery, urology foll ows him. We will follow their recommendations. Dictated By: [employer]OCIATE for PATRICK MCLEOD/ROLANDO Conf#: [id number] DID#: [id number]
--- NOTE | 2016-05-22 14:45 | CONS ---
Date/Time of Note Date/Time of Note DATE: 05/22/16 TIME: 14:44 Assessment/Plan Assessment/Plan Additional Assessment/Plan Additional Assessment/Plan Additional Assessment/Plan IMPRESSION: 1. Multiple perirectal abscesses. 2. Pyelonephritis. 3. Urinary retention. 4. Psychiatric disorder. 5. Chronic obstructive pulmonary disease. 6. Hypothyroidism. 7. Anemia. Plan Continue present care Patient declined rectal examination. IBD serology came positive for Crohn's disease colonoscopy if pt agrees if patient does not agree for colonoscopy he definitely needs MR enterography. If MR enterography is positive for Crohn's disease then we should start this patient on biological agent Consultation Date/Type/Reason Admit Date/Time May 09, 2016 at 19:32 Type of Consultation: ID [id number] HR Interval Summary Constitutional: no complaints Exam/Review of Systems Vital Signs Vitals Vital Signs Date Time Temp Pulse Resp B/P Pulse Ox O2 Delivery O2 Flow Rate FiO2 05/22/16 07:37 98.1 60 20 111/51 98 Intake and Output 05/21/16 05/21/16 05/22/16 15:00 23:00 07:00 Intake Total 580 ml 840 ml 600 ml Output Total 1200 ml 900 ml 450 ml Balance -620 ml -60 ml 150 ml Exam Constitutional: alert, oriented, well developed Psych: nl mood/affect, no complaints Head: atraumatic, normocephalic Eyes: EOMI, PERRL, nl conjunctiva, nl lids, nl sclera ENMT: nl external ears & nose, nl lips & teeth, nl nasal mucosa & septum Neck: non-tender, supple Respiratory: clear to auscultation, normal air movement Cardiovascular: nl pulses, regular rate and rhythm Gastrointestinal: nl liver, spleen, non-tender, soft Musculoskeletal: nl extremities to inspection, nl gait and stance Extremities: normal pulses Neurological: EQUAL OPPORTUNITY OFFICER II-XII intact, nl mental status, nl speech, nl strength Skin: nl turgor, No rash or lesions Lymph: nl lymph nodes Results Result Diagram: 05/20/1648 05/20/1648 Medications Medications Current Medications Guaifenesin/ Codeine Phosphate (Robitussin Ac Liquid Cup) 5 ml Q4H PRN PO cough ; Start 05/09/16 at 22:30 Ondansetron HCl (Zofran Inj) 4 mg Q6H PRN IV NAUSEA AND/OR VOMITING; Start at 23:30 Acetaminophen (Tylenol Tab) 650 mg Q6H PRN PO PAIN LEVEL 1-3 OR FEVER; Start at 23:30 Acetaminophen/ Hydrocodone Bitart ([place] (5/325)) 1 tab Q6H PRN PO MODERATE PAIN LEVEL 4-6 Last administered on 05/19/16 22:31; Admin Dose 1 TAB; Start at 23:30 Morphine Sulfate (morphine) 2 mg Q4H PRN IV SEVERE PAIN LEVEL 7-10 Last administered on 05/10/16 02:45; Admin Dose 2 MG; Start 05/09/16 at 23:30 Docusate Sodium (Colace) 100 mg Q12H PRN PO CONSTIPATION; Start 05/09/16 at 23: 30 Magnesium Hydroxide (Milk Of Mag) 30 ml DAILY PRN PO CONSTIPATION; Start at 23:30 Zolpidem Tartrate (Ambien) 5 mg QHS PRN PO SLEEP; Start 05/09/16 at 23:30 Pantoprazole (Protonix Tab) 40 mg DAILY@06 PO Last administered on 05/22/16 06 :47; Admin Dose 40 MG; Start 05/10/16 at 06:00 Divalproex Sodium (Depakote) 500 mg BID PO Last administered on 05/22/16 08:30 ; Admin Dose 500 MG; Start 05/10/16 at 09:00 Olanzapine (Zyprexa) 5 mg BID PO Last administered on 05/22/16 08:30; Admin Dose 5 MG; Start 05/10/16 at 09:00 Tamsulosin HCl (Flomax) 0.4 mg HS PO Last administered on 05/21/16 21:49; Admin Dose 0.4 MG; Start 05/10/16 at 21:00 Metronidazole 500 mg 500 mg Q8 PO Last administered on 05/22/16 06:47; Admin Dose 500 MG; Start 05/12/16 at 15:30 Ertapenem/Sodium Chloride (Invanz/NS) 100 ml @ 200 mls/hr Q24H IVPB Last administered on 05/21/16 14:32; Admin Dose 200 MLS/HR; Start 05/15/16 at 14:00 KEELEY GUERRA MD May 22, 2016 14:45
[2016-05-22] MEDS: ERTAPENEM SODIUM 1 GM in SOD CHLORIDE 0.9% 100 ML IVPB SCH (15:02)
[2016-05-22] MEDS: RIVAROXABAN 10 MG TABLET PO SCH (18:24)
--- NOTE | 2016-05-22 18:25 | PN ---
Date/Time of Note Date/Time of Note DATE: 05/22/16 TIME: 18:22 Assessment/Plan Lines/Catheters IV Catheter Type (from [facility]): Saline Lock Blackmon in Place (from [facility]): Yes Assessment/Plan Chief Complaint/Hosp Course 1. Perianal abscesses probably 2nd Crohn's. He only wants Sitz baths and refusing colonoscopy and surgery -Sitz baths -Antibiotics -Local care. -?Biologic agents for Crohn's -Needs colonoscopy 2. Urinary retention with benign prostatic hypertrophy, status post Blackmon and Flomax. Urology following. 3. Pyelonephritis, status post antibiotics. 4. Leukocytosis with possible sepsis, improving with pyelonephritis and perianal abscesses. Treatment as above. 5. Anemia without evidence of acute blood loss, continue monitoring. 6. Hypoalbuminemia is multifactorial; however, will benefit from nutritional optimization. 7. Acute renal failure has improved, probably secondary to dehydration. Continue judicious fluid management and avoid nephrotoxic agents. 8. Hypothyroidism. Continue medical management. 9. Psychiatric disorder, on medications. Continue medical optimization. Thank you Problems: Subjective 24 Hr Interval Summary IBD serology positive (Crohn's). No fevers or chills. No nausea vomiting. Minimal buttock pain. No headache. No visual changes. No dysuria however has a Blackmon. No abdominal pain. No cough. No seizure. No rashes. Refusing surgery and colonoscopy Exam/Review of Systems Vital Signs Vitals Vital Signs Date Time Temp Pulse Resp B/P Pulse Ox O2 Delivery O2 Flow Rate FiO2 05/22/16 07:37 98.1 60 20 111/51 98 Intake and Output 05/21/16 05/21/16 05/22/16 15:00 23:00 07:00 Intake Total 580 ml 840 ml 600 ml Output Total 1200 ml 900 ml 450 ml Balance -620 ml -60 ml 150 ml Exam Free Text/Dictation GENERAL: No acute distress, pleasant, and interactive. HEENT: Pupils equal, reactive. No scleral icterus. Mucous membranes are moist appearing. Missing teeth. NECK: Supple, no crepitus, no JVD. PULMONARY: Normal respiratory effort. CARDIAC: S1, S2 present. ABDOMEN: Soft, nontender. EXTREMITIES: No edema. VASCULAR: Cap refill less than 2 seconds. GENITOURINARY: Blackmon in place. RECTAL: Indurated perianal region with fluctuance and purulent discharge bilaterally. Rectal exam without any fluctuance or induration or tenderness within the canal. VASCULAR: Cap refill less than 2 seconds. NEUROLOGICAL: Alert, oriented, moves all 4 extremities grossly. SKIN: No rashes. No jaundice. Perianal induration and abscesses Results Result Diagram: 05/20/16 0548 05/20/16 0548 SHARMILA CANSECO MD May 22, 2016 18:25
[2016-05-22 20:00] VITALS: BP 101/56; RESP 16
[2016-05-22] MEDS: TAMSULOSIN (SR) 0.4 MG CAP PO SCH (23:06)
[2016-05-23] MEDS: PANTOPRAZOLE (EC) 40 MG TAB PO SCH (06:09)
[2016-05-23] MEDS: LEVOTHYROXINE 125 MCG TAB PO SCH (06:09)
[2016-05-23] MEDS: metroNIDAZOLE 500 MG TAB PO SCH ×3 (06:09→21:27)
--- NOTE | 2016-05-23 09:15 | PN ---
DATE: 05/23/2016 SUBJECTIVE: Urinary retention perirectal abscess. SOCIAL HISTORY: States that he does not want to go to [facility]. He does not want to have surgery on hi s perirectal abscesses. OBJECTIVE VITAL SIGNS: His temperature is 98.3, blood pressure 111/51 and the pulse is 66, respiration 20. ABDOMEN: Soft. There is no abdominal mass palpable. The Blackmon catheter is draining clear urine. LABORATORY DATA: The last CBC on May 20 showed a white count of 7.2, hemoglobin 9.6, BUN is 16, cr eatinine started. BUN is 25, creatinine 1.23. IMPRESSION: Urinary retention. Patient has not been able to urinate after the Blackmon catheter was r emoved and that was tried more than one time and he still has the urinary retention and apparently h e is refusing to go to [facility] for his perirectal abscess. He is already on tamsulosin. We shall cont inue that, should we again in the future try to remove the catheter and see if he does urinate. Dictated By: UCHE MCCABE/ROLANDO Conf#: [id number] DID#: [id number]
[2016-05-23] MEDS: OLANZAPINE 5 MG TAB PO SCH ×2 (09:34→21:27)
[2016-05-23] MEDS: DIVALPROEX (EC) 500 MG TAB PO SCH ×2 (09:34→21:27)
--- NOTE | 2016-05-23 11:34 | CONS ---
Date/Time of Note Date/Time of Note DATE: 05/23/16 TIME: 11:34 Assessment/Plan Assessment/Plan Additional Assessment/Plan Additional Assessment/Plan IMPRESSION: 1. Multiple perirectal abscesses. 2. Pyelonephritis. 3. Urinary retention. 4. Psychiatric disorder. 5. Chronic obstructive pulmonary disease. 6. Hypothyroidism. 7. Anemia. Plan Continue present care Patient declined rectal examination. IBD serology came positive for Crohn's disease colonoscopy if pt agrees if patient does not agree for colonoscopy he definitely needs MR enterography. If MR enterography is positive for Crohn's disease then we should start this patient on biological agent Patient has agreed for MRI. Consultation Date/Type/Reason Admit Date/Time May 09, 2016 at 19:32 Type of Consultation: ID 24 HR Interval Summary Constitutional: no complaints Exam/Review of Systems Vital Signs Vitals Vital Signs Date Time Temp Pulse Resp B/P Pulse Ox O2 Delivery O2 Flow Rate FiO2 05/22/16 20:00 98.3 66 16 101/56 99 Intake and Output 05/22/16 05/22/16 05/23/16 15:00 23:00 07:00 Intake Total 1820 ml 210 ml Output Total 900 ml 650 ml Balance 920 ml -440 ml Exam Constitutional: alert, oriented, well developed Psych: nl mood/affect, no complaints Head: atraumatic, normocephalic Eyes: EOMI, PERRL, nl conjunctiva, nl lids, nl sclera ENMT: nl external ears & nose, nl lips & teeth, nl nasal mucosa & septum Neck: non-tender, supple Respiratory: clear to auscultation, normal air movement Cardiovascular: nl pulses, regular rate and rhythm Gastrointestinal: nl liver, spleen, non-tender, soft Musculoskeletal: nl extremities to inspection, nl gait and stance Extremities: normal pulses Neurological: TESTER COMPRESSED GASES II-XII intact, nl mental status, nl speech, nl strength Skin: nl turgor, No rash or lesions Lymph: nl lymph nodes Results Result Diagram: 05/20/1648 05/20/16547 Medications Medications Current Medications Guaifenesin/ Codeine Phosphate (Robitussin Ac Liquid Cup) 5 ml Q4H PRN PO cough ; Start 05/09/16 at 22:30 Ondansetron HCl (Zofran Inj) 4 mg Q6H PRN IV NAUSEA AND/OR VOMITING; Start at 23:30 Acetaminophen (Tylenol Tab) 650 mg Q6H PRN PO PAIN LEVEL 1-3 OR FEVER; Start at 23:30 Acetaminophen/ Hydrocodone Bitart ([place] (5/325)) 1 tab Q6H PRN PO MODERATE PAIN LEVEL 4-6 Last administered on 05/19/16 22:31; Admin Dose 1 TAB; Start at 23:30 Morphine Sulfate (morphine) 2 mg Q4H PRN IV SEVERE PAIN LEVEL 7-10 Last administered on 05/10/16 02:45; Admin Dose 2 MG; Start 05/09/16 at 23:30 Docusate Sodium (Colace) 100 mg Q12H PRN PO CONSTIPATION; Start 05/09/16 at 23: 30 Magnesium Hydroxide (Milk Of Mag) 30 ml DAILY PRN PO CONSTIPATION; Start at 23:30 Zolpidem Tartrate (Ambien) 5 mg QHS PRN PO SLEEP Last administered on 01:24; Admin Dose 5 MG; Start 05/09/16 at 23:30 Pantoprazole (Protonix Tab) 40 mg DAILY@06 PO Last administered on 05/23/16 06 :09; Admin Dose 40 MG; Start 05/10/16 at 06:00 Divalproex Sodium (Depakote) 500 mg BID PO Last administered on 05/23/16 09:34 ; Admin Dose 500 MG; Start 05/10/16 at 09:00 Olanzapine (Zyprexa) 5 mg BID PO Last administered on 05/23/16 09:34; Admin Dose 5 MG; Start 05/10/16 at 09:00 Tamsulosin HCl (Flomax) 0.4 mg HS PO Last administered on 05/22/16 23:06; Admin Dose 0.4 MG; Start 05/10/16 at 21:00 Metronidazole 500 mg 500 mg Q8 PO Last administered on 05/23/16 06:09; Admin Dose 500 MG; Start 05/12/16 at 15:30 Ertapenem/Sodium Chloride (Invanz/NS) 100 ml @ 200 mls/hr Q24H IVPB Last administered on 05/22/16 15:02; Admin Dose 200 MLS/HR; Start 05/15/16 at 14:00 KEELEY GUERRA MD May 23, 2016 11:34
--- NOTE | 2016-05-23 12:41 | CONS ---
Date/Time of Note Date/Time of Note DATE: 05/23/16 TIME: 12:39 Assessment/Plan Assessment/Plan Chief Complaint/Hosp Course SUBJECTIVE: No acute changes. Patient is alert, lying comfortably in bed. Denies pain. No fevers. ANTIMICROBIALS: He is on: 1. Invanz 2. Flagyl. PHYSICAL EXAMINATION: GENERAL: Well-developed, elderly man who is in no distress. HEENT: Head atraumatic, normocephalic. Sclerae anicteric. Buccal mucosa dry. NECK: Supple. CHEST: Rise symmetrical. Breath sounds clear. HEART: S1, S2. ABDOMEN: Soft, bowel tones present. EXTREMITIES: No cyanosis. ASSESSMENT: 1. Status post urinary tract infection, acute pyelonephritis. 2. Urinary retention. 3. Perianal abscess refused surgical intervention. 4. History of psych. 5. Status post-acute renal failure. PLAN: The patient remains stable. Completed 2 weeks antibiotics for pyelonephritis, will dc Invanz, start Cipro and continue Flagyl for perianal abscess, f/u surgery/urology/GI rec-s [facility] staff Problems: Consultation Date/Type/Reason Admit Date/Time May 09, 2016 at 19:32 Type of Consultation: ID Exam/Review of Systems Vital Signs Vitals Vital Signs Date Time Temp Pulse Resp B/P Pulse Ox O2 Delivery O2 Flow Rate FiO2 05/22/16 20:00 98.3 66 16 101/56 99 Intake and Output 05/22/16 05/22/16 05/23/16 15:00 23:00 07:00 Intake Total 1820 ml 210 ml Output Total 900 ml 650 ml Balance 920 ml -440 ml Results Result Diagram: 05/20/16 0548 05/20/16 0548 Medications Medications Current Medications Guaifenesin/ Codeine Phosphate (Robitussin Ac Liquid Cup) 5 ml Q4H PRN PO cough ; Start 05/09/16 at 22:30 Ondansetron HCl (Zofran Inj) 4 mg Q6H PRN IV NAUSEA AND/OR VOMITING; Start at 23:30 Acetaminophen (Tylenol Tab) 650 mg Q6H PRN PO PAIN LEVEL 1-3 OR FEVER; Start at 23:30 Acetaminophen/ Hydrocodone Bitart ([place] (5/325)) 1 tab Q6H PRN PO MODERATE PAIN LEVEL 4-6 Last administered on 05/19/16 22:31; Admin Dose 1 TAB; Start at 23:30 Morphine Sulfate (morphine) 2 mg Q4H PRN IV SEVERE PAIN LEVEL 7-10 Last administered on 05/10/16 02:45; Admin Dose 2 MG; Start 05/09/16 at 23:30 Docusate Sodium (Colace) 100 mg Q12H PRN PO CONSTIPATION; Start 05/09/16 at 23: 30 Magnesium Hydroxide (Milk Of Mag) 30 ml DAILY PRN PO CONSTIPATION; Start at 23:30 Zolpidem Tartrate (Ambien) 5 mg QHS PRN PO SLEEP Last administered on 01:24; Admin Dose 5 MG; Start 05/09/16 at 23:30 Pantoprazole (Protonix Tab) 40 mg DAILY@06 PO Last administered on 05/23/16 06 :09; Admin Dose 40 MG; Start 05/10/16 at 06:00 Divalproex Sodium (Depakote) 500 mg BID PO Last administered on 05/23/16 09:34 ; Admin Dose 500 MG; Start 05/10/16 at 09:00 Olanzapine (Zyprexa) 5 mg BID PO Last administered on 05/23/16 09:34; Admin Dose 5 MG; Start 05/10/16 at 09:00 Tamsulosin HCl (Flomax) 0.4 mg HS PO Last administered on 05/22/16 23:06; Admin Dose 0.4 MG; Start 05/10/16 at 21:00 Metronidazole 500 mg 500 mg Q8 PO Last administered on 05/23/16 06:09; Admin Dose 500 MG; Start 05/12/16 at 15:30 Ertapenem/Sodium Chloride (Invanz/NS) 100 ml @ 200 mls/hr Q24H IVPB Last administered on 05/22/16 15:02; Admin Dose 200 MLS/HR; Start 05/15/16 at 14:00 KAITLIN CARLOS NP May 23, 2016 12:41
--- NOTE | 2016-05-23 12:58 | PN ---
DATE: 05/23/2016 SUBJECTIVE: The patient seen, resting comfortably. The patient with no complaints. Case discussed with nursing staff. MRI of the abdomen was ordered to evaluate for possible Crohn's disease. Dr. [place] ordered an MR enterography. The patient refused a colonoscopy unfortunately. PHYSICAL EXAMINATION: VITAL SIGNS: Temperature 98.3, pulse 66, respirations 16, blood pressure 101/56, saturation 99%. GENERAL: The patient is in no acute distress. HEENT: The patient is normocephalic, atraumatic. The patient is pale. Decreased dentition. CARDIOVASCULAR: S1 and S2, regular rate. LUNGS: Clear. ABDOMEN: Soft, nontender. EXTREMITIES: No clubbing, cyanosis, or edema. LABORATORY DATA: No new labs today. MEDICATIONS: 1. Ertapenem 1 gram q.24h. 2. Xarelto 10 mg with dinner. 3. Flagyl 500 q.8h. 4. Synthroid 125 mcg before breakfast. 5. Flomax 0.4 at bedtime. 6. Depakote 500 b.i.d. 7. Zyprexa 5 mg b.i.d. 8. Protonix 40 mg daily. 9. Zofran p.r.n. 10. Tylenol p.r.n. 11. [place] p.r.n. 12. Morphine p.r.n. 13. Colace p.r.n. 14. Milk of magnesia p.r.n. 15. Ambien p.r.n. 16. Robitussin p.r.n. ASSESSMENT AND PLAN: This is an unfortunate 70-year-old -British male with history of psych iatric disorder, urinary retention, benign prostatic hypertrophy, multiple perirectal abscesses and chronic obstructive pulmonary disease, who presented with urinary tract infection, pyelonephritis, u rinary retention, sepsis and multiple infected perirectal abscesses. 1. Urinary tract infection. Finished a course of antibiotics, the patient's repeat culture is nega tive. 2. Urinary retention. Blackmon is in place. Replace Blackmon every month. 3. Multiple perirectal abscesses. Questionable underlying Crohn's disease, MRI to be done today. The patient is refusing colonoscopy and refusing I and D of his abscesses. 4. Psychiatric disorder. Continue Depakote and Zyprexa. 5. Continue Xarelto for deep venous thrombosis prophylaxis. 6. [facility]waiting placement at a [facility] facility. Case discussed with supportive employment case manager. 7. Hypothyroidism. Continue Synthroid 125 mcg daily. Follow up TSH soon. 8. Anemia. No need for transfusion, monitor labs periodically. 9. Noncompliance. We will follow. Dictated By: CHRISTINE MALDONADO/ROLANDO Conf#: [id number] DID#: [id number]
[2016-05-23] MEDS: RIVAROXABAN 10 MG TABLET PO SCH (17:10)
[2016-05-23] MEDS: CIPROFLOXACIN 500 MG TAB NGT SCH (17:10)
--- NOTE | 2016-05-23 18:06 | RADRPT ---
PROCEDURE: MRI abdomen with contrast. MR enterography CLINICAL INDICATION: Flank pain. Concern for pyelonephritis. History of Crohn disease TECHNIQUE: MRI of the abdomen is performed without and with 20 cc Magnevist utilizing axial T2 and T2 fat suppression sequences. Postcontrast images are performed at 30 seconds, 1 minute, 2 minutes and 3 minutes after gadolinium administration. Magnetic resonance enterography protocol was follow ed. The study includes coronal and T2, pre and post contrast fat suppressed T1 as well as axial dif fusion and apparent diffusion coefficient sequences. COMPARISON: CT abdomen and pelvis 05/09/2016 FINDINGS: Visualized lower thorax: There is no evidence for consolidation or pleural effusion. Liver: Hyperintense T2 signal within the left hepatic lobe, lateral segment, is ovoid and measures 2.3 cm having enhancement pattern most consistent with an hemangioma. Liver contour and size are no rmal and there is no ductal dilatation. Gallbladder: Normal in caliber with no filling defects to suggest cholelithiasis and no wall thicke elvi. There is no pericholecystic inflammation. Common bile duct: There is no filling defect to suggest choledocholithiasis. The caliber of the du ct is of normal estimated at 3 mm. Pancreas: There is no finding to suggest pancreatitis, mass or ductal dilatation. Spleen: Normal in size with no masses evident. Adrenal glands: Unremarkable bilaterally. Kidneys: Normal in size with no evidence for masses or hydronephrosis. Subtle areas of patchy decre ased enhancement involving the cortices of the left greater than right kidney are present with patch y areas of decreased apparent diffusion coefficient, findings concerning for pyelonephritis more con spicuous on the left than right side. Previously seen bilateral perinephric and pararenal inflammat ory stranding has decreased compared to the prior examination is not completely resolved. There is no evidence of abscess, the pararenal spaces are normal bilaterally. Ureters: No evidence of dilatation or abnormal adjacent inflammatory stranding. Urinary bladder: A Blackmon catheter is again demonstrated within the lumen and there is diffuse wall thickening which may be related to the contracted state, the wall measuring 1.3 cm. The surrounding fat is normal. Prostate gland: Suboptimally visualized but the volume is estimated at 46 cc. The scrotum is not v isualized Stomach, visualized small bowel and visualized large intestine: MR enterography demonstrates an adeq uately distended stomach with normal wall thickness. The small bowel is normal in caliber throughou t and without evidence of wall thickening. In particular, the distal ileum is normal without wall t hickening. There are no changes of appendicitis. The colon is normal in caliber throughout filling to demonstrate wall thickening. Again suggested is diverticular disease predominate of the sigmoid and descending colon segments without stranding of the surrounding fat to suggest diverticulitis. Peritoneal cavity: There is no evidence of ascites. Abdominal aorta: Normal in caliber estimated at 2 cm. Inferior vena cava: Normal. Vertebral bodies and osseous structures: Normal. Musculature and soft tissues: Normal. RPTAT:HJJR IMPRESSION: 1. Subtle areas of patchy decreased enhancement involving the renal cortices bilaterally, more cons picuous on the left, are consistent with mild pyelonephritis with interval decrease if not complete resolution of the perinephric and pararenal inflammatory fat stranding compared to the CT of 017. 2. No evidence of pararenal abscess. 3. Urinary bladder wall thickening possibly related to contraction around the Blackmon catheter but ag ain cystitis is difficult to exclude, no inflammatory changes of the surrounding fat are demonstrate d. 4. Mild prostatomegaly, the volume estimated at 46 cc. 5. Normal MR enterography without evidence of active Crohn disease. 6. Incidental benign appearing lesion in the left hepatic lobe consistent with an hemangioma. Physician Radha Date Time Electronically viewed and signed by Physician Radha on 05/23/2016 18:06 /
--- NOTE | 2016-05-23 18:45 | PN ---
Date/Time of Note Date/Time of Note DATE: 05/23/16 TIME: 18:43 Assessment/Plan Lines/Catheters IV Catheter Type (from [facility]): Saline Lock Blackmon in Place (from [facility]): Yes Assessment/Plan Chief Complaint/Hosp Course 1. Perianal abscesses probably 2nd Crohn's. He only wants Sitz baths and refusing colonoscopy and surgery. MR noted. -Sitz baths -Antibiotics -Local care. -?Biologic agents for Crohn's -Needs colonoscopy 2. Urinary retention with benign prostatic hypertrophy, status post Blackmon and Flomax. Urology following. 3. Pyelonephritis, status post antibiotics. 4. Leukocytosis with possible sepsis, improving with pyelonephritis and perianal abscesses. Resolved. 5. Anemia without evidence of acute blood loss, continue monitoring. 6. Hypoalbuminemia is multifactorial; however, will benefit from nutritional optimization. 7. Acute renal failure has improved, probably secondary to dehydration. Continue judicious fluid management and avoid nephrotoxic agents. 8. Hypothyroidism. Continue medical management. 9. Psychiatric disorder, on medications. Continue medical optimization. Thank you Problems: Subjective 24 Hr Interval Summary MRI noted. IBD serology positive (Crohn's). No fevers or chills. No nausea vomiting. Minimal buttock pain. No headache. No visual changes. No dysuria however has a Blackmon. No abdominal pain. No cough. No seizure. No rashes. Refusing surgery and colonoscopy Exam/Review of Systems Vital Signs Vitals Vital Signs Date Time Temp Pulse Resp B/P Pulse Ox O2 Delivery O2 Flow Rate FiO2 05/22/16 20:00 98.3 66 16 101/56 99 Intake and Output 05/22/16 05/22/16 05/23/16 15:00 23:00 07:00 Intake Total 1820 ml 210 ml Output Total 900 ml 650 ml Balance 920 ml -440 ml Exam Free Text/Dictation GENERAL: No acute distress, pleasant, and interactive. HEENT: Pupils equal, reactive. No scleral icterus. Mucous membranes are moist appearing. Missing teeth. NECK: Supple, no crepitus, no JVD. PULMONARY: Normal respiratory effort. CARDIAC: S1, S2 present. ABDOMEN: Soft, nontender. EXTREMITIES: No edema. VASCULAR: Cap refill less than 2 seconds. GENITOURINARY: Blackmon in place. RECTAL: Indurated perianal region with fluctuance and purulent discharge bilaterally. Rectal exam without any fluctuance or induration or tenderness within the canal. VASCULAR: Cap refill less than 2 seconds. NEUROLOGICAL: Alert, oriented, moves all 4 extremities grossly. SKIN: No rashes. No jaundice. Perianal induration and abscesses Results Free Text/Dictation MR Enterography: 1. Subtle areas of patchy decreased enhancement involving the renal cortices bilaterally, more conspicuous on the left, are consistent with mild pyelonephritis with interval decrease if not complete resolution of the perinephric and pararenal inflammatory fat stranding compared to the CT of 05/09. 2. No evidence of pararenal abscess. 3. Urinary bladder wall thickening possibly related to contraction around the Blackmon catheter but again cystitis is difficult to exclude, no inflammatory changes of the surrounding fat are demonstrated. 4. Mild prostatomegaly, the volume estimated at 46 cc. 5. Normal MR enterography without evidence of active Crohn disease. 6. Incidental benign appearing lesion in the left hepatic lobe consistent with an hemangioma. Result Diagram: 05/20/16 0548 05/20/16 0548 SHARMILA CANSECO MD May 23, 2016 18:45
[2016-05-23 20:00] VITALS: BP 119/59; RESP 18
[2016-05-23] MEDS: TAMSULOSIN (SR) 0.4 MG CAP PO SCH (21:27)
[2016-05-24] MEDS: CIPROFLOXACIN 500 MG TAB NGT SCH ×2 (06:08→17:45)
[2016-05-24] MEDS: metroNIDAZOLE 500 MG TAB PO SCH ×2 (06:08→14:10)
[2016-05-24] MEDS: LEVOTHYROXINE 125 MCG TAB PO SCH (06:08)
[2016-05-24] MEDS: PANTOPRAZOLE (EC) 40 MG TAB PO SCH (06:08)
[2016-05-24 07:32] VITALS: BP 90/50; RESP 18
[2016-05-24] MEDS: DIVALPROEX (EC) 500 MG TAB PO SCH (08:09)
[2016-05-24] MEDS: OLANZAPINE 5 MG TAB PO SCH (08:09)
[2016-05-24 08:43] VITALS: BP 113/56; PULSE 60
--- NOTE | 2016-05-24 09:47 | PN ---
DATE: 05/24/2016 SUBJECTIVE: Urinary retention. The patient states that he is comfortable. He has no pain and he i s same, no changes. OBJECTIVE VITAL SIGNS: His temperature is 97.7, blood pressure 90/50, pulse is 55, respirations 18. ABDOMEN: Soft. He does have an indwelling Blackmon catheter that is draining clear urine. He has perirectal abscesses, and he refused surgery and even refused having colonoscopy. The patien t also has failed attempt to remove the Blackmon catheter and see if he does urinate on his own. Therefore, the recommendation is to keep the Blackmon catheter in and change it once a month or earlier if needed. Dictated By: UCHE MCCABE/ROLANDO Conf#: [id number] DID#: [id number]
--- NOTE | 2016-05-24 09:58 | PN ---
Date/Time of Note Date/Time of Note DATE: 05/24/16 TIME: 09:55 Assessment/Plan Lines/Catheters IV Catheter Type (from [facility]): Saline Lock Kelsey in Place (from [facility]): Yes Assessment/Plan Chief Complaint/Hosp Course 1. Perianal abscesses probably 2nd Crohn's. He only wants Sitz baths and refusing colonoscopy and surgery. MR noted. -Sitz baths -Antibiotics -Local care. -?Biologic agents for Crohn's -Needs colonoscopy 2. Urinary retention with benign prostatic hypertrophy, status post Kelsey and Flomax. Urology following and recommends keeping kelsey and changing it monthly 3. Pyelonephritis, status post antibiotics. 4. Leukocytosis with possible sepsis, improving with pyelonephritis and perianal abscesses. Resolved. 5. Anemia without evidence of acute blood loss, continue monitoring. 6. Hypoalbuminemia is multifactorial; however, will benefit from nutritional optimization. 7. Acute renal failure has improved, probably secondary to dehydration. Continue judicious fluid management and avoid nephrotoxic agents. 8. Hypothyroidism. Continue medical management. 9. Psychiatric disorder, on medications. Continue medical optimization. Thank you Problems: Subjective 24 Hr Interval Summary Failed kelsey removal attempt by Urology. MRI noted. IBD serology positive ( Crohn's). No fevers or chills. No nausea vomiting. Minimal buttock pain. No headache. No visual changes. No dysuria however has a Kelsey. No abdominal pain. No cough. No seizure. No rashes. Refusing surgery and colonoscopy. Exam/Review of Systems Vital Signs Vitals Vital Signs Date Time Temp Pulse Resp B/P Pulse Ox O2 Delivery O2 Flow Rate FiO2 05/24/16 08:43 60 113/56 05/24/16 07:32 97.7 18 99 Intake and Output 05/23/16 05/23/16 05/24/16 15:00 23:00 07:00 Intake Total 760 ml Output Total 400 ml Balance 360 ml Exam Free Text/Dictation GENERAL: No acute distress, pleasant, and interactive. HEENT: Pupils equal, reactive. No scleral icterus. Mucous membranes are moist appearing. Missing teeth. NECK: Supple, no crepitus, no JVD. PULMONARY: Normal respiratory effort. CARDIAC: S1, S2 present. ABDOMEN: Soft, nontender. EXTREMITIES: No edema. VASCULAR: Cap refill less than 2 seconds. GENITOURINARY: Kelsey in place. RECTAL: Indurated perianal region with fluctuance and purulent discharge bilaterally. Rectal exam without any fluctuance or induration or tenderness within the canal. VASCULAR: Cap refill less than 2 seconds. NEUROLOGICAL: Alert, oriented, moves all 4 extremities grossly. SKIN: No rashes. No jaundice. Perianal induration and abscesses Results Result Diagram: 05/20/16 0548 05/20/16 0548 SHARMILA CANSECO MD May 24, 2016 09:57
[2016-05-24 14:44] LABS: ADD SCAN DIFF NO
[2016-05-24 14:47] LABS: BASOPHILS % 0.3 % (0.0-2.0); EOSINOPHILS # 0.2 10^3/ul (0.0-0.5); EOSINOPHILS % 2.1 % (0.0-7.0); HEMOGLOBIN 11.2 g/dl (14.0-18.0); LYMPHOCYTES # 3.6 10^3/ul (0.8-2.9); LYMPHOCYTES % 38.3 % (15.0-51.0); MEAN CORPUSCULAR HEMOGLOBIN 25.6 pg (29.0-33.0); MEAN CORPUSCULAR HGB CONC 30.3 g/dl (32.0-37.0); MEAN CORPUSCULAR VOLUME 84.7 fl (82.0-101.0); MEAN PLATELET VOLUME 9.5 fl (7.4-10.4); MONOCYTE # 0.3 10^3/ul (0.3-0.9); MONOCYTES % 3.2 % (0.0-11.0); NEUTROPHIL # 5.2 10^3/ul (1.6-7.5); PLATELET COUNT 417 10^3/UL (140-415); RED BLOOD COUNT 4.37 10^6/ul (4.70-6.10); RED CELL DISTRIBUTION WIDTH 17.5 % (11.5-14.5); WHITE BLOOD COUNT 9.4 10^3/ul (4.8-10.8)
--- NOTE | 2016-05-24 14:53 | PDOCDIS ---
Discharge Instructions CONDITION Patient Condition: Stable HOME CARE INSTRUCTIONS: Special Diet: 2 gm na ACTIVITY: Activity Restrictions: Slowly Increase Activity FOLLOW UP/APPOINTMENTS Appointments see reconciliation, follow up with urology Dr. ochoa and surgeon dr. richard holm, change kelsey every month. CHRISTINE CALDERON MD May 24, 2016 14:53
[2016-05-24 15:02] LABS: CALCIUM 9.9 mg/dl (8.4-10.2); CREATININE 1.2 mg/dl (0.61-1.24); POTASSIUM 4.3 mmol/L (3.5-5.1)
[2016-05-24 15:03] LABS: MAGNESIUM 1.9 mg/dl (1.7-2.5)
--- NOTE | 2016-05-24 15:32 | PN ---
DATE: 05/24/2016 SUBJECTIVE: No acute changes. The patient is awake, looks comfortable, no fevers. No labs. ANTIMICROBIALS: He is on: 1. Cipro 2. Flagyl. PHYSICAL EXAMINATION: GENERAL: Well-developed elderly man who is awake, in no distress. HEENT: Head atraumatic, normocephalic. Sclerae anicteric. Buccal mucosa pink. NECK: Supple. CHEST: Rise symmetrical. Breath sounds clear. HEART: S1, S2. ABDOMEN: Soft, bowel sounds present. EXTREMITIES: Without cyanosis. ASSESSMENT: 1. Status post sepsis, acute Escherichia coli extended-spectrum beta-lactamase pyelonephritis, terry mona. 2. Perianal abscess. 3. Urinary retention. 4. History of psychiatric problems. 5. Status post acute renal failure. PLAN: The patient remains stable. Completed antibiotics for pyelonephritis, now on Cipro and Fla gyl. Refusing I and D and colonoscopy. He is being followed by multiple consultants. We will cont inue him on current regimen. Continue sitz bath. Discontinue isolation. Possible transfer to [facility] when bed available. Dictated By: KAITLIN CARLOS TURNAROUND ENGINEER for PATRICK CLEMONS MD NI/NTS Conf#: [id number] DID#: [id number]
--- NOTE | 2016-05-24 16:24 | DS ---
DATE OF ADMISSION: 05/09/2016 DATE OF DISCHARGE: 05/24/2016 REASON FOR ADMISSION: Urinary tract infection, pyelonephritis, acute renal failure, dehydration. M ultiple perirectal abscesses, early sepsis. HOSPITAL COURSE: The patient is a 70-year-old -[place] male with history of COPD, urinary r etention, BPH, multiple perirectal abscesses, anemia, gastroesophageal reflux disease, hypothyroidis m, and psychiatric disorder who currently resides at [facility], prev iously treated for the same at [facility]. The patient was treated with antibiotics , has history of noncompliance. The patient was noted to be acting more confused, so he was transfe rred to the hospital. In the ER, patient was noted to be septic, temperature 99.7, white count elev ated at 15.5. The patient is dehydrated as well. UA was positive. He was noted to have active pus drainage from the perirectal abscesses. Multiple physicians were consulted during this patient's c are including Dr. Wang, the infectious disease specialist, Dr. Jona Espinoza, the urologist, Dr. Daniel Rivas, the surgical scrub tech. Dr. Daniel Rivas recommended I and D, but patient refus ed and Dr. Espinoza, the urologist, recommended TURP, but patient refused. We tried to remove the pa lars's Blackmon catheter with no success and he continued to have urinary retention. The patient had multiple cultures which were positive, including an beta-lactamase Escherichia coli in the urine. H e was treated with 14 days of IV antibiotics that was sensitive only to imipenem, amikacin and cefep karthik. Wound culture showed the same ESBL Escherichia coli sensitive to imipenem. Repeat urine cultu re was negative. We were concerned about possible Crohn's disease, so I consulted Dr. Pillo [place] . We proceeded with an MR enterography to rule out Crohn's disease and it showed subtalar areas of patchy decreased enhancement involving the renal cortices bilaterally more ____ of the left, mild py elonephritis with interval decrease if not complete resolution of the perinephric and perirenal infl ammatory fat stranding compared to CT on 05/09/2016. No evidence of perirenal abscess, urinary blad anshul wall thickening, possibly related to contraction around the Blackmon. Basically this is normal MR enterography without evidence of active Crohn's disease. There is incidental benign appearing lesio n in the left hepatic lobe consistent with hemangioma. There is mild prostatomegaly with volume est imated at 46 mL. The patient was seen by physical therapist as well, as patient is actually ambula tory. Kidney function remained improved with hydration, initially was 1.70. His creatinine now is 1.23. Will continue patient's psychiatric meds. DISCHARGE MEDICATIONS: The patient will now be discharged to the [facility] facility at [facility] with the following medications: 1. Tylenol 650 q.6h. p.r.n. for pain. 2. Ciprofloxacin 500 mg b.i.d. We will prescribe it for 10 days. 3. Depakote 500 mg b.i.d. 4. Colace 100 q. 12 p.r.n. 5. [place] 5/325 q.6h. p.r.n. for moderate pain. 6. Synthroid 125 mcg daily. I did reduce the dose as the patient's TSH was on the low side. 7. Milk of magnesia p.r.n. 8. Flagyl 500 q.8h. Also, will prescribe it for 10 days for his rectal abscesses. 9. Zyprexa 5 mg b.i.d. 10. Zofran 4 mg q.4h p.o. p.r.n. for nausea and vomiting. 11. Protonix 40 mg daily. 12. We will discontinue the Xarelto, which was for DVT prophylaxis, as the patient is ambulatory. 13. Flomax 0.4 at bedtime. 14. Ambien 5 mg at bedtime p.r.n. for insomnia. 15. Multivitamin with minerals 1 tab daily. 16. We will also continue with ferrous sulfate 325 mg daily, as he was taking before for his anemia . Again, the patient has refused colonoscopy to evaluate for Crohn's Disease. He refused a TURP and r efused I and D of rectal abscesses. DISPOSITION: Patient was transferred today to the [facility] facility center at [facility]. FINAL DIAGNOSES: 1. Sepsis. 2. Pyelonephritis, urinary tract infection. 3. Urinary retention. 4. Benign prostatic hypertrophy. 5. Multiple infected perirectal abscesses. 6. Psychiatric disorder. 7. Hypothyroidism. 8. Anemia of chronic disease and iron deficiency anemia. 9. Chronic obstructive pulmonary disease. The patient is a smoker. 10. Nicotine dependency. 11. Generalized muscle weakness secondary to prolonged hospitalization. 12. Blackmon will need to be changed every month. 13. Poor compliance. Follow up with urology, ID and rectal surgeon. The patient will be discharged today in fair conditi on. He can also mild cyanosis. DIET: Two gram sodium. ACTIVITY: As tolerated with physical therapy. Dictated By: CHRISTINE MALDONADO/ROLANDO Conf#: [id number] DID#: [id number]
--- NOTE | 2016-05-24 16:40 | CONS ---
Date/Time of Note Date/Time of Note DATE: 05/24/16 TIME: 16:39 Assessment/Plan Assessment/Plan Additional Assessment/Plan Assessment/Plan Additional Assessment/Plan Additional Assessment/Plan IMPRESSION: 1. Multiple perirectal abscesses. 2. Pyelonephritis. 3. Urinary retention. 4. Psychiatric disorder. 5. Chronic obstructive pulmonary disease. 6. Hypothyroidism. 7. Anemia. Plan Continue present care Patient declined rectal examination. IBD serology came positive for Crohn's disease colonoscopy if pt agrees if patient does not agree for colonoscopy he definitely needs MR enterography. If MR enterography is positive for Crohn's disease then we should start this patient on biological agent Patient has agreed for MRI.,enterograffin negative Consultation Date/Type/Reason Admit Date/Time May 09, 2016 at 19:32 Type of Consultation: ID [id number] HR Interval Summary Constitutional: improved, no complaints Exam/Review of Systems Vital Signs Vitals Vital Signs Date Time Temp Pulse Resp B/P Pulse Ox O2 Delivery O2 Flow Rate FiO2 05/24/16 08:43 60 113/56 05/24/16 07:32 97.7 18 99 Intake and Output 05/23/16 05/23/16 05/24/16 14:59 22:59 06:59 Intake Total 760 ml Output Total 400 ml Balance 360 ml Exam Constitutional: alert, oriented, well developed Psych: nl mood/affect, no complaints Head: atraumatic, normocephalic Eyes: EOMI, PERRL, nl conjunctiva, nl lids, nl sclera ENMT: nl external ears & nose, nl lips & teeth, nl nasal mucosa & septum Neck: non-tender, supple Respiratory: clear to auscultation, normal air movement Cardiovascular: nl pulses, regular rate and rhythm Gastrointestinal: nl liver, spleen, non-tender, soft Musculoskeletal: nl extremities to inspection, nl gait and stance Extremities: normal pulses Neurological: ANIMAL ASSISTED THERAPIST II-XII intact, nl mental status, nl speech, nl strength Skin: nl turgor, No rash or lesions Lymph: nl lymph nodes Results Result Diagram: 05/24/16 1430 05/24/16 1430 Results 24 hrs Laboratory Tests Test 05/24/16 14:30 White Blood Count 9.4 # Red Blood Count 4.37 L Hemoglobin 11.2 L Hematocrit 37.0 L Mean Corpuscular Volume 84.7 Mean Corpuscular Hemoglobin 25.6 L Mean Corpuscular Hemoglobin Concent 30.3 L Red Cell Distribution Width 17.5 H Platelet Count 417 H Mean Platelet Volume 9.5 Neutrophils % 56.0 Lymphocytes % 38.3 Monocytes % 3.2 Eosinophils % 2.1 Basophils % 0.3 Nucleated Red Blood Cells % 0.0 Neutrophils # 5.2 Lymphocytes # 3.6 H Monocytes # 0.3 Eosinophils # 0.2 Basophils # 0.0 Nucleated Red Blood Cells # 0.0 Sodium Level 142 Potassium Level 4.3 Chloride Level 111 H Carbon Dioxide Level 21 Anion Gap 14 Blood Urea Nitrogen 20 Creatinine 1.20 Glucose Level 135 Calcium Level 9.9 Phosphorus Level 3.0 Magnesium Level 1.9 Medications Medications Current Medications Guaifenesin/ Codeine Phosphate (Robitussin Ac Liquid Cup) 5 ml Q4H PRN PO cough ; Start 05/09/16 at 22:30 Ondansetron HCl (Zofran Inj) 4 mg Q6H PRN IV NAUSEA AND/OR VOMITING; Start at 23:30 Acetaminophen (Tylenol Tab) 650 mg Q6H PRN PO PAIN LEVEL 1-3 OR FEVER; Start at 23:30 Acetaminophen/ Hydrocodone Bitart ([place] (5/325)) 1 tab Q6H PRN PO MODERATE PAIN LEVEL 4-6 Last administered on 05/19/16 22:31; Admin Dose 1 TAB; Start at 23:30 Morphine Sulfate (morphine) 2 mg Q4H PRN IV SEVERE PAIN LEVEL 7-10 Last administered on 05/10/16 02:45; Admin Dose 2 MG; Start 05/09/16 at 23:30 Docusate Sodium (Colace) 100 mg Q12H PRN PO CONSTIPATION; Start 05/09/16 at 23: 30 Magnesium Hydroxide (Milk Of Mag) 30 ml DAILY PRN PO CONSTIPATION; Start at 23:30 Zolpidem Tartrate (Ambien) 5 mg QHS PRN PO SLEEP Last administered on 01:24; Admin Dose 5 MG; Start 05/09/16 at 23:30 Pantoprazole (Protonix Tab) 40 mg DAILY@06 PO Last administered on 05/24/16 06 :08; Admin Dose 40 MG; Start 05/10/16 at 06:00 Divalproex Sodium (Depakote) 500 mg BID PO Last administered on 05/24/16 08:09 ; Admin Dose 500 MG; Start 05/10/16 at 09:00 Olanzapine (Zyprexa) 5 mg BID PO Last administered on 05/24/16 08:09; Admin Dose 5 MG; Start 05/10/16 at 09:00 Tamsulosin HCl (Flomax) 0.4 mg HS PO Last administered on 05/23/16 21:27; Admin Dose 0.4 MG; Start 05/10/16 at 21:00 Metronidazole (Flagyl) 500 mg Q8 PO Last administered on 05/24/16 14:10; Admin Dose 500 MG; Start 05/12/16 at 15:30 Ciprofloxacin (Cipro) 500 mg BID@06,18 NGT Last administered on 05/24/16 06:08 ; Admin Dose 500 MG; Start 05/23/16 at 18:00 KEELEY GUERRA MD May 24, 2016 16:40
[2016-05-24] MEDS: RIVAROXABAN 10 MG TABLET PO SCH (17:45)
== END 2016-05-24 18:10 | DRG 872 ==
LOC: E/R 17:01 → MS2 19:32
PROVIDERS: ADMIT Internal Medicine; ATTEND Internal Medicine
DX: A41.9 Sepsis, unspecified organism (principal); N17.8 Other acute kidney failure; N13.6 Pyonephrosis; K61.1 Rectal abscess; N39.0 Urinary tract infection, site not specified; E03.9 Hypothyroidism, unspecified; J44.9 Chronic obstructive pulmonary disease, unspecified; N40.1 Benign prostatic hyperplasia with lower urinary tract symptoms; R33.8 Other retention of urine; F32.9 Major depressive disorder, single episode, unspecified; Z72.0 Tobacco use; Z91.19 Patient's noncompliance with other medical treatment and regimen; D50.0 Iron deficiency anemia secondary to blood loss (chronic); B96.20 Unspecified Escherichia coli [E. coli] as the cause of diseases classified elsewhere; E86.0 Dehydration; Z79.02 Long term (current) use of antithrombotics/antiplatelets; E88.09 Other disorders of plasma-protein metabolism, not elsewhere classified
CPT/HCPCS: 36415; 71010; 74176; 74183; 80048; 80053; 81001; 81003; 83605; 83735; 84100; 84443; 84484; 85025; 85610; 85730; 87040; 87045; 87070; 87081; 87086; 93005; 96365; J0743; J1335; J1644; J2270; J7030